=== PATIENT | male | born 1960 | race Caucasian/White ===

== ENCOUNTER 2018-11-06 01:27 | Inpatient (IN) | payer MEDICARE ==
[~2018-11-06] VITALS: Ht 182.9 cm; Wt 136.6 kg
[2018-11-06 03:08] LABS: BASOPHILS 0.2 % (0-2); EOSINOPHILS 0 % (0-7); HEMOGLOBIN 13.5 g/dL (13.5-17.5); IMMATURE GRANULOCYTES 0.4 % (0-5); LYMPHOCYTES 3.6 % (15-50); MCH 25.4 pg (26.0-34.0); MCHC 32.9 g/dL (31.0-37.0); MCV 77.2 fL (80.0-100.0); MONOCYTES 10.2 % (2-11); NEUTROPHILS 85.6 % (40-80); PLATELET COUNT 229 10x3/uL (130-400); RBC 5.31 10x6/uL (4.20-6.10); RDW 16.1 % (11.5-14.5); WBC 17.6 10x3/uL (4.8-10.8)
[2018-11-06 03:22] LABS: ALBUMIN 2.2 g/dL (3.4-5.0); ANION GAP 11.9 mmol/L (8-16); BILIRUBIN - TOTAL 1.15 mg/dL (0.2-1.3); CALCIUM 7.7 mg/dL (8.5-10.1); CARBON DIOXIDE 26.2 mmol/L (21.0-32.0); CREATININE - SERUM 1.4 mg/dL (0.6-1.3); POTASSIUM - SERUM 4.1 mmol/L (3.5-5.1); PROTEIN - SERUM 6.8 g/dL (6.4-8.2)
[2018-11-06 04:15] VITALS: BP 145/72
[2018-11-06 07:45] VITALS: BP 145/72; BMI 36.7
[2018-11-06 08:00] VITALS: BP 93/57
--- NOTE | 2018-11-06 08:30 | NUR ---
BP WAS LOW. PLACED IN [place]. WILL CONTINUE TO MONITOR.
[2018-11-06 12:30] VITALS: BP 106/109
[2018-11-06 16:00] VITALS: BP 130/60
--- NOTE | 2018-11-06 16:52 | MORECARE ---
CASE MANAGEMENT DISCHARGE SUMMARY PATIENT: KUSUM SHAY UNIT: [id number] ADM DATE: 11/06/18 AGE: 58 : 62 SEX: M ROOM/BED: D.2209 AUTHOR: BRIAN HOLLINGSWORTH PHYSICIAN: REFERRING PHYSICIAN: ALIA IZQUIERDO MD DATE OF SERVICE: 11/06/18 Discharge Plan Patient Name: KUSUM SHAY Facility: [facility]:[place] : 1960 Planned Disposition: Home Anticipated Discharge Date: Discharge Date: Expected LOS: Initial Reviewer: [id number] Initial Review Date: 11/06/2018 Generated: 11/06/18 5:52 pm Comments DCP- Discharge Planning Updated by [email or web address]: Roxanne Pineda on 11/06/18 3:[address] Patient Name: KUSUM SHAY Admission Status: ER Accout number: [id number] Admission Date: 11-06-2018 : 1960 Admission Diagnosis: Attending: ALIA IZQUIERDO Current LOS: 1 Anticipated DC Date: Planned Disposition: Home Primary Insurance: [facility] [employer] Discharge Planning Comments: CM met with patient to assess discharge planning needs. Patient stated that he lives independently at home and plans to return there at DC. He does not have a PCP and does not use any DME at home. He stated that he will call a friend to take him home and at this time he will not need Home health. His home is safe to return at DC. CM will continue to follow and assist with DC planning as needed Station Usher: Roxanne Pineda DCPIA - Discharge Planning Initial Assessment Updated by [id number]: Roxanne Pineda on 11/06/18 4:46 pm * Is the patient Alert and Oriented? Yes * How many steps to enter\exit or inside your home? * PCP NONE * Pharmacy [facility] * Preadmission Environment Home with Family * ADLs Independent * Equipment None * List name and contact numbers for known caregivers / representatives who currently or will assist patient after discharge: NONE * Verbal permission to speak to the caregivers and representatives has been obtained from the patient. N/A * Community resources currently utilized None * Additional services required to return to the preadmission environment? No * Can the patient safely return to the preadmission environment? Yes * Has this patient been hospitalized within the prior 30 days at any hospital? No Patient Name: KUSUM SHAY Page [id number] at 1652 All edits/amendments must be made on the electronic document DICTATION DATE: 11/06/181651 FEATHER MIXER: ROSELYN 11/06/181651 RPT#: [id number] DC DATE: STATUS: ADM IN [facility] [address] [place] [address] END OF REPORT
[2018-11-06 21:31] VITALS: BP 131/70
[2018-11-06 22:34] LABS: APPEARANCE CLEAR (CLEAR); BILIRUBIN NEGATIVE (NEGATIVE); COLOR YELLOW (YELLOW); GLUCOSE NEGATIVE (NEGATIVE); KETONE NEGATIVE (NEGATIVE); NITRITE NEGATIVE (NEGATIVE); PROTEIN TRACE mg/dL (NEGATIVE); UROBILINOGEN NORMAL (NORMAL)
[2018-11-07 06:16] VITALS: BP 130/79
[2018-11-07 06:47] LABS: BASOPHILS 0.3 % (0-2); EOSINOPHILS 0.1 % (0-7); HEMATOCRIT 38.2 % (42.0-54.0); HEMOGLOBIN 12.6 g/dL (13.5-17.5); IMMATURE GRANULOCYTES 0.6 % (0-5); LYMPHOCYTES 6.4 % (15-50); MCH 25.7 pg (26.0-34.0); MCV 77.8 fL (80.0-100.0); MEAN PLATELET VOLUME 11.1 fL (7.4-10.4); NEUTROPHILS 87.6 % (40-80); PLATELET COUNT 234 10x3/uL (130-400); RBC 4.91 10x6/uL (4.20-6.10); RDW 16.4 % (11.5-14.5); WBC 19.3 10x3/uL (4.8-10.8)
[2018-11-07 06:54] LABS: ALBUMIN 1.8 g/dL (3.4-5.0); ANION GAP 17.4 mmol/L (8-16); BILIRUBIN - TOTAL 1.95 mg/dL (0.2-1.3); CALCIUM 7.1 mg/dL (8.5-10.1); CARBON DIOXIDE 21.4 mmol/L (21.0-32.0); CREATININE - SERUM 1.4 mg/dL (0.6-1.3); POTASSIUM - SERUM 4.8 mmol/L (3.5-5.1); PROTEIN - SERUM 5.4 g/dL (6.4-8.2)
--- NOTE | 2018-11-07 08:28 | NUR ---
PT RESTING IN BED. SHORT TEMPERED. SCROTUM EDEMATOUS. REQUESTING TO SPEAK TO DOCTOR. SHEET ON ONLY. REFUSED TO PUT ON GOWN. NO S/S OF ACUTE DISTRESS. CL IN PLACE.
[2018-11-07 09:13] VITALS: BP 127/77
--- NOTE | 2018-11-07 11:42 | NUR ---
PT WANTING TO BE TRANSFERRED TO [facility]. PT DOES NOT FEEL HE IS GETTING "ADEQUATE CARE". SPOKE WITH CHARGE NURSE WHO SPOKE WITH KARINA WHO HAD ME CALL STONE RUBBER. SPOKE WITH STONE RUBBER ABOUT THE PT CONCERNS ABOUT SCROTUM BEING "WORSE" PER PT. NEW ODERS BEING PUT IN BY STONE RUBBER AND SHE WILL ROUND AND SEE PT SOON. CALLED DR WOLFE TO SEE IF HE WANTED TO ADD ANYTHING TO [facility] NEW ORDERS. LEFT VOICEMAIL.
--- NOTE | 2018-11-07 12:34 | NUR ---
CALLED DR WOLFE. SPOKE WITH HIM ABOUT WHAT THE SUPPORT REPRESENTATIVE HAD ORDERED AND TO CHECK AND SEE IF HE WANTED TO ADD ANYTHING. DR WOLFE WAS GOOD WITH THE SALVAGE ENGINEER ORDER AND THE CONSULT FOR SX.
[2018-11-07 15:16] VITALS: BP 154/74
--- NOTE | 2018-11-07 19:46 | NUR ---
LATE ENTRY 1400. TOLD TO PLACE PT IN ISOLATION PER RAILROAD CAR INSPECTOR. SPOKE WITH SUDEEP TEJEDA WHO STATED, PT NEEDS TO BE TRANS TO [facility]. F/C NEEDS PLACED ONCE IN UNIT. SUDEEP STEINER AND DR WOLFE CAME PRIOR TO TRANSPORT AND THEY WANTED TO KEEP PT ON FLOOR AND DO TRANSFER ONCE PT WAS OUT OF SX. FC TO BE PLACED IN SX PER DR. WOLFE. CONSENTS SIGNED WITH PT. BELONGINGS BAGGED AND SENT WITH SX WITH PT. NO S/S OF ACUTE DISTRESS. CL IN PLACE.
--- NOTE | 2018-11-07 20:24 | NUR ---
LATE ENTRY 1944 SENT WALLET, CELL PHONE, PRINCIPAL LIBRARIAN, AND GLASSES IN PERSONAL BELONGINGS BAG TO SX. SPOKE TO BARRIE. CALLED REPORT TO ALIREZA IN ICU. PT TRANS OFF UNIT BY OR STAFF. NO S/S OF ACUTE DISTRESS.
--- NOTE | 2018-11-07 22:27 | NUR ---
PATIENT PACKED WITH KERLIX SOAKED IN [place] SOLUTION.
[2018-11-07 23:05] VITALS: BP 100/66
[2018-11-08] VITALS (25 sets, daily range): BP systolic 86–125; BP diastolic 38–81; Ht 182.9 cm; Wt 136.6 kg
--- NOTE | 2018-11-08 00:21 | NUR ---
PT RECEIVED FROM RECOVERY ON ICU WITH 2 NURSES. PT PLACED ON MONITOR. DRESSING TO GROIN ASSESSED AND REINFORCED PER ORDERS TO REINFORCE ONLY. RIGHT SUBCLAVIAN NOTED WITH DRESSING C/D/I. LIRIANO WITH PINK URINE. ELECTRO OPTICS ENGINEER STARTED WITH PT INSTRUCTED ON USE AND TAUGHT PAIN MANAGEMENT. SHEET AND PAD CHANGED PT TOLERATED WELL. CALL LIGHT AND ELECTRO OPTICS ENGINEER IN REACH. WILL CONTINUE TO OBSERVE. RECEIVED ORDERS FROM DR GILES FOR CVP, BOLUS FLUIDS TO MAINTAIN URINE PRODUCTION AND CONSULT PULMONARY IN AM FOR CRITICAL CARE MANAGEMENT.
--- NOTE | 2018-11-08 02:15 | NUR ---
PT RESTING WITH EYES CLOSED AND CHEST RISING. PT ON ROOM AIR. SPO2 95% OR GREATER. WILL CONTINUE TO OBSERVE.
--- NOTE | 2018-11-08 03:20 | NUR ---
REASSESSMENT COMPLETED, SEE FLOW SHEET. CVP 10. DRESSING INTACT, NO NEED FOR REINFORCEMENT AT THIS TIME. WILL CONTINUE TO OBSERVE.
[2018-11-08 04:45] LABS: MCHC 32.4 g/dL (31.0-37.0); MCV 77.1 fL (80.0-100.0); MEAN PLATELET VOLUME 10.6 fL (7.4-10.4); PLATELET COUNT 241 10x3/uL (130-400); RDW 16.6 % (11.5-14.5); WBC 17.7 10x3/uL (4.8-10.8)
[2018-11-08 04:55] LABS: HEMATOCRIT 29.9 % (42.0-54.0); HEMOGLOBIN 9.7 g/dL (13.5-17.5); RBC 3.88 10x6/uL (4.20-6.10)
[2018-11-08 05:11] LABS: ALKALINE PHOSPHATASE 101 U/L (46-116); ALT (SGPT) 29 U/L (10-68); CALC OSMOLALITY 280 mosm/kg (275-300); CARBON DIOXIDE 23.2 mmol/L (21.0-32.0); CHLORIDE - SERUM 103 mmol/L (98-107); CREATININE - SERUM 1.6 mg/dL (0.6-1.3); GLUCOSE 124 mg/dL (74-106); PHOSPHOROUS 4.5 mg/dL (2.5-4.9); POTASSIUM - SERUM 4.7 mmol/L (3.5-5.1); PROTEIN - SERUM 4.9 g/dL (6.4-8.2); SODIUM 136 mmol/L (136-145); UREA NITROGEN 35 mg/dL (7-18); eGFR NON AFRICAN AMERICAN 48 mL/min (90-120)
[2018-11-08 05:14] LABS: LYMPHOCYTES 13 % (15-50); NEUTROPHILS 84 % (40-80); PLATELET ESTIMATE NORMAL
[2018-11-08 05:28] LABS: MAGNESIUM - SERUM 1.9 mg/dL (1.8-2.4)
[2018-11-08 05:29] LABS: ALBUMIN 1.2 g/dL (3.4-5.0); CALCIUM 6.5 mg/dL (8.5-10.1); TROPONIN-I < 0.017 ng/mL (0.000-0.060)
--- NOTE | 2018-11-08 05:35 | NUR ---
PT WATCHING TV. NO COMPLAINTS OF EXCESSIVE PAIN. USING THREAD LASTER WITHOUT REMINDING. WILL CONTINUE TO OBSERVE.
--- NOTE | 2018-11-08 07:19 | NUR ---
PULMONARY OFFICE CALLED TO INFORM OF CONSULT FOR CRITICAL MANAGEMENT. WILL CONTINUE. WILL CONTINUE TO OBSERVE.
--- NOTE | 2018-11-08 08:02 | OP ---
PATIENT NAME: KUSUM SHAY MEDICAL RECORD: [id number] :62 LOCATION:[facility] D.2309 ADMISSION DATE:11/06/18 SURGEON: AUGUSTUS WOLFE MD DATE OF OPERATION: 11/07/2018 CO-SURGEON: Augustus Thompson MD and Augustus Wolfe MD ANESTHESIA: General anesthesia by Lyle Tang CRNA. 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 PROCEDURE: By Dr. Wolfe was cystoscopy and insertion of Butler catheter. Procedure by Dr. Thompson was proctoscopy and insertion of central venous line in the right subclavian vein. Jointly done was excisional debridement of necrotic tissue, excision of the left hemiscrotum, and left orchiectomy. SPECIMENS: Necrotic skin in Camper's fascia, left hemiscrotum, left testicle and cord, and wound culture swabs. FINDINGS: Multiple abscess pockets in the Camper's fascia with necrotic fat and overlying skin. Thrombosed left spermatic cord veins, though the arterial supply was still present by the Doppler. Organized abscess formed in the lower pole of the left testicle. Main area of debridement is 320 x 130 mm in extension of the left peritoneum and includes the left hemiscrotum, which was excised, and the left inguinal region all the way lateral to the left thigh. BLOOD LOSS: Difficult to estimate. CLINICAL HISTORY: This is a 58-year-old man who has quite severe psoriasis. Otherwise, he never sees a doctor and his medical history is really unknown. He came to the Emergency Room after 3 or 4 days of severe scrotal and perineal pain. He also describes some dysuria. He had quite an elevated white count as he had a fever. Blood and urine cultures were obtained. He was started on Levaquin initially. Today, his white count was even higher and the nurses reported that the swelling in the scrotum and perineum had increased. As well, the erythema which was noted suprapubically yesterday had encroached on to the left thigh and left inguinal region. He was seen by general surgery and a CT scan was ordered. The CT scan showed gas in the left perineal region. There is also what looks like either cyst or abscess in the left testicle. He was brought to the operating room with a diagnosis of Bushra gangrene. He was informed that he will need debridement of all necrotic tissue and that this debridement may include the scrotum, the testicle, and the penis. Also, there is involvement of the rectum. We may have to create a diverting colostomy or ileostomy. He did consent to all necessary procedures and he was already on wide-spectrum antibiotics on the floor and we did not give him any further wide-spectrum antibiotics. Blood was cross matched. DESCRIPTION OF PROCEDURE: The patient was given induction of general anesthesia in supine position. He was then placed into dorsal lithotomy position using the Yellofin stirrups. He was then prepped and draped. On the floor, a Butler catheter could not be inserted due to the patient's severe tenderness and the scrotal edema effectively burying the penis. Once he was asleep, I was able to get the glans penis exposed. A flexible cystoscope was used. The urethra was OPERATIVE REPORT [id number] KUSUM SHAY completely normal. There were no signs of ischemia anywhere in the urethra. We went into the bladder, which was also normal with no bladder tumors being seen. A Sensor wire was then placed through the scope into the bladder. The cystoscope was then removed, leaving the Sensor wire in place. Over the Sensor wire, a 16-Maori sun'aq tip Butler catheter was placed into the bladder. The balloon was then inflated with 10 cc of sterile water and the wire was removed entirely. While I was doing this, Dr. Thompson placed a central venous line in the right subclavian vein. Once the cystoscopy was over Dr. Thompson then performed proctoscopy. He did not find any evidence of ischemia in the rectum. We then proceeded with excision. We first made an incision over the left perineum where the skin was most fluctuant and showed some crepitation. This immediately released a degree of pus. Culture swabs were obtained. We started to debride all the necrotic tissue. As we extended our way anteriorly, we encountered the left hemiscrotum. We opened the left hemiscrotum and pus came out of the hemiscrotum. Examining the testicle, the lower portion of the testicle was effectively an abscess. Looking at the cord on the left testicle, we noticed that there were thrombosed veins in the spermatic cord. A Doppler device was used and we did detect arterial flow in the left spermatic cord for the time being. We decided to remove the testicle as its future viability was in doubt. A large Arcelia clamp was placed across the cord and then the testicle was excised by cutting across the cord. A 2-0 Prolene suture was used for suture ligation of the cord. We then continued our dissection cranially. There was a lot of abdominal subcutaneous fat, which contained abscesses and necrosis. All of this was excised. The overlying skin did appear pink at this moment, but the underlying fat was actually necrotic. Therefore, it is only a question of time before the overlying skin would turn necrotic. We continued following the abscesses anteriorly and laterally until we were over the femoral vessels with gentle dissection. We did not go through the fascia chava. No injury to the femoral artery or other veins was present. We continued the dissection over the fascia chava until we got to viable tissue near the left greater trochanter of the hip. At this point, we had an extensive wound defect, which we measured to be 320 mm x 130 mm wide. The wound was irrigated out using peroxide. We then packed the wound with Kerlix, infiltrated with Dakin solution. Retention sutures of 2-0 nylon were used to bring some of the wound edges a bit towards each other and therefore keep the wound packing in place. He will be transferred to the intensive care unit. The plan is for a possible second look with possible repeat debridement in the near future, possibly even tomorrow. TRANSINT:[id number] Voice Confirmation ID: [id number] DOCUMENT ID: [id number] AUGUSTUS WOLFE MD at 0802 CC: [id number] DICTATION DATE: 11/07/182210 AIDS NURSE: 11/08/18 0242 ADM IN [facility] [address] [place] [address]
--- NOTE | 2018-11-08 09:00 | NUR ---
DR WOLFE IN TO SEE PATIENT
--- NOTE | 2018-11-08 12:00 | NUR ---
LUNCH TRAY PROVIDED TO PATIENT. SAYS NOT HUNGRY. REFUSES TRAY. FAMILY HAS EDGAR HIM POPCICLES
--- NOTE | 2018-11-08 14:45 | NUR ---
INCENTIVE SPIROMETRY GIVEN TO PATIENT. INSTRUCTED ON USE AND PURPOSE
--- NOTE | 2018-11-08 15:04 | NUR ---
ILEANA WITH DR IZQUIERDO OFFICE BY TO SEE PATIENT. NEW ORDERS RECEIVED
--- NOTE | 2018-11-08 19:20 | NUR ---
Received patient resting in bed with eyes open, assessment completed per flowsheet. Groin site dressing intact, drainage noted on dressing. All pulses palpable with cap refill < 3 sec, generalized edema noted all extremities. METROPOLITAN EDITOR in use for pain mgmt, denies further needs at this time. See flowsheet for details, all VSS and will continue to monitor.
--- NOTE | 2018-11-08 21:00 | NUR ---
Patient resting in bed with eyes closed, HS meds given without difficulty. BURR SANDER in use for pain mgmt, no further needs and will continue to monitor.
--- NOTE | 2018-11-08 23:10 | NUR ---
Reassessment completed per flowsheet, no changes from previous assessment. Groin dressing intact, drainage noted with dressing reinforced. All pulses palpable with cap refill < 3 sec, skin warm/dry with generalized edema noted. METHODS ENGINEER in use for pain mgmt, no further needs at this time. See flowsheet for details, all VSS and will continue to monitor.
[2018-11-09] VITALS (14 sets, daily range): BP systolic 117–130; BP diastolic 60–88
--- NOTE | 2018-11-09 01:00 | NUR ---
Patient sleeping in bed with eyes closed, denies pain or other needs at this time. Groin dressing intact, drainage noted. Denies pain or other needs and will continue to monitor.
--- NOTE | 2018-11-09 03:05 | NUR ---
Reassessment completed per flowsheet, no changes from previous assessment. Groin dressing intact, drainage noted on dressing and reinforced. All pulses palpable with cap refill < 3 sec, skin warm/dry. MARKETING PROFESSIONAL in use for pain mgmt, denies other needs at this time. See flowsheet for details, all VSS and will continue to monitor.
[2018-11-09 04:49] LABS: BASOPHILS 0.5 % (0-2); HEMATOCRIT 28.2 % (42.0-54.0); HEMOGLOBIN 9.2 g/dL (13.5-17.5); IMMATURE GRANULOCYTES 2.8 % (0-5); MCHC 32.6 g/dL (31.0-37.0); MCV 76.6 fL (80.0-100.0); MEAN PLATELET VOLUME 10.4 fL (7.4-10.4); MONOCYTES 7.4 % (2-11); NEUTROPHILS 79.3 % (40-80); RBC 3.68 10x6/uL (4.20-6.10); RDW 16.9 % (11.5-14.5); WBC 18.5 10x3/uL (4.8-10.8)
[2018-11-09 04:50] LABS: PLATELET COUNT 323 10x3/uL (130-400)
[2018-11-09 05:03] LABS: ALBUMIN 1.2 g/dL (3.4-5.0); ANION GAP 13.2 mmol/L (8-16); BILIRUBIN - TOTAL 0.85 mg/dL (0.2-1.3); POTASSIUM - SERUM 4.2 mmol/L (3.5-5.1); PROTEIN - SERUM 5.1 g/dL (6.4-8.2)
[2018-11-09 05:09] LABS: CREATININE - SERUM 1.1 mg/dL (0.6-1.3)
[2018-11-09 05:11] LABS: CALCIUM 6.6 mg/dL (8.5-10.1)
--- NOTE | 2018-11-09 13:37 | NUR ---
PRE-OP MEDICATIONS PROVIDED REQUESTED BY ARCHANA SY
--- NOTE | 2018-11-09 14:28 | NUR ---
DR GILES HAS BEEN AT BEDSIDE. EXPLAINED POTENTIALS OF SURGERY. ASKED IF THERE WERE ANY FAMILY HE SHOULD SPEAK TO AND PATIENT REQUESTED HE NOT SPEAK TO ANY OF HIS FAMILY MEMBERS. BROTHER NOW AT BEDSIDE SPEAKING WITH PATIENT. SURGERY TEAM ON UNIT.
--- NOTE | 2018-11-09 14:50 | NUR ---
DR IZQUIERDO BY TO SEE PATIENT
--- NOTE | 2018-11-09 14:58 | NUR ---
PT OFF UNIT TO Freddie
--- NOTE | 2018-11-09 20:00 | NUR ---
RECEIVED PATIENT FROM PACU, LETHARGIC BUT OPENS EYES TO VERBAL COMMAND. PATIENT IS DEMANDING SOMETHING TO EAT AND DRINK BUT WAS TOLD BY THE SALES ACCOUNT LEADER THAT HE JUST UNDERWENT A MAJOR SURGERY AND HE SHOULD WAIT A LITTLE WHILE. PATIENT AGREED. HE IS ALSO PULLING HIS O2 MASK OFF AND PULLING AT HIS CVL. RESTRAINTS WERE APPLIED IN PACU, NEW ORDER PLACED FOR HERE/ICU AND PATIENT RESTRAINED FOR HIS SAFETY. INITIAL SHIFT ASSESMENT COMPLETED, SEE FLOWSHEET. VSS. WILL MONITOR CLOSELY THROUGH OUT THE NIGHT.
--- NOTE | 2018-11-09 20:24 | NUR ---
1935 - 2 PT SOFT WRIST RESTRAINTS RELEASED. PT NOT ATTEMPTING TO PULL AT VITAL LINES, ETC. BILAT WRIST ASSESSED, NO TRAUMA OR MARKING NOTED.
--- NOTE | 2018-11-09 20:37 | OP ---
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 PROCEDURES: 1. Wide excisional debridement of necrotizing fasciitis/gas gangrene of the scrotum as well as the left anterior superior thigh, the left perineum, and a portion of the left groin and left lower quadrant. 2. Left orchiectomy. 3. Placement of right supraclavicular subclavian triple-lumen central venous line. 4. Rigid proctoscopy. SURGEON AND COSURGEON FOR THE CASE: The urologist is Dr. Wolfe. General surgeon is Dr. Augustus Giles. ANESTHESIA: General. COMPLICATIONS: None. BLOOD LOSS: Please see the anesthesia sheet. Please see the dimensions for the excisional debridement in Dr. Wolfe's note. We debrided back to viable bleeding tissue. All of the infected tissue that we could identify was excised. Dr. Wolfe performed the cystoscopy as well as placement of the Butler catheter. I performed a proctoscopy to ensure that the necrotizing fasciitis was not involving the miranda of the rectum or the anus and it appeared that indeed these structures were viable. Also, I placed a central venous line for central venous pressure monitoring as well as for numerous IV medications and total parenteral nutrition, which the patient will need. OPERATIVE COURSE: The patient was conveyed emergently to the operating room on 11/07/2018. This was after a CT scan had demonstrated gas in the subcutaneous tissues as well as in the scrotum and in the left perineum. The patient was also permitted for a colostomy. I felt that it might be necessary to perform a diverting colostomy or ileostomy in order to provide for a more hygienic environment should the debrided area involve the anus or perianal tissues. General anesthesia was induced by the anesthesia staff. The patient was placed in the lithotomy position while Dr. Wolfe was performing the cystoscopy. I sterilely prepped the right neck and right upper chest. I then percutaneously accessed the right subclavian vein utilizing a supraclavicular subclavian approach. A guidewire passed easily. A small skin vazquez was accomplished. A vessel dilator was used to dilate the subcutaneous tract. A 16-cm triple-lumen OPERATIVE REPORT [id number] KUSUM SHAY central venous catheter was inserted to the hub. It was sutured in place times 3. All lumens flushed easily and aspirated dark, nonpulsatile blood. A stat portable chest x-ray will be obtained postoperatively. After Dr. Wolfe performed cystoscopy and placement of Butler catheter with the patient still in the lithotomy position, I performed a rigid proctoscopy. I was able to advance the proctoscope all the way to the junction of the sigmoid colon and the rectum. I noted no injury to the colonic miranda and no injury to the anus. We then reprepped the perineum. Through the use of double curvilinear incisions, the skin and subcutaneous tissue was excised overlying the perineum. I then sequentially continued to excise skin and subcutaneous tissue posteriorly, medially, anteriorly, and laterally. We then began dissection in the left hemiscrotum. This was a cosurgeon case. Through the use of double curvilinear incisions overlying the base of the scrotum, we dissected down to the testicle. We dopplered the cord structures. Dr. Wolfe determined that the testicle needed to be removed. We clamped the cord structures and transected the testicle and took the cord structures distal to this and then oversewed the clamped portion with a suture ligature of large Prolene. Later in the operation, we dissected up along the cord structures and identified that we needed to take the cord structures up a bit higher. We clamped across the cord structures here and transected them distal to the clamp and then again suture ligated them with large Prolene. The dissection continued laterally almost to the anterior superior iliac spine and continued up into the left lower quadrant and continued down on to the anterior portion of the superior thigh and the dissection was done almost to the femoral vessels and then the dissection medially went to the median raphe of the scrotum, where the entire left hemiscrotum had been removed. The debridement was a piecemeal debridement. Cultures were obtained. We debrided back to viable tissue in all planes. The defect was quite large. The debrided tissues included cord structures, the left testicle, scrotal skin, perineal skin and subcutaneous tissue, thigh skin and subcutaneous tissue, small nervous structure, small vascular structure, the skin and subcutaneous tissue of the left lower quadrant. We then packed the wound with several Kerlixs that were tied together with knots that were soaked in quarter-strength Dakin's after a copious hydrogen peroxide lavage. We then kept the pack in place by loosely bringing some of the skin and subcutaneous tissue together with multiple #1 nylons over rubber bumpers and then a bulky dressing was applied. I went out and spoke to the patient's friend as he is not , he has no children, he does have some family members, and his friend stated that he will try to get hold of the family members and let them know about the grave situation. I am not certain whether he is going to be able to survive this septic insult. It is almost a surety that we will need to return to the operating room in a day or two for further debridement and possibly for fecal diversion. OPERATIVE REPORT [id number] KUSUM SHAY TRANSINT:[id number] Voice Confirmation ID: [id number] DOCUMENT ID: [id number] AUGUSTUS GILES MD at 2037 CC: ALIA IZQUIERDO, AUGUSTUS WOLFE MD, Tr [place] and [place]ANTAL [id number] DICTATION DATE: 11/07/182256 WATER CHASER: 11/08/18 0514 ADM IN [facility] [address] [place] [address]
--- NOTE | 2018-11-09 23:06 | NUR ---
NO ACUTE CHANGES NOTED. VSS. PATIENT APPEARS TO BE RESTING COMFORTABLY. WILL CTM.
[2018-11-10] VITALS (24 sets, daily range): BP systolic 113–154; BP diastolic 69–113
--- NOTE | 2018-11-10 01:06 | NUR ---
PATIENT RESTING, IN AND OUT OF SLEEP. BED AND LINENS SOAKED FROM OPEN WOUNDS LEAKING. DRESSING REINFORCED. COMPLETE BED BATH AND LINEN CHANGE DONE. PATIENT TOLERATED BUT WITH COMPLAINTS OF PAIN. VSS. WILL CTM.
[2018-11-10 05:02] LABS: MCH 25.1 pg (26.0-34.0); MCHC 32.1 g/dL (31.0-37.0); MEAN PLATELET VOLUME 10.3 fL (7.4-10.4); RBC 3.59 10x6/uL (4.20-6.10); WBC 18.6 10x3/uL (4.8-10.8)
[2018-11-10 05:04] LABS: PLATELET COUNT 419 10x3/uL (130-400)
[2018-11-10 05:12] LABS: LYMPHOCYTES 15 % (15-50); MONOCYTES 1 % (2-11); NEUTROPHILS 79 % (40-80)
[2018-11-10 05:13] LABS: PLATELET ESTIMATE NORMAL
[2018-11-10 05:21] LABS: ALBUMIN 1.1 g/dL (3.4-5.0); CARBON DIOXIDE 22.6 mmol/L (21.0-32.0); CREATININE - SERUM 1.2 mg/dL (0.6-1.3)
[2018-11-10 05:23] LABS: ANION GAP 12.5 mmol/L (8-16); CALCIUM 6.6 mg/dL (8.5-10.1); POTASSIUM - SERUM 5.1 mmol/L (3.5-5.1)
--- NOTE | 2018-11-10 08:13 | NUR ---
UP IN BED EATING BREAKFAST AT THIS TIME. NO ACUTE DISTRESS NOTED. PT ALERT AND ORIENTED. CALL LIGHT IN REACH. WILL CONTINUE PLAN OF CARE.
--- NOTE | 2018-11-10 10:13 | NUR ---
UP IN BED TALKING ON PHONE AT THIS TIME. NO ACUTE DISTRESS NOTED. WILL CONTINUE PLAN OF CARE.
--- NOTE | 2018-11-10 11:28 | NUR ---
PT ATTEMPT OF INCENTIVE SPOROMETER NOTED AT 1200.
--- NOTE | 2018-11-10 12:31 | NUR ---
UP IN BED EATING LUNCH AT THIS TIME. NO ACUTE DISTRESS NOTED. BED ALARM ON. CALL LIGHT IN REACH. WILL CONTINUE PLAN OF CARE.
--- NOTE | 2018-11-10 14:28 | NUR ---
UP IN BED RESTING AT THIS TIME, RESPIRATIONS STEADY AND UNLABORED. NO ACUTE DISTRESS NOTED. AWAKENS EASILY WHEN SPOKEN TO. CALL LIGHT IN REACH. WILL CONTINUE PLAN OF CARE.
--- NOTE | 2018-11-10 16:08 | NUR ---
THICK DARK FLUID NOTED OUT OF ILEOSTOMY, SMALL AMOUNT. ILEOSTOMY NOTED TO LEAK, CHANGED AT THIS TIME. DRESSINGS TO SITE WDL. NO ACUTE DISTRESS NOTED. WILL CONTINUE PLAN OF CARE.
--- NOTE | 2018-11-10 16:11 | NUR ---
PT REQUESTED TO NO LONGER BE A CONFIDENTIAL PATIENT. WILL NOTIFY ADMISSIONS.
--- NOTE | 2018-11-10 18:15 | NUR ---
INCISION SITE NOTED TO LEAK SEROSANG FLUID ONTO BED SATURATING BED. TOTAL LINEN CHANGE PROVIDED, LIRIANO CARE PROVIDED. DRESSING CHANGE APPLIED TO INCISION SITE, OLD DRESSINGS SATURATED. ALSO NEW ILEOSTOMY BAG PLACED TO SITE, OLD ILEOSTOMY NO LONGER ADHERED TO SKIN. WILL CONTINUE PLAN OF CARE.
--- NOTE | 2018-11-10 21:00 | NUR ---
VISITOR IN AT BS, UPDATE GIVEN AND QUESTIONS ANSWERED, PT DENIES NEEDS AT THIS TIME, BED IN LOW POSITION CALL LIGHT IN REACH.
--- NOTE | 2018-11-10 23:00 | NUR ---
REASSESSMENT COMPLETED, PT COMPLAINS OF "I AM WET", ILEOSTOMY NOTED TO BE LEAKING, COMPLETE BATH AND LINEN CHANGE PROVIDED, PT'S ILEOSTOMY BAG REMOVED AND SKIN CLEANED, NEW APPLIANCE APPLIED, MIDLINE ABD DRSG WITH SEROSANGUINOUS DRAINAGE, YOGI MIDLINE AND WELL APPROXIMATED, SITE CLEANED WITH BETADINE, COVERED, WITH BORDERED GAUZE, PT TOLERATED WELL, REPOSITIONED IN BED FOR COMFORT, VSS.
[2018-11-11] VITALS (24 sets, daily range): BP systolic 125–164; BP diastolic 68–98
--- NOTE | 2018-11-11 01:00 | NUR ---
PT RESTING IN BED, EYES CLOSED, RESP EVEN AND UNLABORED,VSS.
--- NOTE | 2018-11-11 03:00 | NUR ---
PT COMPLAINS OF "BEING ALL WET AGAIN" LEFT LATERAL DRSG SATURATED WITH SEROUS DRAINAGE, DRSG REMOVED, RETENTION SUTURES NOTED INTACT, SITE COVERED WITH 4 X4'S AND ABD PADS, COVERED WITH MEDIFOAM TAPE.
--- NOTE | 2018-11-11 05:45 | NUR ---
AM LAB DRAWN AND SENT TO LAB, VSS, NO VISITORS IN AT THIS TIME
[2018-11-11 06:27] LABS: BASOPHILS 0.7 % (0-2); EOSINOPHILS 3.1 % (0-7); HEMATOCRIT 29.4 % (42.0-54.0); HEMOGLOBIN 9.6 g/dL (13.5-17.5); IMMATURE GRANULOCYTES 8.3 % (0-5); LYMPHOCYTES 7.9 % (15-50); MCHC 32.7 g/dL (31.0-37.0); MCV 76.6 fL (80.0-100.0); MEAN PLATELET VOLUME 9.8 fL (7.4-10.4); MONOCYTES 6.5 % (2-11); NEUTROPHILS 73.5 % (40-80); PLATELET COUNT 468 10x3/uL (130-400); RBC 3.84 10x6/uL (4.20-6.10); RDW 17.2 % (11.5-14.5); WBC 15.3 10x3/uL (4.8-10.8)
[2018-11-11 06:52] LABS: ANION GAP 12.5 mmol/L (8-16); BILIRUBIN - TOTAL 0.69 mg/dL (0.2-1.3); CARBON DIOXIDE 22.2 mmol/L (21.0-32.0); CREATININE - SERUM 1.1 mg/dL (0.6-1.3); POTASSIUM - SERUM 4.7 mmol/L (3.5-5.1); PROTEIN - SERUM 5.1 g/dL (6.4-8.2)
[2018-11-11 06:55] LABS: CALCIUM 6.6 mg/dL (8.5-10.1)
--- NOTE | 2018-11-11 08:24 | NUR ---
LYING IN BED RESTING AT THIS TIME. NO ACUTE DISTRESS NOTED. RESPIRATIONS STEADY AND UNLABORED. PT AWAKENS WHEN SPOKEN TO. ABLE TO STATE NEEDS. CALL LIGHT IN REACH. WILL CONTINUE PLAN OF CARE.
--- NOTE | 2018-11-11 10:03 | NUR ---
NO ACUTE DISTRESS NOTED. NO CHANGE NEUROLOGICALLY. PT STILL OFF SEDATION AND NOT FOLLOWING COMMANDS. TURNED Q2H. WILL CONTINUE PLAN OF CARE.
--- NOTE | 2018-11-11 10:51 | NUR ---
PER DR IZQUIERDO, PT STATED HE HAS BEEN NAUSEAOUS. IF HE BEGINS TO EXPERIEINCE EMESIS THEN PLACE NGT TO LOW INT SUCTIONING TO DECOMPRESS STOMACH. WILL CONTINUE PLAN OF CARE.
--- NOTE | 2018-11-11 13:07 | NUR ---
SURGEON VENUE MANAGER PAGED AT THIS TIME. PT STAES HE STILL FEELS BAD AND HAS BEEN SPITTING UP "GASTRIC" SECRETIONS. NOTED SECRETIONS ARE SMALL AMOUNTS AND YELLOW. PT ALSO STATES HE STILL FEELS NAUSEATED AFTER RECIEVING PRN ZOFRAN. WAITING FOR CALLBACK FROM PHYSICIAN. WILL CONTINUE PLAN OF CARE.
--- NOTE | 2018-11-11 14:54 | NUR ---
PER DR TSANG, KEEP PT NPO AND NPO AFTER MIDNIGHT UNTIL SURGEON COMES TO SEE PT. STILL HAVE NOT RECIEVED CALLBACK FROM SURGEON AFTER MULTIPLE ATTEMPTS MADE. NO ACUTE DISTRESS NOTED. WILL CONTINUE PLAN OF CARE.
--- NOTE | 2018-11-11 14:56 | NUR ---
PT REQUESTS FOR SURGEON TO CALL PTS BROTHER AFTER SURGERY. WILL NOTIFY THIS TO PHYSICIAN WHEN HE ROUNDS ON PT WELL WILL NOTIFY NIGHT NURSE TO PASS ON. WILL CONTINUE PLAN OF CARE.
--- NOTE | 2018-11-11 15:24 | NUR ---
PER DR SHABANA SHEETS GIVE ZOFRAN 8MG IV NOW AND CAN START ZOFRAN DRIP IF NEEDED.
--- NOTE | 2018-11-11 15:48 | NUR ---
PT EXPERIENCED EMESIS AT THIS TIME, BILE COLORED. DR GILES PAGED AGAIN. STILL WAITING FOR A CALLBACK. STILL NO CALLBACK.
--- NOTE | 2018-11-11 16:27 | NUR ---
NGT PLACED AT THIS TIME PER SURGEONS ORDERS FOR DECOMPRESSION. 16F PLACED TO LT NARE, IMMEDICATELY FILLED AN ENTIRE SUCTION CANISTER OF 1200 ML. DARK GREEN/YELLOW SECRETIONS NOTED. NGT SET TO LOW INT SUCTIONING. NO ACUTE DISTRESS NOTED. WILL CONTINUE PLAN OF CARE.
--- NOTE | 2018-11-11 17:15 | NUR ---
TOTAL LINEN CHANGE PROVIDED AT THIS TIME WELL DRESSING CHANGE PROVIDED TO LT GROIN SITE. IODINE PLACED TO SITE, SOME REDNESS TO AREA WITH NO DRAINAGE. DRESSINGS PLACED 4X4, ABD PAD, AND MEDIPHORE TAPE. WILL NOTIFY DR GILES WHEN HE COMES TO SEE PT. WILL CONTINUE PLAN OF CARE.
--- NOTE | 2018-11-11 17:55 | NUR ---
DR GILES HAS SPOKEN WITH PT AND PTS FAMILY REGARDING MEDICAL OPTIONS. PT AND PTS FAMILY OPT TO TRANSFER TO A HIGHER LEVEL OF CARE TO A FACILITY WHICH HAS HYPERBARIC OXYGEN AND PLASTIC SURGERY. TRANSFER CENTER HAS BEEN CALLED. FACESHEET FAXED TO TRANSFER CENTER. WAITING FOR CALLBACK. NO ACUTE DISTRESS NOTED. WILL CONTINUE PLAN OF CARE.
--- NOTE | 2018-11-11 19:30 | NUR ---
SHIFT ASSESSMENT COMPLETE. PT IS A&O X4 WITH NO SIGNS OF ACUTE DISTRESS NOTED. HE DENIES ANY PAIN. PERRLA, 3 MM, BRISK REACTION TO LIGHT. NGT L NARE LIS, BROWN/YELLOW/GREEN BILE SEEN. THRUSH NOTED ON TONGUE. S1S2 AUDIBLE, EXP WHEEZES HEARD BILAT THROUGHOUT ALL LOBES. ABD IS LARGE AND FLAT, SOFT TO TOUCH. B/L LAP SITES, YOGI NOTED. MIDLINE ABD INCISION DRESSING CDI. RLQ ILEOSTOMY DRAINING DARK LIQUID STOOL. LIRIANO CATH INTACT DRAINING CONCENTRATED URINE. L LEG DRESSING CDI, NO DRAINAGE NOTED. RADIAL AND PEDAL PULSES PALP. R SUBCLAVIAN CVL INFUSING ZOFRAN GTT @ 1 MG/HR, NS @ 125 ML/HR, ABX, HYDROMORPHONE POLYMER SPECIALIST 0.2 MG WITH 10 MIN LOCKOUT. GENERALIZED SWELLING. STRONG HAND WEBSPHERE MESSAGE BROKER DEVELOPER AND FOOT PUMPS. DR. GILES AT BEDSIDE. NPO EXCEPT ICE CHIPS. ICE CHIPS BROUGHT TO BEDSIDE. CALL LIGHT IN REACH, BED IN LOWEST POSITION. WILL CONT WITH POC.
--- NOTE | 2018-11-11 19:42 | NUR ---
PER TRANSFER CENTER, PT HAS BEEN ACCEPTED TO [facility] TO DR AGUILERA. ICU BED PENDING BUT THEY WILL NOTIFY US WHEN A BED IS SELECTED.
--- NOTE | 2018-11-11 19:53 | NUR ---
PTS BROTHER/EMERGENCY CONTACT NOTIFIED THAT PT HAS BEEN ACCEPTED TO TRANSFER TO [facility].
--- NOTE | 2018-11-11 20:00 | NUR ---
SPOKE WITH [facility]. "TRANSFER BACK" PAPERWORK SIGNED AND FAXED BACK TO ANASTASIYA SNYDER RN.
--- NOTE | 2018-11-11 20:15 | NUR ---
CALLED HOUSE SUP FOR TETANUS SHOT. STATED SHE WOULD BRING IT TO UNIT.
--- NOTE | 2018-11-11 21:00 | NUR ---
ICE CHIPS BROUGHT TO BEDSIDE. FRIEND PRESENT. PT IS IN GOOD SPIRITS.
--- NOTE | 2018-11-11 22:00 | NUR ---
CALLED HOUSE [facility]P FOR TETANUS SHOT. SHE STATED TO FAX ORDER DOWN TO HER OFFICE AND THAT SHE WOULD BRING IT.
--- NOTE | 2018-11-11 23:10 | NUR ---
[facility] IN UNIT. STATED THAT SHE IS WORKING ON SOMETHING ELSE AT THIS TIME AND THAT SHE WOULD GET THE SHOT TO ME AT A DIFFERENT TIME.
[2018-11-12] VITALS (19 sets, daily range): BP systolic 104–155; BP diastolic 54–90
--- NOTE | 2018-11-12 01:00 | NUR ---
PT STATES THAT HE WANTS TO PULL OUT NGT, EDUCATED HIM ON THE BENEFITS OF KEEPING THE NGT DOWN. HE STATES THAT HE WOULD RATHER THROW UP THAN KEEP IT DOWN. REPOSITIONED FOR COMFORT. HE STATES THAT HE WILL LEAVE IT DOWN FOR NOW. WILL CONT TO REASSESS AND EDUCATE.
--- NOTE | 2018-11-12 03:00 | NUR ---
PT ABLE TO REPOSITION HIMSELF. HE IS RESTING PEACEFULLY AND DENIES ANY PAIN OR DISCOMFORT. NGT REMAINS IN PLACE AND HE STATES THAT HE UNDERSTANDS WHY HE NEEDS TO LEAVE IT IN. RLQ ILEOSTOMY DRAINING DARK LIQUID BROWN STOOL. ICE CHIPS AT BEDSIDE, THRUSH NOTED ON TONGUE. VSS. CALL LIGHT AND TARE MAN BUTTON WITHIN REACH. WILL CONT TO MONITOR CLOSELY.
--- NOTE | 2018-11-12 05:00 | NUR ---
COMPLETE LINEN CHANGE PROVIDED. REPOSITIONED FOR COMFORT. LIRIANO CARE PROVIDED. VSS. PT TOLERATED WELL. WILL CONT WITH POC.
[2018-11-12 05:20] LABS: HEMATOCRIT 24.1 % (42.0-54.0); HEMOGLOBIN 7.8 g/dL (13.5-17.5); MCHC 32.4 g/dL (31.0-37.0); MCV 77.2 fL (80.0-100.0); MEAN PLATELET VOLUME 9.8 fL (7.4-10.4); RBC 3.12 10x6/uL (4.20-6.10); RDW 17.4 % (11.5-14.5); WBC 17.1 10x3/uL (4.8-10.8)
[2018-11-12 05:22] LABS: PLATELET COUNT 663 10x3/uL (130-400)
--- NOTE | 2018-11-12 05:30 | NUR ---
PT REFUSES TO KEEP NGT IN. HE STATES THAT HE WILL PULL IT OUT HIMSELF. TO DECREASE R/F NASAL TRAUMA REMOVED NGT. EXPLAINED WHY HE NEEDED NGT. HE STATED, "I DO NOT GIVE A FK." WILL CONT WITH POC.
[2018-11-12 06:01] LABS: ALKALINE PHOSPHATASE 99 U/L (46-116); ALT (SGPT) 38 U/L (10-68); BILIRUBIN - TOTAL 0.53 mg/dL (0.2-1.3); CALC OSMOLALITY 282 mosm/kg (275-300); CARBON DIOXIDE 23.3 mmol/L (21.0-32.0); CHLORIDE - SERUM 111 mmol/L (98-107); GLUCOSE 81 mg/dL (74-106); POTASSIUM - SERUM 4.7 mmol/L (3.5-5.1); PROTEIN - SERUM 4.9 g/dL (6.4-8.2); SODIUM 141 mmol/L (136-145); UREA NITROGEN 21 mg/dL (7-18); eGFR NON AFRICAN AMERICAN 82 mL/min (90-120)
[2018-11-12 06:25] LABS: CALCIUM 6.8 mg/dL (8.5-10.1)
--- NOTE | 2018-11-12 07:20 | NUR ---
SHIFT REPORT RECEIVED. AA&OX4. DENIES PAIN AT THIS TIME. HAS DILAUDID HARP MAKER. ON ROOM AIR. LEFT SUBCLAVIAN CVL WITH NS AT 125, NS+ABX AT 10ML/HR. MIDLINE INCISION WITH DRESSING C/D/I. LAP INCISION SITES ON R&L QUADRANT. YOGI IN PLACE. NO SIGNS OF INFECTION NOTED AT THIS TIME. HAS DRESSING ON L SCROTUM/GROIN AREA. LIRIANO IN PLACE WITH CONCENTRATED YELLOW URINE NOTED. SCABS/SORES NOTED ALL OVER THE BODY. SHIFT ASSESMENT COMPLETED. SAFETY MEASURES IN PLACE. WILL CONTINUE TO MONITOR.
--- NOTE | 2018-11-12 07:50 | NUR ---
SPOKE WITH ALIREZA SHAY PT'S BROTHER. PASS CODE VERIFIED. HE WANTED TO KNOW IF PT HAD BEEN TRANSFERRE TO [facility]. INFORMED HIM THAT WE ARE STILL WAITING ON AN ICU BED.
[2018-11-12 08:15] LABS: EOSINOPHILS 4 % (0-7); LYMPHOCYTES 11 % (15-50); MONOCYTES 8 % (2-11); NEUTROPHILS 62 % (40-80); PLATELET ESTIMATE INCREASED
[2018-11-12 08:16] LABS: HYPOCHROMASIA OCC
--- NOTE | 2018-11-12 08:58 | NUR ---
NUTRITION F/U PT NPO WITH NO CURRENT NUTRITION SUPPORT. NOTE PT AWAITING TX TO [facility]. RD FOLLOWING
--- NOTE | 2018-11-12 09:28 | NUR ---
RESTING WITH EYES CLOSED. AROUSES TO VOICE. NO COMPLAINTS AT THIS TIME. UNABLE TO GIVE PO MEDS AT THIS TIME. NPO PER ORDER AND DOES NOT HAVE NG TUBE. WILL CONTINUE TO MONITOR.
--- NOTE | 2018-11-12 10:28 | NUR ---
DRESSING ON L-GROIN/SCROTAL AREA CHANGED. 4x4'S AND ABD PADS USED TO COVER INSICION. NO SIGNS OF INFECTION NOTED. BED LINENS SATURATED ON L-SIDE. COMPLETE LINEN CHANGE PROVIDED AT THIS TIME. PHONE CALLED PLACED TO ALIREZA SHAY PER PT REQUEST. HE WANTED TO ASK HIS BROTHER IF HE WAS BRINGING HIM A NEW CELL PHONE. NO OTHER NEEDS AT THIS TIME. WILL CONTINUE TO MONITOR.
[2018-11-12 10:58] LABS: PATH REVIEW PERIPHERAL SMEAR REVIEWED
--- NOTE | 2018-11-12 11:27 | NUR ---
NO ACUTE CHANGES FROM PREVIOUS ASSESSMENT. WAITING ON BED TO COME AVAILABLE AT [facility]. WILL CONTINUE TO MONITOR.
--- NOTE | 2018-11-12 13:00 | NUR ---
RESTING COMFORTABLY. ASKING FOR SPRITE. PT IS CURRENTLY NPO EXCEPT ICE CHIPS. EXPLAINED IT TO PT. HE STATES "I AM REALLY HUNGLY." NO FURTHER NEEDS.
[2018-11-12 13:15] LABS: % SATURATION 18 % (15-55); IRON 37 ug/dl (35-150); TOTAL IRON BIND CAPACITY 198 ug/dl (260-445); UNSAT IRON BIND CAPACITY 161 ug/dl (150-375)
--- NOTE | 2018-11-12 16:00 | NUR ---
RECEIVED CALL FROM TRANSFER CENTER. NO BED AVAILABLE IN [facility] AT THIS TIME.
--- NOTE | 2018-11-12 19:00 | NUR ---
SHIFT ASSESSMENT COMPLETE. PT IS A&OX4 WITH NO COMPLAINTS OF PAIN OR DISCOMFORT AT THIS TIME. HE HAS GLASSES ON AND HIS DENTURES ARE IN. RR EVEN AND UNLAORED, ROOM AIR. S1S2 AUDIBLE, NSR SHOWING ON MONITOR. EXP WHEEZES HEARD BILAT THROUGHOUT ALL LOBES. ABD ROUND, NONTENDER TO TOUCH. RLQ ILEOSTOMY INTACT, STOMA IS PINK. MIDLINE INCISION AND LAP SITES WITH YOGI NOTED. RT SUBCLAVIAN CVL INFUSING NS @ 125 ML/HR, ABX, ZOFRAN @ 1 MG/HR, AND DILAUDID CERTIFIED ACTIVITIES DIRECTOR @ 0.2 MG Q10 MIN WITH NO LOCKOUT. LEFT GROIN DRESSING CDI. LIRIANO CATH INTACT DRAINING CONCENTRATED URINE. RADIAL AND PEDAL PULSES PALP. VSS. CALL LIGHT IN REACH, BED IN LOWEST POSITION. WILL CONT WITH POC.
--- NOTE | 2018-11-12 21:00 | NUR ---
FAMILY AND FRIENDS AT BEDSIDE. VSS. PT DENIES ANY NEEDS. WILL CONT WITH POC.
--- NOTE | 2018-11-12 22:00 | NUR ---
COMPLETE BED BATH AND LINEN CHANGE PROVIDED. PT'S ILEOSTOMY WAFER LEAKED AND OOZED INTO PACKED WOUND. PAGING DR. GILES FOR FURTHER INSTRUCTION.
--- NOTE | 2018-11-12 22:15 | NUR ---
DR. DIAL ANSWERED PAGE. HE STATED TO REMOVE PACKING AND TO REPACK.
--- NOTE | 2018-11-12 23:00 | NUR ---
REPACKED WOUND, TISSUE LOOKS PINK. REDRESSED. PT TOLERATED WELL. ALL SUTURES INTACT. WILL CONT WITH POC.
[2018-11-13] VITALS (22 sets, daily range): BP systolic 113–162; BP diastolic 61–102
--- NOTE | 2018-11-13 01:25 | NUR ---
PT GIVEN COFFEE PER REQUEST. ALARMS ON AND C/L IN REACH.
--- NOTE | 2018-11-13 03:11 | NUR ---
REASSESSMENT PER FLOWSHEET, NO ACUTE CHANGES. PT AWAKENS TO NAME, DENIES NEEDS. USING OFFSET PROOF PRESS OPERATOR DILAUDID. VSS. C/L IN REACH.
--- NOTE | 2018-11-13 03:30 | NUR ---
PCXR DONE. GIVEN COFFEE PER REQUEST.
[2018-11-13 05:39] LABS: HEMATOCRIT 25.3 % (42.0-54.0); HEMOGLOBIN 8.1 g/dL (13.5-17.5); MCV 78.1 fL (80.0-100.0); MEAN PLATELET VOLUME 9.4 fL (7.4-10.4); PLATELET COUNT 662 10x3/uL (130-400); RBC 3.24 10x6/uL (4.20-6.10); RDW 17.2 % (11.5-14.5)
[2018-11-13 06:00] LABS: ALBUMIN 1.1 g/dL (3.4-5.0); ANION GAP 14.8 mmol/L (8-16); BILIRUBIN - TOTAL 0.61 mg/dL (0.2-1.3); CARBON DIOXIDE 21.8 mmol/L (21.0-32.0); CREATININE - SERUM 1.2 mg/dL (0.6-1.3); MAGNESIUM - SERUM 1.7 mg/dL (1.8-2.4); PHOSPHOROUS 4.1 mg/dL (2.5-4.9); POTASSIUM - SERUM 4.6 mmol/L (3.5-5.1); PROTEIN - SERUM 5.2 g/dL (6.4-8.2)
--- NOTE | 2018-11-13 06:00 | NUR ---
BATH/MICHAEL-CARE AND LINEN CHANGE DONE. DSG WITH SATURATED ABD PAD, CHANGED/REINFORCED. PT ASSISTED WITH TURNING.
[2018-11-13 06:08] LABS: LYMPHOCYTES 14 % (15-50); MONOCYTES 12 % (2-11); NEUTROPHILS 70 % (40-80); PLATELET ESTIMATE INCREASED
--- NOTE | 2018-11-13 07:30 | NUR ---
REPORT RECIEVED. ASSESSMENT COMPLETE PER FLWO SHEET. VSS. L GROIN DRSG CHANGE ADM COPIOUS AMOUNT OF SEROUS DRAINAGE NOTED. DENIES NEEDS WILL CONTINUE TO MONITOR
--- NOTE | 2018-11-13 09:11 | NUR ---
NUTRITION F/U DIET ADVANCED TO FULL LIQUID STARTING LUNCH TODAY. WILL PROVIDE DIET, MONITOR PT PROGRESS. RD FOLLOWING
[2018-11-13 09:18] LABS: FOLATE (FOLIC ACID) - SERUM 14.2 ng/mL (>3.0)
--- NOTE | 2018-11-13 09:30 | NUR ---
FAMILY AT BEDSIDE GIVEN UPDATE. ATE 100% BREAKFAST. DR DIAL AT BEDSIDE GIVEN UDPATE NO NEW ORDERS AT THIS TIME.
--- NOTE | 2018-11-13 11:20 | NUR ---
DR SANDRA AT BEDSIDE GIVEN UDPATE. ORDER TO TRANSFER TO FLOOR AT THIS TIME. TRANSFER CENTER CALLED GIVEN UPDATE.
--- NOTE | 2018-11-13 13:10 | NUR ---
ATE 100% LUNCH. COMPLETE BB LINEN CHANGE ADM. DENIES NEEDS WILL CONTINUE TO MONITOR
--- NOTE | 2018-11-13 18:56 | MORECARE ---
CASE MANAGEMENT DISCHARGE SUMMARY PATIENT: KUSUM SHAY UNIT: [id number] ADM DATE: 11/06/18 AGE: 58 : 62 SEX: M ROOM/BED: D.2309 AUTHOR: EDEL,DOC PHYSICIAN: REFERRING PHYSICIAN: ALIA IZQUIERDO MD DATE OF SERVICE: 11/13/18 Discharge Plan Patient Name: KUSUM SHAY Facility: [facility]:[place] : 1960 Planned Disposition: Home Anticipated Discharge Date: Discharge Date: Expected LOS: Initial Reviewer: [email or web address] Initial Review Date: 11/06/2018 Generated: 11/13/18 7:56 pm Comments DCP- Discharge Planning Updated by [id number]: Allison Kaur on 11/13/18 5:[address] CM was notified that patient has referral to transfer to [facility]. Nursing has spoke with transfer center and awaiting on bed availability. Nursing stated that transfer center has been notified that patient can go to a medical floor doesn't need to be a ICU transfer.CM will continue to follow and assist as needed with discharge planning / needs. DCP- Discharge Planning Updated by [id number]: Roxanne Pineda on 11/06/18 3:[address] Patient Name: KUSUM SHAY Admission Status: ER Accout number: [id number] Admission Date: 11-06-2018 : 1960 Admission Diagnosis: Attending: ALIA IZQUIERDO Current LOS: 1 Anticipated DC Date: Planned Disposition: Home Primary Insurance: [facility] MEDICARE SOLUTIONS Discharge Planning Comments: CM met with patient to assess discharge planning needs. Patient stated that he lives independently at home and plans to return there at [place]. He does not have a PCP and does not use any DME at home. He stated that he will call a friend to take him home and at this time he will not need Home health. His home is safe to return at [place]. CM will continue to follow and assist with DC planning as needed Hand Weaver: Roxanne Pineda DCPIA - Discharge Planning Initial Assessment Updated by [id number]: Roxanne Pineda on 11/06/18 4:46 pm * Is the patient Alert and Oriented? Yes * How many steps to enter\exit or inside your home? * PCP NONE * Pharmacy [facility] * Preadmission Environment Home with Family * ADLs Independent * Equipment None * List name and contact numbers for known caregivers / representatives who currently or will assist patient after discharge: NONE * Verbal permission to speak to the caregivers and representatives has been obtained from the patient. N/A * Community resources currently utilized None * Additional services required to return to the preadmission environment? No * Can the patient safely return to the preadmission environment? Yes * Has this patient been hospitalized within the prior 30 days at any hospital? No Last DP export: 11/06/18 3:52 pm Patient Name: KUSUM SHAY Page [id number] at 1856 All edits/amendments must be made on the electronic document DICTATION DATE: 11/13/181854 PHOTOGRAPHER SCIENTIFIC: ROSELYN 11/13/181854 RPT#: [id number] DC DATE: STATUS: ADM IN [facility] [address] [place] [address] END OF REPORT
--- NOTE | 2018-11-13 19:00 | NUR ---
RECEIVED PATIENT FROM DAY SHIFT RN. JAMES X 4. DENIES PAIN AT THIS TIME, PILE DRIVING SUPERINTENDENT PUM IN USE. INITIAL SHIFT ASSESSMENT COMPLETED, SEE FLOWSHEET. VSS. WILL MONITOR CLOSELY THROUGH OUT THE NIGHT.
--- NOTE | 2018-11-13 21:00 | NUR ---
PM MEDS GIVEN PER MD ORDERS, SEE MAR. NO ACUTE CHANGES NOTED. VSS. VISITORS AT BEDSIDE. PATIENT IN A PLEASANT MOOD. WILL CTM.
[2018-11-14] VITALS (7 sets, daily range): BP systolic 116–154; BP diastolic 69–89
--- NOTE | 2018-11-14 | NUR ---
NO ACUTE CHANGES NOTED. VSS. PATIENT SLEEPING. WILL CTM.
--- NOTE | 2018-11-14 03:00 | NUR ---
NO ACUTE CHANGES NOTED. VSS. PATIENT IN AND OUT OF SLEEP. IV ANTIBIOTICS HAVE BEEN GIVEN SCHEDULED, SEE MAR. REQUEST FOR ICE CREAM, GIVEN, TOLERATED WELL. WILL CTM.
[2018-11-14 04:45] LABS: BASOPHILS 0.6 % (0-2); EOSINOPHILS 4.2 % (0-7); HEMATOCRIT 24.6 % (42.0-54.0); HEMOGLOBIN 7.9 g/dL (13.5-17.5); IMMATURE GRANULOCYTES 10.5 % (0-5); LYMPHOCYTES 12.4 % (15-50); MCHC 32.1 g/dL (31.0-37.0); MCV 77.8 fL (80.0-100.0); MEAN PLATELET VOLUME 9.2 fL (7.4-10.4); NEUTROPHILS 63.3 % (40-80); PLATELET COUNT 756 10x3/uL (130-400); RBC 3.16 10x6/uL (4.20-6.10); RDW 17.4 % (11.5-14.5); WBC 14.6 10x3/uL (4.8-10.8)
[2018-11-14 05:14] LABS: ANION GAP 12.7 mmol/L (8-16); BILIRUBIN - TOTAL 0.61 mg/dL (0.2-1.3); CALCIUM 7.2 mg/dL (8.5-10.1); CREATININE - SERUM 1.4 mg/dL (0.6-1.3); POTASSIUM - SERUM 4.7 mmol/L (3.5-5.1); PROTEIN - SERUM 5.4 g/dL (6.4-8.2)
[2018-11-14 05:25] LABS: ALBUMIN 1.7 g/dL (3.4-5.0)
--- NOTE | 2018-11-14 07:00 | NUR ---
REPORT RECIEVED. ASSESSMENT COMPLETE PER FLOW SHEET. VSS. PT GIVEN COFFEE PER REQUEST. DENIES FURTHER NEEDS WILL CONTINEU TO MONITOR
--- NOTE | 2018-11-14 09:00 | NUR ---
NUTRITION F/U DIET ADVANCED TO REG. PT HAS ORDERS TO TX TO FLOOR. WILL CONTINUE TO PROVIDE DIET, HONOR FOOD PREFERENCES. RD FOLLOWING
--- NOTE | 2018-11-14 09:00 | NUR ---
ATE 100% BREAKFAST
--- NOTE | 2018-11-14 11:14 | NUR ---
DR SANDRA AT BEDSIDE GIVEN UPDATE NO NEW ORDERS WILL CONTINUE TO MONITOR
--- NOTE | 2018-11-14 15:42 | NUR ---
PT RECIEVED FROM ICU. REPORT TAKEN. PT A/O, NO COMPLAINTS AT THIS TIME. WOUND CARE REVIEWED BY ICU NURSE AT BEDSIDE. WILL CONTINUE TO MONITOR.
--- NOTE | 2018-11-14 19:22 | NUR ---
RECEIVED CALL FROM TRANSFER CENTER STATING THAT THERE IS STILL NO BED AVAILABLE AT [facility] FOR THIS PATIENT, THAT THEY (THE TRANSFER CENTER) WILL KEEP US UPDATED OR IF ANY NEW INFORMATION BECOMES AVAILABLE REGARDING TRANSFER ON THIS PATIENT.
--- NOTE | 2018-11-14 21:34 | NUR ---
RESTING IN BED RESP. LEIA AND UNLABORED CALL LIGHT IN REACH. NO S/S OF DISTRESS.
[2018-11-15 06:15] LABS: HEMATOCRIT 25.6 % (42.0-54.0); HEMOGLOBIN 8.2 g/dL (13.5-17.5); MEAN PLATELET VOLUME 9.2 fL (7.4-10.4); PLATELET COUNT 781 10x3/uL (130-400); RBC 3.28 10x6/uL (4.20-6.10); WBC 15.7 10x3/uL (4.8-10.8)
[2018-11-15 06:24] LABS: ALBUMIN 1.5 g/dL (3.4-5.0); BILIRUBIN - TOTAL 0.4 mg/dL (0.2-1.3); CALCIUM 7.3 mg/dL (8.5-10.1); CARBON DIOXIDE 25.7 mmol/L (21.0-32.0); CREATININE - SERUM 1.4 mg/dL (0.6-1.3); POTASSIUM - SERUM 4.7 mmol/L (3.5-5.1); PROTEIN - SERUM 5.5 g/dL (6.4-8.2)
[2018-11-15 07:34] VITALS: BP 136/72
[2018-11-15 07:57] LABS: EOSINOPHILS 4 % (0-7); HYPOCHROMASIA OCC; LYMPHOCYTES 12 % (15-50); MONOCYTES 17 % (2-11); NEUTROPHILS 62 % (40-80); PLATELET ESTIMATE INCREASED
--- NOTE | 2018-11-15 08:12 | NUR ---
PT RESTING IN BED. NO SIGNS OF DISTRESS. IV TO RIGHT SUBCLAVIAN PATENT NO REDNESS OR TENDERNESS. HAS DRESSING TO SCROTOM ALL THE AWAY AROUND. HAS LIRIANO NO KINKS PATENT. HAS ILLESTOMY TO RIGHT SIDE. DENIES ANY NEED AT THIS TIME. CALL LIGHT IN REACH. BED LOW POSITION. NO FAMILY AT BEDISDE AT THIS TIME.
--- NOTE | 2018-11-15 13:29 | MORECARE ---
CASE MANAGEMENT DISCHARGE SUMMARY PATIENT: KUSUM SHAY UNIT: [id number] ADM DATE: 11/06/18 AGE: 58 : 62 SEX: M ROOM/BED: D.2205 AUTHOR: EDELDOC PHYSICIAN: REFERRING PHYSICIAN: ALIA IZQUIERDO MD DATE OF SERVICE: 11/15/18 Discharge Plan Patient Name: KUSUM SHAY Facility: [facility]:[place] : 1960 Planned Disposition: Home Anticipated Discharge Date: Discharge Date: Expected LOS: Initial Reviewer: [email or web address] Initial Review Date: 11/06/2018 Generated: 11/15/18 2:28 pm Comments DCP- Discharge Planning Updated by [id number]: Roxanne Pineda on 11/15/18 12:[address] SPOKE WITH AGATHA AT THE TRANSFER CENTER AFTER MULTIPLE CONVERSATIONS WITH TRANSFER CENTER, DR DIAL, DR SANDRA AND PATIENT WE ARE STILL WAITING OF A BED AT [facility]. THEY ARE CONTINUING TO WORK ON GETTING A BED WITH PLASTICS. CM TO FOLLOW AND ASSIST WITH DC PLANNING DCP- Discharge Planning Updated by [id number]: Allison Kaur on 11/13/18 5:[address] CM was notified that patient has referral to transfer to [facility]. Nursing has spoke with transfer center and awaiting on bed availability. Nursing stated that transfer center has been notified that patient can go to a medical floor doesn't need to be a ICU transfer.CM will continue to follow and assist as needed with discharge planning / needs. DCP- Discharge Planning Updated by [id number]: Roxanne Pineda on 11/06/18 3:[address] Patient Name: KUSUM SHAY Admission Status: ER Accout number: [id number] Admission Date: 11-06-2018 : 1960 Admission Diagnosis: Attending: ALIA IZQUIERDO Current LOS: 1 Anticipated DC Date: Planned Disposition: Home Primary Insurance: [facility] MEDICARE SOLUTIONS Discharge Planning Comments: CM met with patient to assess discharge planning needs. Patient stated that he lives independently at home and [place]. He does not have a PCP and does not use any DME at home. He stated that he will call a friend to take him home and at this time he will not need Home health. [place]. CM will continue to follow and assist with DC planning as needed Food Safety Manager: Roxanne Pineda DCPIA - Discharge Planning Initial Assessment Updated by [id number]: Roxanne Pineda on 11/06/18 4:46 pm * Is the patient Alert and Oriented? Yes * How many steps to enter\exit or inside your home? * PCP NONE * Pharmacy [facility] * Preadmission Environment Home with Family * ADLs Independent * Equipment None * List name and contact numbers for known caregivers / representatives who currently or will assist patient after discharge: NONE * Verbal permission to speak to the caregivers and representatives has been obtained from the patient. N/A * Community resources currently utilized None * Additional services required to return to the preadmission environment? No * Can the patient safely return to the preadmission environment? Yes * Has this patient been hospitalized within the prior 30 days at any hospital? No Last DP export: 11/13/18 5:56 p Patient Name: KUSUM SHAY Page [phone] at 1329 All edits/amendments must be made on the electronic document DICTATION DATE: 11/15/18 1328 QUALITY ASSURANCE DIRECTOR: ROSELYN 11/15/18 1328 RPT#: [id number] DC DATE: STATUS: ADM IN [facility] [address] [place] [address] END OF REPORT
--- NOTE | 2018-11-15 15:09 | NUR ---
NEW ORDER RECEIVED FOR A ONE TIME DOSE OF VALIUM TO BE GIVEN TO PATIENT 45 MINUTES BEFORE DRESSING CHANGE. SPOKE WITH HEIKE ABOUT NEW ORDER ADELA
--- NOTE | 2018-11-15 16:45 | NUR ---
IN ROOM WITH DR. SANDRA TO ASSESS SURGICAL INCISION. INCISION FROM LEFT GROIN (HIP) TO PERINEAL AREA UNDER BUTTOCKS. SUTURES INTACT. REMOVED PACKING, CLEANSED WOUND AND REPACKED USING 4" KERLIX MOISTENED WITH NORMAL SALINE. 1 PIECE FOR FRONT HALF AND 1 FOR PERINIUM. PT TOLERATED WELL.
--- NOTE | 2018-11-15 18:53 | NUR ---
ALERT AND ORIENTED. RIGHT SUBCLAVIAN INFUSING. LIRIANO IN PLACE AND DRAINING. WOUND DRESSING DRY CLEAN AND INTACT. BED IN LOW POSITION AND CALL LIGHT IS IN REACH
[2018-11-15 20:00] VITALS: BP 128/58
[2018-11-16 00:01] VITALS: BP 98/55
[2018-11-16 04:00] VITALS: BP 109/66
[2018-11-16 06:30] LABS: ALBUMIN 1.4 g/dL (3.4-5.0); ANION GAP 13.3 mmol/L (8-16); BILIRUBIN - TOTAL 0.33 mg/dL (0.2-1.3); CALCIUM 7.3 mg/dL (8.5-10.1); CARBON DIOXIDE 26.3 mmol/L (21.0-32.0); CREATININE - SERUM 1.4 mg/dL (0.6-1.3); POTASSIUM - SERUM 4.6 mmol/L (3.5-5.1); PROTEIN - SERUM 5.4 g/dL (6.4-8.2)
[2018-11-16 06:42] LABS: EOSINOPHILS 2.8 % (0-7); HEMATOCRIT 26.2 % (42.0-54.0); HEMOGLOBIN 8.4 g/dL (13.5-17.5); IMMATURE GRANULOCYTES 7.2 % (0-5); LYMPHOCYTES 13.8 % (15-50); MCH 25.5 pg (26.0-34.0); MCHC 32.1 g/dL (31.0-37.0); MCV 79.4 fL (80.0-100.0); MEAN PLATELET VOLUME 9.2 fL (7.4-10.4); MONOCYTES 7.2 % (2-11); PLATELET COUNT 822 10x3/uL (130-400); RDW 18.5 % (11.5-14.5); WBC 15.7 10x3/uL (4.8-10.8)
--- NOTE | 2018-11-16 07:42 | NUR ---
PT LYING IN BED, EVEN RISE AND FALL OF CHEST NO SIGNS OF DISTRESS, ASSUME PT CARE. CL IN REACH
[2018-11-16 09:02] VITALS: BP 136/60
--- NOTE | 2018-11-16 09:25 | NUR ---
ANATOMIC PATHOLOGY ASSISTANT NOTE-RESTING QUIETLY WITH EYES CLOSED. RESP EVEN AND UNLABORED. REMAINS ON SIGN MAKER MACHINE AT BEDSIDE. LIRIANO NOTED WITH YELLOW URINE. CALL LIGHT IN REACH
[2018-11-16 13:45] VITALS: BP 144/62
[2018-11-16 16:45] VITALS: BP 122/69
[2018-11-16 19:47] VITALS: BP 128/69
[2018-11-17] VITALS: BP 109/60
[2018-11-17 01:05] LABS: BASOPHILS 0.6 % (0-2); EOSINOPHILS 2.6 % (0-7); HEMOGLOBIN 8.2 g/dL (13.5-17.5); IMMATURE GRANULOCYTES 5.4 % (0-5); LYMPHOCYTES 15.2 % (15-50); MCH 25.2 pg (26.0-34.0); MCHC 31.5 g/dL (31.0-37.0); MCV 79.8 fL (80.0-100.0); MEAN PLATELET VOLUME 9.2 fL (7.4-10.4); MONOCYTES 9.2 % (2-11); PLATELET COUNT 736 10x3/uL (130-400); RBC 3.26 10x6/uL (4.20-6.10); RDW 18.5 % (11.5-14.5); WBC 15.6 10x3/uL (4.8-10.8)
[2018-11-17 01:12] LABS: ANION GAP 10.9 mmol/L (8-16); CALCIUM 7.3 mg/dL (8.5-10.1); CARBON DIOXIDE 28.6 mmol/L (21.0-32.0); CREATININE - SERUM 1.2 mg/dL (0.6-1.3); POTASSIUM - SERUM 4.5 mmol/L (3.5-5.1); VANCOMYCIN - TROUGH 20.1 ug/mL (10.0-20.0)
[2018-11-17 04:00] VITALS: BP 109/61
--- NOTE | 2018-11-17 09:14 | NUR ---
PT ALERT X 4. BREATH SOUNDS CLEAR BILAT. ILEOSTOMY TO RLQ. CENTRAL LINE TO RIGHT SUBCLAVIAN, PATENT, DRESSING CLEAN DRY AND INTACT. MIDLINE INCISION TO ABDOMEN, YOGI, DRESSING CLEAN DRY AND INTACT. DRESSING TO INCISION ON LEFT LEG/GROIN AREA CLEAN DRY AND INTACT. PT REPORTING PAIN OF 6/10, REQUESTING MEDICATION CHANGE BACK TO MORPHINE. LIRIANO IN PLACE, URINE YELLOW AND CLEAR. BED LOW, CALL LIGHT IN REACH, NO OTHER NEEDS AT THIS TIME.
[2018-11-17 09:15] VITALS: BP 124/65
[2018-11-17 14:10] VITALS: BP 128/71
[2018-11-17 17:44] VITALS: BP 131/62
--- NOTE | 2018-11-17 18:38 | MORECARE ---
CASE MANAGEMENT DISCHARGE SUMMARY PATIENT: KUSUM SHAY UNIT: [id number] ADM DATE: 11/06/18 AGE: 58 : 62 SEX: M ROOM/BED: D.2205 AUTHOR: EDEL,DOC PHYSICIAN: REFERRING PHYSICIAN: ALIA IZQUIERDO MD DATE OF SERVICE: 11/17/18 Discharge Plan Patient Name: KUSUM SHAY Facility: [facility]:[place] : 1960 Planned Disposition: Home Anticipated Discharge Date: Discharge Date: Expected LOS: Initial Reviewer: [email or web address] Initial Review Date: 11/06/2018 Generated: 11/17/18 7:38 pm Comments DCP- Discharge Planning Updated by [email or web address]: Arcelia Keith on 11/17/18 5:[address] Patient has been accepted to [facility] the accepting Physician is Dr. Davide Cervantes. Arcelia Keith RN, [facility] DCP- Discharge Planning Updated by [email or web address]: Roxanne Pineda on 11/15/18 12:[address] SPOKE WITH AGATHA AT THE TRANSFER CENTER AFTER MULTIPLE CONVERSATIONS WITH TRANSFER CENTER, DR DIAL, DR SANDRA AND PATIENT WE ARE STILL WAITING OF A BED AT [facility]. THEY ARE CONTINUING TO WORK ON GETTING A BED WITH [employer]. CM TO FOLLOW AND ASSIST WITH DC PLANNING DCP- Discharge Planning Updated by [email or web address]: Allison Kaur on 11/13/18 5:[address] CM was notified that patient has referral to transfer to [facility]. Nursing has spoke with transfer center and awaiting on bed availability. Nursing stated that transfer center has been notified that patient can go to a medical floor doesn't need to be a ICU transfer.CM will continue to follow and assist as needed with discharge planning / needs. DCP- Discharge Planning Updated by [email or web address]: Roxanne Pineda on 11/06/18 3:[address] Patient Name: KUSUM SHAY Admission Status: ER Accout number: [id number] Admission Date: 11-06-2018 : 1960 Admission Diagnosis: Attending: ALIA IZQUIERDO Current LOS: 1 Anticipated DC Date: Planned Disposition: Home Primary Insurance: [facility] MEDICARE SOLUTIONS Discharge Planning Comments: CM met with patient to assess discharge planning needs. Patient stated that he lives independently at home and plans to return there at DC. He does not have a PCP and does not use any DME at home. He stated that he will call a friend to take him home and at this time he will not need Home health. His home is safe to return at DC. CM will continue to follow and assist with DC planning as needed Electrophonic Engineer: Roxanne Pineda DCPIA - Discharge Planning Initial Assessment Updated by [email or web address]: Roxanne Pineda on 11/06/18 4:46 pm * Is the patient Alert and Oriented? Yes * How many steps to enter\exit or inside your home? * PCP NONE * Pharmacy [facility] * Preadmission Environment Home with Family * ADLs Independent * Equipment None * List name and contact numbers for known caregivers / representatives who currently or will assist patient after discharge: NONE * Verbal permission to speak to the caregivers and representatives has been obtained from the patient. N/A * Community resources currently utilized None * Additional services required to return to the preadmission environment? No * Can the patient safely return to the preadmission environment? Yes * Has this patient been hospitalized within the prior 30 days at any hospital? No Last DP export: 11/15/18 12:28 p Patient Name: KUSUM SHAY Page [id number] at 1838 All edits/amendments must be made on the electronic document DICTATION DATE: 11/17/181837 SNACK STEWARD: ROSELYN 11/17/181837 RPT#: [id number] [place] DATE: STATUS: ADM IN [facility] [address] [place] [address] END OF REPORT
--- NOTE | 2018-11-17 18:38 | NUR ---
Patient has been accepted to [facility] the accepting Physician is Dr. Davide Cervantes. Arcelia Keith RN, CCM
--- NOTE | 2018-11-17 19:15 | NUR ---
RECEIVED CARE FROM DAY NURSE. LYING IN BED WATCHING TV. NO NEEDS VOICED AT THIS TIME. CALL LIGHT AT SIDE. IV INFUSING PER ORDER TO RIGHT TLSC. LIRIANO TO GRAVITY.
--- NOTE | 2018-11-17 20:01 | NUR ---
AMBULANCE HERE TO TRANSFER TO [facility].
[2018-11-18 20:06] LABS: AEROBE ID Final report (())
--- NOTE | 2018-11-19 12:07 | MORECARE ---
CASE MANAGEMENT DISCHARGE SUMMARY PATIENT: KUSUM SHAY UNIT: [id number] ADM DATE: 11/06/18 AGE: 58 : 62 SEX: M ROOM/BED: D.2205 AUTHOR: EDELDOC PHYSICIAN: REFERRING PHYSICIAN: ALIA IZQUIERDO MD DATE OF SERVICE: 11/19/18 Discharge Plan Patient Name: KUSUM SHAY Facility: [facility]:[place] : 1960 Planned Disposition: Home Anticipated Discharge Date: Discharge Date: 11/17/2018 Expected LOS: 0 Initial Reviewer: [email or web address] Initial Review Date: 11/06/2018 Generated: 11/19/18 1:07 pm Comments DCP- Discharge Planning Updated by [email or web address]: Arcelia Keith on 11/17/18 5:[address] Patient has been accepted to [facility] the accepting Physician is Dr. Davide Cervantes. Arcelia Keith RN, [facility] DCP- Discharge Planning Updated by [id number]: Roxanne Pineda on 11/15/18 12:[address] SPOKE WITH AGATHA AT THE TRANSFER CENTER AFTER MULTIPLE CONVERSATIONS WITH TRANSFER CENTER, DR DIAL, DR SANDRA AND PATIENT WE ARE STILL WAITING OF A BED AT [facility]. THEY ARE CONTINUING TO WORK ON GETTING A BED WITH [facility]. CM TO FOLLOW AND ASSIST WITH DC PLANNING DCP- Discharge Planning Updated by [email or web address]: Allison Kaur on 11/13/18 5:[address] CM was notified that patient has referral to transfer to [facility]. Nursing has spoke with transfer center and awaiting on bed availability. Nursing stated that transfer center has been notified that patient can go to a medical floor doesn't need to be a ICU transfer.CM will continue to follow and assist as needed with discharge planning / needs. DCP- Discharge Planning Updated by [email or web address]: Roxanne Pineda on 11/06/18 3:[address] Patient Name: KUSUM SHAY Admission Status: ER Accout number: [id number] Admission Date: 11-06-2018 : 1960 Admission Diagnosis: Attending: ALIA IZQUIERDO Current LOS: 1 Anticipated DC Date: Planned Disposition: Home Primary Insurance: [place] [employer]UTIONS Discharge Planning Comments: CM met with patient to assess discharge planning needs. Patient stated that he lives independently at home and plans to return there at DC. He does not have a PCP and does not use any DME at home. He stated that he will call a friend to take him home and at this time he will not need Home health. His home is safe to return at DC. CM will continue to follow and assist with DC planning as needed Gold Stamper: Roxanne Pineda DCPIA - Discharge Planning Initial Assessment Updated by [email or web address]: Roxanne Pineda on 11/06/18 4:46 pm * Is the patient Alert and Oriented? Yes * How many steps to enter\exit or inside your home? * PCP NONE * Pharmacy [facility] * Preadmission Environment Home with Family * ADLs Independent * Equipment None * List name and contact numbers for known caregivers / representatives who currently or will assist patient after discharge: NONE * Verbal permission to speak to the caregivers and representatives has been obtained from the patient. N/A * Community resources currently utilized None * Additional services required to return to the preadmission environment? No * Can the patient safely return to the preadmission environment? Yes * Has this patient been hospitalized within the prior 30 days at any hospital? No Last DP export: 11/17/18 5:38 p Patient Name: KUSUM SHAY Page 26826 at 1207 All edits/amendments must be made on the electronic document DICTATION DATE: 11/19/181206 CITY WEIGHMASTER: ROSELYN 11/19/18 1207 RPT#: [id number] DC DATE:11/17/18 STATUS: DIS IN [facility] [address] [place] [address] END OF REPORT
--- NOTE | 2018-11-20 14:50 | DS ---
PATIENT:KUSUM SHAY :[birth year] MEDICAL RECORD: [id number] DISCHARGE SUMMARY ADMISSION DATE: 11/06/18 DISCHARGE DATE: 11/17/18 PRINCIPAL DIAGNOSIS: Necrotizing gas-forming soft tissue infection. OTHER DIAGNOSIS: Include back surgeries times 2. PROCEDURE: 1. Excisional debridement of necrotizing soft tissue infection including left orchiectomy. Please see operative note. 2. Attempted laparoscopic ileostomy placement with conversion to open procedure. 3. Incidental appendectomy. 4. Redebridement of necrotizing soft tissue infection, please see operative note. HOSPITAL COURSE: This is a patient who admits to not going to the doctor very often. Initially, he was admitted and treated for acute bacterial prostatitis and associated bilateral epididymo-orchitis. I was asked to see him in consultation as the patient's symptoms worsened. The patient had a very swollen, red, indurated left lower quadrant/left groin, upper left thigh peritoneum as well as scrotum. His penis was retracted. He was very tender. I was unable to appreciate crepitus at that time due to the amount of induration and the fact the patient was very tender on examination. He underwent a prompt CT scan, which did reveal subcutaneous emphysema as well as emphysema in both hemiscrotal. The patient underwent the above initial operation, which was performed in conjunction with Dr. Silvestre. The patient was continued on IV antibiotics. Dr. Garcia provided us with the antibiotic choice. The patient underwent re-debridement. Initially, the patient did not want us to talk to his family. He did not even want them to be told whether he was living or dying. He did not want us to tell them anything about this operative procedure. [facility], which is Monday night, the family is at the bedside. The patient gave me his permission to discuss his condition with the family in his presence. I have discussed with them his present course as well as my plan for him. I felt that perhaps 48-72 hours ago, he might have benefited from hyperbaric oxygen therapy. At that time, he declined such therapy. Eventually, he is going to require some type of tissue transfer to the wound. Two vascular structures, which I believe are the left common femoral artery and left common femoral vein are just a few millimeters deep from the debrided area. There still is some coverage over these structures. Currently, the patient's wound is packed with quarter-strength Dakin's-soaked Kerlix. I spoke with Dr. Pedersen at [facility]. He was kind enough to accept the patient in transfer. Although he stated that the patient was not going to require hyperbaric oxygen therapy, he was willing to take the patient as the wound care needs and the need for a tissue transfer in the future exceed the capabilities of this facility. ADDENDUM: It should be noted that Mr. Shay states that his psoriasis is so bad that he will actually take a knife and scrape off the skin. He also DISCHARGE SUMMARY REPORT [id number] KUSUM SHAY soaks in a hot tub frequently. The psoriasis is quite impressive. I believe that the source of his gas-forming necrotizing soft tissue infection is bacteremia that occurred due to the psoriasis as a portal of entry for bacteria. TRANSINT:[id number] Voice Confirmation ID: [id number] DOCUMENT ID: [id number] AUGUSTUS GILES MD at 1450 CC: ALIA IZQUIERDO [id number] DICTATION DATE: 11/11/182010 BOX ICER: 11/12/18 0859 DIS IN 11/17/18 [facility] [address] [place] [id number]
--- NOTE | 2018-11-21 11:00 | OP ---
PATIENT NAME: KUSUM SHAY MEDICAL RECORD: [id number] :62 LOCATION:D.[id number] ADMISSION DATE:11/06/18 SURGEON: AUGUSTUS GILES MD DATE OF OPERATION: 11/09/2018 PREOPERATIVE DIAGNOSIS: Necrotizing fasciitis from a gas-forming organism. POSTOPERATIVE DIAGNOSES: 1. Necrotizing fasciitis from a gas-forming organism with some spread of the necrotizing soft tissue infection, mainly cephalad and laterally. 2. Some mucopurulent material within the abdomen, likely due to spread of the soft tissue infection up the left inguinal canal. 3. Adhesions in the pelvis to the ileum, which prevented me from performing the ileostomy laparoscopically. SURGEON: Augustus Giles MD STEM ROLLER OR CRUSHER OPERATOR: None. BLOOD LOSS: Please see anesthesia sheet. PROCEDURES: 1. Attempted laparoscopic ileostomy placement with conversion to an open procedure. 2. Incidental appendectomy. 3. Excisional debridement of a large open wound. The final debrided dimensions resulted in a wound that was at its greatest depth, 8.6 cm. The medial lateral dimension was 30.5 cm and the cephalad caudad dimension was 19.0 cm. The debrided tissues include skin, subcutaneous tissue, necrotic fascia as well as lymphatic tissue. The reason for the incidental appendectomy was to avoid diagnostic confusion in the future should the patient have a persistence or recurrence of abdominal pain. OPERATIVE COURSE: The patient was conveyed to the operating room electively on 11/09/2018. General anesthesia was induced by the anesthesia staff. The abdomen and genitals and left lower extremity were sterilely prepped and draped. Through a small skin vazquez in the left upper quadrant, a Veress needle was inserted. CO2 insufflation was begun. Once a sufficient pneumoperitoneum had been achieved, three 5-mm trocars were inserted, one was inserted in the left upper quadrant, one was inserted in the right upper quadrant, one was inserted at the umbilicus. During insertion of the Veress needle and all trocars, there appeared to have been no injury to the bowels, any intraperitoneal or retroperitoneal structures. Abdominal survey was undertaken. There was some turbid material within the abdomen. I began to run the small bowel with laparoscopic Babcocks. There was a point where I could no longer run the bowel and this was at the distal ileum, just at the site where I would elect to mature an ileostomy. I chose an ileostomy rather than a colostomy as I would normally bring a colostomy out on the left side and this would be too close to the patient's large open abdominal wound. I elected to perform an ileostomy instead. This was a double barrel ileostomy, which does not completely divert the fecal stream, but should be effective in preventing a significant feculent load of material being deposited OPERATIVE REPORT [id number] KUSUM SHAY in the patient's wound. It was necessary to divert the fecal stream as the caudad most portion of the wound is near the anus. In the future if there is contamination of the wound by feculent material, then, I could staple off the efferent limb. A paramedian incision was accomplished. Sharp dissection was carried down through skin and subcutaneous tissue. I incised the anterior fascia. This was a little off to the right of midline. The posterior fascia was incised. The peritoneal cavity was entered sharply. Retractors were placed. I began to run the small bowel. Again, turbid material was identified and this was not an exudative material on the bowel. It was a particulate material. I irrigated in the abdomen and aspirated until the peritoneal fluid was clear. There were some adhesions in the pelvis. I think these are likely adhesions due to prior case of diverticulitis. These adhesions were lysed. This allowed me to free up the distal ileum. A circular incision was accomplished in the right lower quadrant. Sharp dissection was carried down through skin and subcutaneous tissue to the anterior fascia. A cruciate incision was accomplished on the anterior fascia. I dissected down through the internal oblique and transversus abdominis muscles. The peritoneal cavity was entered sharply. Appendix was identified. The mesoappendix was taken down with the electrocautery. I stapled across the tip of the cecum with a ERA-75 stapler. I was able to grasp the distal ileum and brought it out through the skin incision. A window was created in the mesentery of the ileum and I placed a red rubber Frias catheter around the ileum. The midline fascia was approximated with a running looped #1 PDS from the cephalad and caudad directions. Interrupted 3-0 Vicryls were used for the subcutaneous tissue and I did elect to close the skin with metallic clips. I felt that I had done an adequate job of lavaging the abdomen and I noted no evidence of spread of the necrotizing soft tissue infection into the abdominal cavity. I then incised the ileum. I matured the stoma with interrupted 3-0 Vicryls from the full thickness ileum to the surrounding full thickness skin. I placed a silk suture tying both limbs of the red rubber Frias catheter together. A stomal appliance was then applied. Attention was then turned to debridement of the necrotizing soft tissue infection. The nylon sutures and rubber bumpers were removed. The packing was removed in its entirety. I noted some spread of the necrotizing soft tissue infection, mainly laterally and cephalad. Some debridement had to be carried out cephalad laterally as well as down on to the thigh. The tissue was sharply debrided back to bleeding viable tissue. The right scrotum appeared to be viable and actually looked better than it had at the primary operation. The penis was retracted, but appeared viable as well. The debrided tissues are listed above. The final dimensions of the debridement OPERATIVE REPORT [id number] KUSUM SHAY are listed above. I then packed the wound with quarter strength Dakin's soaked Kerlix, which were tied together. I then closed the skin as best I could over the packing in order to keep the packing in place with running #2 nylon sutures. A bulky dressing was then applied. The patient was then extubated and conveyed to the post-anesthesia care unit. I will plan for a return to the operating room during the next 24-72 hours. TRANSINT:[id number] Voice Confirmation ID: [id number] DOCUMENT ID: [id number] AUGUSTUS GILES MD at 1100 CC: [id number] DICTATION DATE: 11/11/181943 EARLY CHILDHOOD ASSOCIATE: 11/12/18 0206 DIS IN 11/17/18 [facility] [address] [place] [address]
== END 2018-11-17 20:07 | disposition short-term general hospital (02) | DRG 853 ==
LOC: D.ER 01:27 → D.ICU 03:48 → D.MS 03:48 → D.ICU 03:48 → D.MS 11-14 15:33
PROVIDERS: Family Medicine; Internal Medicine Nephrology; Internal Medicine Pulmonary Disease; Student in an Organized Health Care Education/Training Program; Surgery; Urology; ADMIT Family Medicine
PROC: 05H533Z Insertion of Infusion Device into Right Subclavian Vein, Percutaneous Approach (ICD-10-PCS; 2018-11-07)
PROC: 0DJD8ZZ Inspection of Lower Intestinal Tract, Via Natural or Artificial Opening Endoscopic (ICD-10-PCS; 2018-11-07)
PROC: 0TJB8ZZ Inspection of Bladder, Via Natural or Artificial Opening Endoscopic (ICD-10-PCS; 2018-11-07)
PROC: 0JBC0ZZ Excision of Pelvic Region Subcutaneous Tissue and Fascia, Open Approach (ICD-10-PCS; principal; 2018-11-07 19:14)
PROC: 0VT Male Reproductive System, Resection (ICD-10-PCS; 2018-11-07 19:14)
PROC: 0D1B0Z4 Bypass Ileum to Cutaneous, Open Approach (ICD-10-PCS; 2018-11-09)
PROC: 0DTJ0ZZ Resection of Appendix, Open Approach (ICD-10-PCS; 2018-11-09)
PROC: 0JBC0ZZ Excision of Pelvic Region Subcutaneous Tissue and Fascia, Open Approach (ICD-10-PCS; 2018-11-09 12:45)
DX: A41.9 Sepsis, unspecified organism (principal); M72.6 Necrotizing fasciitis; A48.0 Gas gangrene; N41.0 Acute prostatitis; N17.9 Acute kidney failure, unspecified; J98.11 Atelectasis; J90 Pleural effusion, not elsewhere classified; B96.89 Other specified bacterial agents as the cause of diseases classified elsewhere; E86.0 Dehydration; N28.9 Disorder of kidney and ureter, unspecified; L40.9 Psoriasis, unspecified; D50.9 Iron deficiency anemia, unspecified; F17.200 Nicotine dependence, unspecified, uncomplicated; D72.829 Elevated white blood cell count, unspecified; D47.3 Essential (hemorrhagic) thrombocythemia; E88.09 Other disorders of plasma-protein metabolism, not elsewhere classified; E83.42 Hypomagnesemia; N49.3 Fournier gangrene

== ENCOUNTER 2018-11-18 14:57 | Inpatient (IN) | payer MEDICARE ==
[~2018-11-18] VITALS: Ht 182.9 cm; Wt 126.1 kg
[2018-11-19] VITALS (7 sets, daily range): BP systolic 120–163; BP diastolic 58–79; Ht 182.9 cm; Wt 126.1 kg
[2018-11-19 10:42] LABS: HEMOGLOBIN 8.4 g/dL (13.5-17.5); IMMATURE GRANULOCYTES 3.1 % (0-5); LYMPHOCYTES 12.1 % (15-50); MCH 25.3 pg (26.0-34.0); MCHC 31.1 g/dL (31.0-37.0); MCV 81.3 fL (80.0-100.0); MEAN PLATELET VOLUME 9.2 fL (7.4-10.4); MONOCYTES 10.2 % (2-11); NEUTROPHILS 70.6 % (40-80); PLATELET COUNT 708 10x3/uL (130-400); RBC 3.32 10x6/uL (4.20-6.10); RDW 18.7 % (11.5-14.5); WBC 11.5 10x3/uL (4.8-10.8)
[2018-11-19 10:59] LABS: ALBUMIN 1.5 g/dL (3.4-5.0); ANION GAP 8.4 mmol/L (8-16); BILIRUBIN - TOTAL 0.3 mg/dL (0.2-1.3); CALCIUM 7.9 mg/dL (8.5-10.1); CARBON DIOXIDE 31.8 mmol/L (21.0-32.0); CREATININE - SERUM 1.3 mg/dL (0.6-1.3); POTASSIUM - SERUM 4.2 mmol/L (3.5-5.1)
--- NOTE | 2018-11-19 13:42 | MORECARE ---
CASE MANAGEMENT DISCHARGE SUMMARY PATIENT: KUSUM SHAY UNIT: [id number] ADM DATE: 11/18/18 AGE: 58 : 62 SEX: M ROOM/BED: D.2235 AUTHOR: BRIAN HOLLINGSWORTH PHYSICIAN: REFERRING PHYSICIAN: GLENN SANDRA MD DATE OF SERVICE: 11/19/18 Discharge Plan Patient Name: KUSUM SHAY Facility: [facility]:[place] : 1960 Planned Disposition: Home with Home Health Anticipated Discharge Date: Discharge Date: Expected LOS: Initial Reviewer: [email or web address] Initial Review Date: 11/19/2018 Generated: 11/19/18 2:42 pm Patient Name: KUSUM SHAY Page [id number] at 1342 All edits/amendments must be made on the electronic document DICTATION DATE: 11/19/18 1342 SUPERVISOR PROCESS TESTING: ROSELYN 11/19/18 1342 RPT#: [id number] DC DATE: STATUS: ADM IN [facility] [address] [place] [address] END OF REPORT
--- NOTE | 2018-11-19 13:50 | MORECARE ---
CASE MANAGEMENT DISCHARGE SUMMARY PATIENT: KUSUM SHAY UNIT: [id number] ADM DATE: 11/18/18 AGE: 58 : 62 SEX: M ROOM/BED: D.2235 AUTHOR: EDEL,DOC PHYSICIAN: REFERRING PHYSICIAN: GLENN SANDRA MD DATE OF SERVICE: 11/19/18 Discharge Plan Patient Name: KUSUM SHAY Facility: [facility]:[place] : 1960 Planned Disposition: Home with Home Health Anticipated Discharge Date: Discharge Date: Expected LOS: Initial Reviewer: [email or web address] Initial Review Date: 11/19/2018 Generated: 11/19/18 2:50 pm Comments DCP- Discharge Planning Updated by [email or web address]: Carlee Arias on 11/19/18 12:[address] Patient Name: KUSUM SHAY Admission Status: Elective Accout number: [id number] Admission Date: 11-18-2018 : 1960 Admission Diagnosis: Attending: GLENN SANDRA Current LOS: 1 Anticipated DC Date: Planned Disposition: Home with Home Health Primary Insurance: [facility] MEDICARE SOLUTIONS Discharge Planning Comments: CM met with patient to complete initial dc planning assessment. CM educated patient on the CM role and verbal consent given by patient to complete assessment. Patient lives alone. He is a transfer back from [facility]. I informed him that his doctor asked me to discuss discharge planning, including LTACH. He states he would like to return home on discharge from our facility. I informed him that he may need wound care and pain control [facility] He does not want me to refer him to LTACH until he speaks with Dr. Thompson. I will continue to follow and assist with discharge planning/needs. Pattern Maker Programer: Carlee Arias DCPIA - Discharge Planning Initial Assessment Updated by [email or web address]: Carlee Arias on 11/19/18 1:44 pm * Is the patient Alert and Oriented? Yes * Pharmacy [facility] * Preadmission Environment Acute Care Facility * Facility Name [facility] * ADLs Partial Dependent * Partial ADLs (Assistance needed) Ambulation Medication Management Toileting Transfers * Equipment None * Community resources currently utilized None * Additional services required to return to the preadmission environment? Yes * Can the patient safely return to the preadmission environment? No * Has this patient been hospitalized within the prior 30 days at any hospital? Yes Last DP export: 11/19/18 12:42 p Patient Name: KUSUM SHAY Page [id number] at 1350 All edits/amendments must be made on the electronic document DICTATION DATE: 11/19/18 1350 TRADE RECRUITER: ROSELYN 11/19/18 1350 RPT#: [id number] DC DATE: STATUS: ADM IN [facility] [address] [place] [address] END OF REPORT
[2018-11-20] VITALS: BP 143/68
[2018-11-20 05:19] VITALS: BP 142/79
[2018-11-20 06:21] LABS: BASOPHILS 2.1 % (0-2); EOSINOPHILS 1.8 % (0-7); HEMATOCRIT 26.1 % (42.0-54.0); HEMOGLOBIN 8.2 g/dL (13.5-17.5); IMMATURE GRANULOCYTES 1.4 % (0-5); MCH 25.4 pg (26.0-34.0); MCHC 31.4 g/dL (31.0-37.0); MCV 80.8 fL (80.0-100.0); MEAN PLATELET VOLUME 9.3 fL (7.4-10.4); MONOCYTES 8.2 % (2-11); NEUTROPHILS 72.5 % (40-80); PLATELET COUNT 706 10x3/uL (130-400); RBC 3.23 10x6/uL (4.20-6.10); RDW 18.7 % (11.5-14.5); WBC 12.2 10x3/uL (4.8-10.8)
[2018-11-20 06:40] LABS: ALBUMIN 1.5 g/dL (3.4-5.0); ANION GAP 10.4 mmol/L (8-16); BILIRUBIN - TOTAL 0.26 mg/dL (0.2-1.3); CALCIUM 7.7 mg/dL (8.5-10.1); CARBON DIOXIDE 29.8 mmol/L (21.0-32.0); CREATININE - SERUM 1.5 mg/dL (0.6-1.3); POTASSIUM - SERUM 4.2 mmol/L (3.5-5.1); PROTEIN - SERUM 6.1 g/dL (6.4-8.2)
[2018-11-20 08:27] VITALS: BP 141/75
[2018-11-20 12:04] VITALS: BP 155/64
--- NOTE | 2018-11-20 14:49 | MORECARE ---
CASE MANAGEMENT DISCHARGE SUMMARY PATIENT: KUSUM SHAY UNIT: [id number] ADM DATE: 11/18/18 AGE: 58 : 62 SEX: M ROOM/BED: D.2235 AUTHOR: EDELDOC PHYSICIAN: REFERRING PHYSICIAN: GLENN SANDRA MD DATE OF SERVICE: 11/20/18 Discharge Plan Patient Name: KUSUM SHAY Facility: [facility]:[place] : 1960 Planned Disposition: Home with Home Health Anticipated Discharge Date: Discharge Date: Expected LOS: Initial Reviewer: [email or web address] Initial Review Date: 11/19/2018 Generated: 11/20/18 3:49 pm Comments DCP- Discharge Planning Updated by [email or web address]: Carlee Arias on 11/20/18 1:[address] [facility] with Primary care states that the patient is now in agreement to LTACH referral. I called and left a message with Gertrude at [facility] in [place] and clinical faxed. CM will continue to follow and assist with discharge planning/needs. DCP- Discharge Planning Updated by [email or web address]: Carlee Arias on 11/19/18 12:[address] Patient Name: KUSUM SHAY Admission Status: Elective Accout number: [id number] Admission Date: 11-18-2018 : 1960 Admission Diagnosis: Attending: GLENN SANDRA Current LOS: 1 Anticipated DC Date: Planned Disposition: Home with Home Health Primary Insurance: [facility] MEDICARE SOLUTIONS Discharge Planning Comments: CM met with patient to complete initial dc planning assessment. CM educated patient on the CM role and verbal consent given by patient to complete assessment. Patient lives alone. He is a transfer back from [facility]. I informed him that his doctor asked me to discuss discharge planning, including LTACH. He states he would like to return home on discharge from our facility. I informed him that he may need wound care and pain [facility] He does not want me to refer him to LTACH until he speaks with Dr. Thompsno. I will continue to follow and assist with discharge planning/needs. Horse Farm Manager: Carlee Arias DCPIA - Discharge Planning Initial Assessment Updated by [email or web address]: Carlee Juana on 11/19/18 1:44 pm * Is the patient Alert and Oriented? Yes * Pharmacy [facility] * Preadmission Environment Acute Care Facility * Facility Name [facility] * ADLs Partial Dependent * Partial ADLs (Assistance needed) Ambulation Medication Management Toileting Transfers * Equipment None * Community resources currently utilized None * Additional services required to return to the preadmission environment? Yes * Can the patient safely return to the preadmission environment? No * Has this patient been hospitalized within the prior 30 days at any hospital? Yes External Providers External Provider: Juan Francisco [facility] Next Contact Date: Service Request Date: Service Type: Resolution: Reviewer: Comments: Last DP export: 11/19/18 12:50 p Patient Name: KUSUM SHAY Page 80259 at 1449 All edits/amendments must be made on the electronic document DICTATION DATE: 11/20/181448 RECORDINGS LIBRARIAN: ROSELYN 11/20/18 144 RPT#: [id number] DC DATE: STATUS: ADM IN [facility] [address] [place] [address] END OF REPORT
[2018-11-20 15:07] VITALS: BP 154/70
[2018-11-20 20:00] VITALS: BP 164/80
[2018-11-21 04:00] VITALS: BP 131/76
[2018-11-21 06:05] LABS: BASOPHILS 1.4 % (0-2); EOSINOPHILS 1.7 % (0-7); HEMOGLOBIN 8.8 g/dL (13.5-17.5); IMMATURE GRANULOCYTES 1.1 % (0-5); LYMPHOCYTES 16.5 % (15-50); MCH 25.3 pg (26.0-34.0); MCHC 31.4 g/dL (31.0-37.0); MCV 80.5 fL (80.0-100.0); MEAN PLATELET VOLUME 9.5 fL (7.4-10.4); MONOCYTES 8.3 % (2-11); PLATELET COUNT 628 10x3/uL (130-400); RBC 3.48 10x6/uL (4.20-6.10); RDW 18.6 % (11.5-14.5); WBC 10.9 10x3/uL (4.8-10.8)
[2018-11-21 06:24] LABS: ALBUMIN 1.5 g/dL (3.4-5.0); ANION GAP 12.6 mmol/L (8-16); BILIRUBIN - TOTAL 0.26 mg/dL (0.2-1.3); CALCIUM 7.9 mg/dL (8.5-10.1); CARBON DIOXIDE 27.6 mmol/L (21.0-32.0); CREATININE - SERUM 1.3 mg/dL (0.6-1.3); POTASSIUM - SERUM 4.2 mmol/L (3.5-5.1); PROTEIN - SERUM 6.1 g/dL (6.4-8.2)
[2018-11-21 08:00] VITALS: BP 150/94
[2018-11-21 12:00] VITALS: BP 152/76
[2018-11-21 17:44] VITALS: BP 150/94
[2018-11-21 17:53] VITALS: BP 139/79
[2018-11-21 20:00] VITALS: BP 136/80
[2018-11-22] VITALS: BP 130/80
[2018-11-22 04:00] VITALS: BP 138/78
[2018-11-22 06:50] LABS: BASOPHILS 2.4 % (0-2); EOSINOPHILS 1.7 % (0-7); HEMATOCRIT 27.1 % (42.0-54.0); HEMOGLOBIN 8.6 g/dL (13.5-17.5); IMMATURE GRANULOCYTES 0.7 % (0-5); LYMPHOCYTES 13.8 % (15-50); MCH 25.4 pg (26.0-34.0); MCHC 31.7 g/dL (31.0-37.0); MCV 80.2 fL (80.0-100.0); MEAN PLATELET VOLUME 9.4 fL (7.4-10.4); NEUTROPHILS 69.4 % (40-80); PLATELET COUNT 580 10x3/uL (130-400); RBC 3.38 10x6/uL (4.20-6.10); RDW 18.1 % (11.5-14.5); WBC 12.1 10x3/uL (4.8-10.8)
[2018-11-22 07:08] LABS: ALBUMIN 1.5 g/dL (3.4-5.0); ANION GAP 11.4 mmol/L (8-16); BILIRUBIN - TOTAL 0.26 mg/dL (0.2-1.3); CALCIUM 7.7 mg/dL (8.5-10.1); CARBON DIOXIDE 28.8 mmol/L (21.0-32.0); CREATININE - SERUM 1.2 mg/dL (0.6-1.3); POTASSIUM - SERUM 4.2 mmol/L (3.5-5.1); PROTEIN - SERUM 6.2 g/dL (6.4-8.2)
[2018-11-22 08:45] VITALS: BP 154/79
[2018-11-22 12:43] VITALS: BP 144/79
[2018-11-22 17:25] VITALS: BP 147/79
[2018-11-22 20:00] VITALS: BP 148/74
[2018-11-23] VITALS: BP 167/77
[2018-11-23 04:00] VITALS: BP 137/75
[2018-11-23 07:10] LABS: BASOPHILS 1.9 % (0-2); EOSINOPHILS 2.7 % (0-7); HEMATOCRIT 27.7 % (42.0-54.0); HEMOGLOBIN 8.6 g/dL (13.5-17.5); IMMATURE GRANULOCYTES 0.9 % (0-5); LYMPHOCYTES 15.3 % (15-50); MCH 25.2 pg (26.0-34.0); MCV 81.2 fL (80.0-100.0); MEAN PLATELET VOLUME 9.7 fL (7.4-10.4); NEUTROPHILS 67.2 % (40-80); PLATELET COUNT 560 10x3/uL (130-400); RBC 3.41 10x6/uL (4.20-6.10); RDW 18.2 % (11.5-14.5); WBC 10.4 10x3/uL (4.8-10.8)
[2018-11-23 07:30] LABS: ALBUMIN 1.6 g/dL (3.4-5.0); ANION GAP 12.1 mmol/L (8-16); BILIRUBIN - TOTAL 0.27 mg/dL (0.2-1.3); CALCIUM 7.7 mg/dL (8.5-10.1); CARBON DIOXIDE 27.6 mmol/L (21.0-32.0); CREATININE - SERUM 1.2 mg/dL (0.6-1.3); POTASSIUM - SERUM 4.7 mmol/L (3.5-5.1); PROTEIN - SERUM 5.8 g/dL (6.4-8.2)
[2018-11-23 08:49] VITALS: BP 156/79
--- NOTE | 2018-11-23 09:29 | MORECARE ---
CASE MANAGEMENT DISCHARGE SUMMARY PATIENT: KUSUM SHAY UNIT: [id number] ADM DATE: 11/18/18 AGE: 58 : 62 SEX: M ROOM/BED: D.2235 AUTHOR: BRIAN HOLLINGSWORTH PHYSICIAN: REFERRING PHYSICIAN: GLENN SANDRA MD DATE OF SERVICE: 11/23/18 Discharge Plan Patient Name: KUSUM SHAY Facility: [facility]:[place] : 1960 Planned Disposition: Home with Home Health Anticipated Discharge Date: Discharge Date: Expected LOS: Initial Reviewer: [email or web address] Initial Review Date: 11/19/2018 Generated: 11/23/18 10:28 am Comments DCP- Discharge Planning Updated by [email or web address]: Carlee Arias on 11/23/18 8:[address] Updated clinical sent to [facility] in [place]. Awaiting authorization from insurance for admission. CM will continue to follow and assist with discharge planning/needs. DCP- Discharge Planning Updated by [email or web address]: Carlee Arias on 11/20/18 1:[address] Joy Casanovay with Primary care states that the patient is now in agreement to LTACH referral. I called and left a message with Gertrude at [facility] in [place] and clinical faxed. CM will continue to follow and assist with discharge planning/needs. DCP- Discharge Planning Updated by [email or web address]: Carlee Arias on 11/19/18 12:[address] Patient Name: KUSUM SHAY Admission Status: Elective Accout number: [id number] Admission Date: 11-18-2018 : 1960 Admission Diagnosis: Attending: GLENN SANDRA Current LOS: 1 Anticipated DC Date: Planned Disposition: Home with Home Health Primary Insurance: [facility] MEDICARE SOLUTIONS Discharge Planning Comments: CM met with patient to complete initial dc planning assessment. CM educated patient on the CM role and verbal consent given by patient to complete assessment. Patient lives alone. He is a transfer back from [facility]. I informed him that his doctor asked me to discuss discharge planning, including LTACH. He states he would like to return home on discharge from our facility. I informed him that he may need wound care and pain control and that he could receive that at [facility]. He does not want me to refer him to [facility] until he speaks with Dr. Thompson. I will continue to follow and assist with discharge planning/needs. Education Program Specialist: Carlee Juana DCPIA - Discharge Planning Initial Assessment Updated by [email or web address]: Carlee Juana on 11/19/18 1:44 pm * Is the patient Alert and Oriented? Yes * Pharmacy [facility] * Preadmission Environment Acute Care Facility * Facility Name [facility] * ADLs Partial Dependent * Partial ADLs (Assistance needed) Ambulation Medication Management Toileting Transfers * Equipment None * Community resources currently utilized None * Additional services required to return to the preadmission environment? Yes * Can the patient safely return to the preadmission environment? No * Has this patient been hospitalized within the prior 30 days at any hospital? Yes Last DP export: 11/20/18 1:49 p Patient Name: KUSUM SHAY Page 38108 at 0929 All edits/amendments must be made on the electronic document DICTATION DATE: 11/23/18927 LEAK DETECTOR: ROSELYN 11/23/18927 RPT#: [id number] DC DATE: STATUS: ADM IN [facility] [address] [place] [address] END OF REPORT
--- NOTE | 2018-11-23 12:03 | MORECARE ---
CASE MANAGEMENT DISCHARGE SUMMARY PATIENT: KUSUM SHAY UNIT: [id number] ADM DATE: 11/18/18 AGE: 58 : 62 SEX: M ROOM/BED: D.2235 AUTHOR: EDEL,DOC PHYSICIAN: REFERRING PHYSICIAN: GLENN SANDRA MD DATE OF SERVICE: 11/23/18 Discharge Plan Patient Name: KUSUM SHAY Facility: [facility]:[place] : 1960 Planned Disposition: Home with Home Health Anticipated Discharge Date: Discharge Date: Expected LOS: Initial Reviewer: [email or web address] Initial Review Date: 11/19/2018 Generated: 11/23/18 1:03 pm Comments DCP- Discharge Planning Updated by [email or web address]: Carlee Arias on 11/23/18 11:[address] Met with patient and informed him that [facility] will not have a bed available until next week. I asked if he would like a referral to a skilled therapy. He states he plans on being home next week with home health. States he can walk around fine with a walker and does not need to be anywhere but home. States he will need home health daily to do his dressing change. He states that he does not have anyone that can do a daily dressing change. I informed him that typically home health will come 3 times a week and can instruct someone on dressing changes. He states he has no one that can do it and he cannot do it either. He refuses skilled therapy at this time. CM will continue to follow and assist with discharge planning/needs. DCP- Discharge Planning Updated by [email or web address]: Carlee Arias on 11/23/18 8:[address] Updated clinical sent to [facility] in [place]. Awaiting authorization from insurance for admission. CM will continue to follow and assist with discharge planning/needs. DCP- Discharge Planning Updated by [email or web address]: Carlee Arias on 11/20/18 1:[address] Joy Childress with Primary care states that the patient is now in agreement to LTACH referral. I called and left a message with Gertrude at [facility] in [place] and clinical faxed. CM will continue to follow and assist with discharge planning/needs. DCP- Discharge Planning Updated by [email or web address]: Carlee Arias on 11/19/18 12:[address] Patient Name: KUSUM SHAY Admission Status: Elective Accout number: [id number] Admission Date: 11-18-2018 : 1960 Admission Diagnosis: Attending: GLENN SANDRA Current LOS: 1 Anticipated DC Date: Planned Disposition: Home with Home Health Primary Insurance: [facility] MEDICARE SOLUTIONS Discharge Planning Comments: CM met with patient to complete initial dc planning assessment. CM educated patient on the CM role and verbal consent given by patient to complete assessment. Patient lives alone. He is a transfer back from [facility]. I informed him that his doctor asked me to discuss discharge planning, including LTACH. He states he would like to return home on discharge from our facility. I informed him that he may need wound care and pain control and that he [facility] receive that [facility]. He does not want me to refer him to [facility] until he speaks with Dr. Thompson. I will continue to follow and assist with discharge planning/needs. Wrapper Sorter: Carlee Juana DCPIA - Discharge Planning Initial Assessment Updated by [email or web address]: Carlee Arias on 11/19/18 1:44 pm * Is the patient Alert and Oriented? Yes * Pharmacy [facility] * Preadmission Environment Acute Care Facility * Facility Name [facility] * ADLs Partial Dependent * Partial ADLs (Assistance needed) Ambulation Medication Management Toileting Transfers * Equipment None * Community resources currently utilized None * Additional services required to return to the preadmission environment? Yes * Can the patient safely return to the preadmission environment? No * Has this patient been hospitalized within the prior 30 days at any hospital? Yes Last DP export: 11/23/18 8:28 a Patient Name: KUSUM SHAY Page [phone] at 1203 All edits/amendments must be made on the electronic document DICTATION DATE: 11/23/181201 TOE POUNDER: ROSELYN 11/23/181201 RPT#: [id number] DC DATE: STATUS: ADM IN [facility] [address] [place] [address] END OF REPORT
[2018-11-23 12:35] VITALS: BP 137/80
[2018-11-23] MEDS ORDERED: GABAPENTIN100 MG PO (13:58)
[2018-11-23] MEDS ORDERED: LIDODERM 5 %1 PATCH TRANSDERM (13:59)
[2018-11-23] MEDS ORDERED: ROBAXIN PO (13:59)
[2018-11-23] MEDS ORDERED: oxyCODONE IR PO (13:59)
--- NOTE | 2018-11-23 14:22 | MORECARE ---
CASE MANAGEMENT DISCHARGE SUMMARY PATIENT: KUSUM SHAY UNIT: [id number] ADM DATE: 11/18/18 AGE: 58 : 62 SEX: M ROOM/BED: D.2235 AUTHOR: EDEL,DOC PHYSICIAN: REFERRING PHYSICIAN: GLENN SANDRA MD DATE OF SERVICE: 11/23/18 Discharge Plan Patient Name: KUSUM SHAY Facility: [facility]:[place] : 1960 Planned Disposition: Home with Home Health Anticipated Discharge Date: Discharge Date: Expected LOS: Initial Reviewer: [email or web address] Initial Review Date: 11/19/2018 Generated: 11/23/18 3:22 pm Comments DCP- Discharge Planning Updated by [email or web address]: Carlee Arias on 11/23/18 11:[address] Met with patient and informed him that [facility] will not have a bed available until next week. I asked if he would like a referral to a skilled therapy. He states he plans on being home next week with home health. States he can walk around fine with a walker and does not need to be anywhere but home. States he will need home health daily to do his dressing change. He states that he does not have anyone that can do a daily dressing change. I informed him that typically home health will come 3 times a week and can instruct someone on dressing changes. He states he has no one that can do it and he cannot do it either. He refuses skilled therapy at this time. CM will continue to follow and assist with discharge planning/needs. DCP- Discharge Planning Updated by [email or web address]: Carlee Arias on 11/23/18 8:[address] Updated clinical sent to [facility] in [place]. Awaiting authorization from insurance for admission. CM will continue to follow and assist with discharge planning/needs. DCP- Discharge Planning Updated by [email or web address]: Carlee Arias on 11/20/18 1:[address] Joy Childress with Primary care states that the patient is now in agreement to LTACH referral. I called and left a message with Gertrude at [facility] in [place] and clinical faxed. CM will continue to follow and assist with discharge planning/needs. DCP- Discharge Planning Updated by [email or web address]: Carlee Juana on 11/19/18 12:[address] Patient Name: KUSUM SHAY Admission Status: Elective Accout number: [id number] Admission Date: 11-18-2018 : 1960 Admission Diagnosis: Attending: GLENN SANDRA Current LOS: 1 Anticipated DC Date: Planned Disposition: Home with Home Health Primary Insurance: [facility] MEDICARE SOLUTIONS Discharge Planning Comments: CM met with patient to complete initial dc planning assessment. CM educated patient on the CM role and verbal consent given by patient to complete assessment. Patient lives alone. He is a transfer back from [facility]. I informed him that his doctor asked me to discuss discharge planning, including LTACH. He states he would like to return home on discharge from our facility. I informed him that he may need wound care and pain control and that [facility]. He does not want me to [facility] until he speaks with Dr. Thompson. I will continue to follow and assist with discharge planning/needs. Tooling Supervisor: Carlee Arias DCPIA - Discharge Planning Initial Assessment Updated by [email or web address]: Carlee Hindssharon on 11/19/18 1:44 pm * Is the patient Alert and Oriented? Yes * Pharm[facility] * Preadmission Environment Acute Care Facility * Facility Name [facility] * ADLs Partial Dependent * Partial ADLs (Assistance needed) Ambulation Medication Management Toileting Transfers * Equipment None * Community resources currently utilized None * Additional services required to return to the preadmission environment? Yes * Can the patient safely return to the preadmission environment? No * Has this patient been hospitalized within the prior 30 days at any hospital? Yes External Providers External Provider: OTHER-OTHER Next Contact Date: Service Request Date: Service Type: Resolution: Reviewer: Comments: Last DP export: 11/23/18 11:03 a Patient Name: KUSUM SHAY Page 92169 at 1422 All edits/amendments must be made on the electronic document DICTATION DATE: 11/23/181421 ELECTRONIC CONTROLS REPAIRER SUPERVISOR: ROSELYN 11/23/181421 RPT#: [id number] DC DATE: STATUS: ADM IN [facility] [address] [place] [address] END OF REPORT
--- NOTE | 2018-11-23 14:39 | MORECARE ---
CASE MANAGEMENT DISCHARGE SUMMARY PATIENT: KUSUM SHAY UNIT: [id number] ADM DATE: 11/18/18 AGE: 58 : 62 SEX: M ROOM/BED: D.2235 AUTHOR: EDEL,DOC PHYSICIAN: REFERRING PHYSICIAN: GLENN SANDRA MD DATE OF SERVICE: 11/23/18 Discharge Plan Patient Name: KUSUM SHAY Facility: [facility]:[place] : 1960 Planned Disposition: Home with Home Health Anticipated Discharge Date: Discharge Date: Expected LOS: Initial Reviewer: [email or web address] Initial Review Date: 11/19/2018 Generated: 11/23/18 3:39 pm Comments DCP- Discharge Planning Updated by [email or web address]: Carlee Arias on 11/23/18 1:[address] Patient to discharge home on Monday. I called [facility] in [place] (they service [place]) at [phone] and spoke with Ondina, referral given. I faxed the clinical to [phone]. I also informed Karen with [facility] and informed patient does have a new ostomy and will need ostomy supplies and teaching. I called Gianna with wound care for ostomy teaching. CM will continue to follow and assist with discharge planning/needs. DCP- Discharge Planning Updated by [email or web address]: Carlee Arias on 11/23/18 11:[address] Met with patient and informed him that [facility] will not have a bed available until next week. I asked if he would like a referral to a skilled therapy. He states he plans on being home next week with home health. States he can walk around fine with a walker and does not need to be anywhere but home. States he will need home health daily to do his dressing change. He states that he does not have anyone that can do a daily dressing change. I informed him that typically home health will come 3 times a week and can instruct someone on dressing changes. He states he has no one that can do it and he cannot do it either. He refuses skilled therapy at this time. CM will continue to follow and assist with discharge planning/needs. DCP- Discharge Planning Updated by [email or web address]: Carlee Arias on 11/23/18 8:[address] Updated clinical sent to [facility] in [place]. Awaiting authorization from insurance for admission. CM will continue to follow and assist with discharge planning/needs. DCP- Discharge Planning Updated by [email or web address]: Carlee Juaan on 11/20/18 1:[address] Joy Childress with Primary care states that the patient is now in agreement to LTACH referral. I called and left a message with Gertrude at [facility] in [place] and clinical faxed. CM will continue to follow and assist with discharge planning/needs. DCP- Discharge Planning Updated by [email or web address]: Carlee Juana on 11/19/18 12:[address] Patient Name: KUSUM SHAY Admission Status: Elective Accout number: [id number] Admission Date: 11-18-2018 : 1960 Admission Diagnosis: Attending: GLENN SANDRA Current LOS: 1 Anticipated DC Date: Planned Disposition: Home with Home Health Primary Insurance: [facility] MEDICARE SOLUTIONS Discharge Planning Comments: CM met with patient to complete initial dc planning assessment. CM educated patient on the CM role and verbal consent given by patient to complete assessment. Patient lives alone. He is a transfer back from [facility]. I informed him that his doctor asked me to discuss discharge planning, including LTACH. He states he would like to return home on discharge from our facility. I informed him that he may need wound care and pain control and that [facility]. He does not want me to refer him to [facility] until he speaks with Dr. Thompson. I will continue to follow and assist with discharge planning/needs. Rental Car Porter: Carlee Arias DCPIA - Discharge Planning Initial Assessment Updated by [email or web address]: Carlee Arias on 11/19/18 1:44 pm * Is the patient Alert and Oriented? Yes * Pharmacy [place] * Preadmission Environment Acute Care Facility * Facility Name [facility] * ADLs Partial Dependent * Partial ADLs (Assistance needed) Ambulation Medication Management Toileting Transfers * Equipment None * Community resources currently utilized None * Additional services required to return to the preadmission environment? Yes * Can the patient safely return to the preadmission environment? No * Has this patient been hospitalized within the prior 30 days at any hospital? Yes Last DP export: 11/23/18 1:22 p Patient Name: KUSUM SHAY Page 92575 at 1439 All edits/amendments must be made on the electronic document DICTATION DATE: 11/23/181438 DIRECTOR PATIENT: ROSELYN 11/23/181438 RPT#: [id number] DC DATE: STATUS: ADM IN [facility] [address] [place] [address] END OF REPORT
--- NOTE | 2018-11-23 16:44 | MORECARE ---
CASE MANAGEMENT DISCHARGE SUMMARY PATIENT: KUSUM SHAY UNIT: [id number] ADM DATE: 11/18/18 AGE: 58 : 62 SEX: M ROOM/BED: D.2235 AUTHOR: EDEL,DOC PHYSICIAN: REFERRING PHYSICIAN: GLENN SANDRA MD DATE OF SERVICE: 11/23/18 Discharge Plan Patient Name: KUSUM SHAY Facility: [facility]:[place] : 1960 Planned Disposition: Home with Home Health Anticipated Discharge Date: Discharge Date: Expected LOS: Initial Reviewer: [email or web address] Initial Review Date: 11/19/2018 Generated: 11/23/18 5:43 pm Comments DCP- Discharge Planning Updated by [email or web address]: Christi Linton on 11/23/18 3:[address] Patient to discharge home on Monday. I called [facility] in [place] ([facility] [place]) at [phone] and spoke with Ondina, referral given. I faxed the clinical to [phone]. I also informed Frederic with [facility] and informed patient does have a new ostomy and will need ostomy supplies and teaching. I called Gianna with wound care for ostomy teaching. CM will continue to follow and assist with discharge planning/needs. Appended by Christi Linton on 11/23/2018 16:36 GAME PRESERVE MANAGER: CM SPOKE WITH FREDERIC AT [facility] AND THEY CANNOT ACCEPT THE PATIENT. CM WILL WORK ON FINDING ANOTHER AGENCY FOR THIS PATIENT. DCP- Discharge Planning Updated by [id number]: Carlee Arias on 11/23/18 11:[address] Met with patient and informed him that [facility] will not have a bed available until next week. I asked if he would like a referral to a skilled therapy. He states he plans on being home next week with home health. States he can walk around fine with a walker and does not need to be anywhere but home. States he will need home health daily to do his dressing change. He states that he does not have anyone that can do a daily dressing change. I informed him that typically home health will come 3 times a week and can instruct someone on dressing changes. He states he has no one that can do it and he cannot do it either. He refuses skilled therapy at this time. CM will continue to follow and assist with discharge planning/needs. DCP- Discharge Planning Updated by [email or web address]: Carlee Arias on 11/23/18 8:[address] Updated clinical sent to [facility] in [place]. Awaiting authorization from insurance for admission. CM will continue to follow and assist with discharge planning/needs. DCP- Discharge Planning Updated by [email or web address]: Carlee Arias on 11/20/18 1:[address] Joy Childress with Primary care states that the patient is now in agreement to LTACH referral. I called and left a message with Gertrude at [facility] in [place] and clinical faxed. CM will continue to follow and assist with discharge planning/needs. DCP- Discharge Planning Updated by [email or web address]: Carlee Arias on 11/19/18 12:[address] Patient Name: KUSUM SHAY Admission Status: Elective Accout number: [id number] Admission Date: 11-18-2018 : 1960 Admission Diagnosis: Attending: GLENN SANDRA Current LOS: 1 Anticipated DC Date: Planned Disposition: Home with Home Health Primary Insurance: [facility] MEDICARE SOLUTIONS Discharge Planning Comments: CM met with patient to complete initial dc planning assessment. CM educated patient on the CM role and verbal consent given by patient to complete assessment. Patient lives alone. He is a transfer back from [facility]. I informed him that his doctor asked me to discuss discharge planning, including LTACH. He states he would like to return home on discharge from our facility. I informed him that he may need wound care and pain control and that he [facility] receive that [facility]. He does not want me to refer him to LTACH until he speaks with Dr. Thompson. I will continue to follow and assist with discharge planning/needs. Slurry Tank Tender: Carlee Arias DCPIA - Discharge Planning Initial Assessment Updated by [email or web address]: Carlee Arias on 11/19/18 1:44 pm * Is the patient Alert and Oriented? Yes * Pharmacy [facility] * Preadmission Environment Acute Care Facility * Facility Name [facility] * ADLs Partial Dependent * Partial ADLs (Assistance needed) Ambulation Medication Management Toileting Transfers * Equipment None * Community resources currently utilized None * Additional services required to return to the preadmission environment? Yes * Can the patient safely return to the preadmission environment? No * Has this patient been hospitalized within the prior 30 days at any hospital? Yes Last DP export: 11/23/18 1:39 p Patient Name: KUSUM SHAY Page [id number] at 1644 All edits/amendments must be made on the electronic document DICTATION DATE: 11/23/181642 TECHNOLOGY AUDITOR: ROSELYN 11/23/181642 RPT#: [id number] DC DATE: STATUS: ADM IN [facility] [address] [place] [address] END OF REPORT
--- NOTE | 2018-11-23 17:09 | MORECARE ---
CASE MANAGEMENT DISCHARGE SUMMARY PATIENT: KUSUM SHAY UNIT: [id number] ADM DATE: 11/18/18 AGE: 58 : 62 SEX: M ROOM/BED: D.2235 AUTHOR: EDEL,DOC PHYSICIAN: REFERRING PHYSICIAN: GLENN SNADRA MD DATE OF SERVICE: 11/23/18 Discharge Plan Patient Name: KUSUM SHAY Facility: [facility]:[place] : 1960 Planned Disposition: Home with Home Health Anticipated Discharge Date: Discharge Date: Expected LOS: Initial Reviewer: [id number] Initial Review Date: 11/19/2018 Generated: 11/23/18 6:08 pm Comments DCP- Discharge Planning Updated by [email or web address]: Carlee Arias on 11/23/18 3:[address] I just received a call from Frederic with [facility] and she states that the [place] office will not be able to see this patient on Monday. I called Naren with [facility] and he states that they can start care on Monday morning. Clinical faxed to [phone]. DCP- Discharge Planning Updated by [email or web address]: Christi Linton on 11/23/18 3:[address] Patient to discharge home on Monday. I called [facility] in [place] (they service [place]) at [phone] and spoke with Ondina, referral given. I faxed the clinical to [phone]. I also informed Frederic with [facility] and informed patient does have a new ostomy and will need ostomy supplies and teaching. I called Gianna with wound care for ostomy teaching. CM will continue to follow and assist with discharge planning/needs. Appended by Christi Linton on 11/23/2018 16:36 MISCELLANEOUS MACHINE OPERATOR: CM SPOKE WITH FREDERIC AT [facility] AND THEY CANNOT ACCEPT THE PATIENT. CM WILL WORK ON FINDING ANOTHER AGENCY FOR THIS PATIENT. DCP- Discharge Planning Updated by [email or web address]: Carlee Arias on 11/23/18 11:[address] Met with patient and informed him that [facility] will not have a bed available until next week. I asked if he would like a referral to a skilled therapy. He states he plans on being home next week with home health. States he can walk around fine with a walker and does not need to be anywhere but home. States he will need home health daily to do his dressing change. He states that he does not have anyone that can do a daily dressing change. I informed him that typically home health will come 3 times a week and can instruct someone on dressing changes. He states he has no one that can do it and he cannot do it either. He refuses skilled therapy at this time. CM will continue to follow and assist with discharge planning/needs. DCP- Discharge Planning Updated by [email or web address]: Carlee Arias on 11/23/18 8:[address] Updated clinical sent to [facility] in [place]. Awaiting authorization from insurance for admission. CM will continue to follow and assist with discharge planning/needs. DCP- Discharge Planning Updated by [email or web address]: Carlee Arias on 11/20/18 1:[address] Joy Childress with Primary care states that the patient is now in agreement to LTACH referral. I called and left a message with Gertrude at [facility] in [place] and clinical faxed. CM will continue to follow and assist with discharge planning/needs. DCP- Discharge Planning Updated by [email or web address]: Carlee Arias on 11/19/18 12:[address] Patient Name: KUSUM SHAY Admission Status: Elective Accout number: [id number] Admission Date: 11-18-2018 : 1960 Admission Diagnosis: Attending: GLENN SANDRA Current LOS: 1 Anticipated DC Date: Planned Disposition: Home with Home Health Primary Insurance: [facility] MEDICARE SOLUTIONS Discharge Planning Comments: CM met with patient to complete initial dc planning assessment. CM educated patient on the CM role and verbal consent given by patient to complete assessment. Patient lives alone. He is a transfer back from [facility]. I informed him that his doctor asked me to discuss discharge planning, including LTACH. He states he would like to return home on discharge from our facility. I informed him that he may need wound care and pain control and that he could receive that at [facility]. He does not want me to refer him to [facility] until he speaks with Dr. Thompson. I will continue to follow and assist with discharge planning/needs. Museum Or Zoo Director: Carlee Orrell DCPIA - Discharge Planning Initial Assessment Updated by [email or web address]: Carlee Arias on 11/19/18 1:44 pm * Is the patient Alert and Oriented? Yes * Pharmacy [place] * Preadmission Environment Acute Care Facility * Facility Name [facility] * ADLs Partial Dependent * Partial ADLs (Assistance needed) Ambulation Medication Management Toileting Transfers * Equipment None * Community resources currently utilized None * Additional services required to return to the preadmission environment? Yes * Can the patient safely return to the preadmission environment? No * Has this patient been hospitalized within the prior 30 days at any hospital? Yes External Providers External Provider: [employer] Next Contact Date: Service Request Date: Service Type: Resolution: Reviewer: Comments: Last DP export: 11/23/18 3:43 p Patient Name: KUSUM SHAY Page [id number] at 1709 All edits/amendments must be made on the electronic document DICTATION DATE: 11/23/181707 TRUSS MAKER: ROSELYN 11/23/181707 RPT#: [id number] DC DATE: STATUS: ADM IN [facility] [address] [place] [address] END OF REPORT
[2018-11-23 20:00] VITALS: BP 135/83
[2018-11-23 20:35] LABS: HEMATOCRIT 28.4 % (42.0-54.0); HEMOGLOBIN 8.8 g/dL (13.5-17.5); MCH 25.3 pg (26.0-34.0); MCV 81.6 fL (80.0-100.0); MEAN PLATELET VOLUME 9.2 fL (7.4-10.4); PLATELET COUNT 504 10x3/uL (130-400); RBC 3.48 10x6/uL (4.20-6.10); WBC 9.7 10x3/uL (4.8-10.8)
[2018-11-23 20:53] LABS: ALBUMIN 1.7 g/dL (3.4-5.0); ANION GAP 13.8 mmol/L (8-16); BILIRUBIN - TOTAL 0.23 mg/dL (0.2-1.3); CALCIUM 7.6 mg/dL (8.5-10.1); CARBON DIOXIDE 26.7 mmol/L (21.0-32.0); CREATININE - SERUM 1.3 mg/dL (0.6-1.3); POTASSIUM - SERUM 4.5 mmol/L (3.5-5.1)
[2018-11-23 21:08] LABS: EOSINOPHILS 5 % (0-7); LYMPHOCYTES 23 % (15-50); MONOCYTES 5 % (2-11); NEUTROPHILS 67 % (40-80); PLATELET ESTIMATE INCREASED
[2018-11-24] VITALS: BP 170/81
[2018-11-24 04:00] VITALS: BP 129/72
[2018-11-24 07:31] LABS: BASOPHILS 2.4 % (0-2); HEMATOCRIT 28.3 % (42.0-54.0); HEMOGLOBIN 8.8 g/dL (13.5-17.5); IMMATURE GRANULOCYTES 0.8 % (0-5); LYMPHOCYTES 17.7 % (15-50); MCHC 31.1 g/dL (31.0-37.0); MCV 80.4 fL (80.0-100.0); MEAN PLATELET VOLUME 9.4 fL (7.4-10.4); MONOCYTES 13.2 % (2-11); NEUTROPHILS 61.9 % (40-80); PLATELET COUNT 533 10x3/uL (130-400); RBC 3.52 10x6/uL (4.20-6.10); RDW 17.9 % (11.5-14.5); WBC 8.9 10x3/uL (4.8-10.8)
[2018-11-24 07:57] LABS: ALBUMIN 1.7 g/dL (3.4-5.0); ANION GAP 12.6 mmol/L (8-16); BILIRUBIN - TOTAL 0.29 mg/dL (0.2-1.3); CARBON DIOXIDE 25.7 mmol/L (21.0-32.0); CREATININE - SERUM 1.3 mg/dL (0.6-1.3); POTASSIUM - SERUM 4.3 mmol/L (3.5-5.1); PROTEIN - SERUM 6.7 g/dL (6.4-8.2)
[2018-11-24 09:00] VITALS: BP 143/87
[2018-11-24 14:44] VITALS: BP 149/88
[2018-11-24 18:20] VITALS: BP 142/83
[2018-11-24 20:00] VITALS: BP 150/68
[2018-11-25] VITALS: BP 148/70
[2018-11-25 04:00] VITALS: BP 130/54
[2018-11-25 06:55] LABS: ALBUMIN 1.7 g/dL (3.4-5.0); ANION GAP 14.3 mmol/L (8-16); BILIRUBIN - TOTAL 0.3 mg/dL (0.2-1.3); CALCIUM 7.9 mg/dL (8.5-10.1); CARBON DIOXIDE 24.6 mmol/L (21.0-32.0); CREATININE - SERUM 1.3 mg/dL (0.6-1.3); POTASSIUM - SERUM 4.9 mmol/L (3.5-5.1); PROTEIN - SERUM 6.8 g/dL (6.4-8.2)
[2018-11-25 07:12] LABS: BASOPHILS 2.3 % (0-2); EOSINOPHILS 3.4 % (0-7); HEMATOCRIT 28.7 % (42.0-54.0); HEMOGLOBIN 8.9 g/dL (13.5-17.5); IMMATURE GRANULOCYTES 0.9 % (0-5); LYMPHOCYTES 19.7 % (15-50); MCH 25.1 pg (26.0-34.0); MCV 80.8 fL (80.0-100.0); MEAN PLATELET VOLUME 9.7 fL (7.4-10.4); MONOCYTES 12.2 % (2-11); NEUTROPHILS 61.5 % (40-80); PLATELET COUNT 525 10x3/uL (130-400); RBC 3.55 10x6/uL (4.20-6.10); RDW 17.6 % (11.5-14.5); WBC 9.2 10x3/uL (4.8-10.8)
[2018-11-25 09:41] VITALS: BP 147/84
[2018-11-25 14:08] VITALS: BP 134/75
[2018-11-25 18:25] VITALS: BP 137/76
[2018-11-25 20:00] VITALS: BP 146/76
[2018-11-26] VITALS: BP 140/70
[2018-11-26 04:00] VITALS: BP 127/78
[2018-11-26 07:37] LABS: ALBUMIN 1.9 g/dL (3.4-5.0); ANION GAP 15.6 mmol/L (8-16); BILIRUBIN - TOTAL 0.19 mg/dL (0.2-1.3); CALCIUM 8.1 mg/dL (8.5-10.1); CARBON DIOXIDE 25.9 mmol/L (21.0-32.0); CREATININE - SERUM 1.3 mg/dL (0.6-1.3); POTASSIUM - SERUM 4.5 mmol/L (3.5-5.1); PROTEIN - SERUM 6.9 g/dL (6.4-8.2)
[2018-11-26 07:51] LABS: BASOPHILS 3.3 % (0-2); HEMATOCRIT 29.8 % (42.0-54.0); HEMOGLOBIN 9.3 g/dL (13.5-17.5); IMMATURE GRANULOCYTES 0.7 % (0-5); MCH 25.2 pg (26.0-34.0); MCHC 31.2 g/dL (31.0-37.0); MCV 80.8 fL (80.0-100.0); MEAN PLATELET VOLUME 9.7 fL (7.4-10.4); MONOCYTES 13.2 % (2-11); NEUTROPHILS 54.8 % (40-80); PLATELET COUNT 534 10x3/uL (130-400); RBC 3.69 10x6/uL (4.20-6.10); RDW 17.5 % (11.5-14.5)
[2018-11-26 08:54] VITALS: BP 154/83
--- NOTE | 2018-11-26 09:29 | MORECARE ---
CASE MANAGEMENT DISCHARGE SUMMARY PATIENT: KUSUM SHAY UNIT: [id number] ADM DATE: 11/18/18 AGE: 58 : 62 SEX: M ROOM/BED: D.2235 AUTHOR: EDEL,DOC PHYSICIAN: REFERRING PHYSICIAN: GLENN SANDRA MD DATE OF SERVICE: 11/26/18 Discharge Plan Patient Name: KUSUM SHAY Facility: [facility]:[place] : 1960 Planned Disposition: Home with Home Health Anticipated Discharge Date: Discharge Date: Expected LOS: Initial Reviewer: [email or web address] Initial Review Date: 11/19/2018 Generated: 11/26/18 10:29 am Comments DCP- Discharge Planning Updated by [email or web address]: Carlee Juana on 11/26/18 8:[address] Patient states he is ready for discharge. States his family is on their way to pick him up. He continues to refuse LTACH or SNF.I asked him about an overhead trapeze for his hospital bed and a walker. He does not want to sign DME paper. He states "I'll get it myself". I informed him that I could order it from a medical equipment supply company and have it delivered to his home, he states "I can order it myself online." Declines other assistance. I called Audrey with [facility] and Audrey states they will start seeing him tomorrow. I informed the intelligence clerk to set up house calls to begin on Monday. Updated clinical sent to [facility] in . CM will continue to follow and assist as needed. DCP- Discharge Planning Updated by [email or web address]: Carlee Arias on 11/23/18 3:[address] I just received a call from Karen with [facility] and she states that the [place] office will not be able to see this patient on Monday. I called Naren with [facility] and he states that they can start care on Monday morning. Clinical faxed to [phone]. DCP- Discharge Planning Updated by [email or web address]: Christi Linton on 11/23/18 3:[address] Patient to discharge home on Monday. I called [facility] in [place] (they service [place]) at [phone] and spoke with Ondina, referral given. I faxed the clinical to [phone]. I also informed Karen with [facility] [place] and informed patient does have a new ostomy and will need ostomy supplies and teaching. I called Gianna with wound care for ostomy teaching. CM will continue to follow and assist with discharge planning/needs. Appended by Christi Linton on 11/23/2018 16:36 FUEL CELL REPAIRER: CM SPOKE WITH KAREN AT [facility] AND THEY CANNOT ACCEPT THE PATIENT. CM WILL WORK ON FINDING ANOTHER AGENCY FOR THIS PATIENT. DCP- Discharge Planning Updated by [id number]: Carlee Arias on 11/23/18 11:[address] Met with patient and informed him that [facility] will not have a bed available until next week. I asked if he would like a referral to a skilled therapy. He states he plans on being home next week with home health. States he can walk around fine with a walker and does not need to be anywhere but home. States he will need home health daily to do his dressing change. He states that he does not have anyone that can do a daily dressing change. I informed him that typically home health will come 3 times a week and can instruct someone on dressing changes. He states he has no one that can do it and he cannot do it either. He refuses skilled therapy at this time. CM will continue to follow and assist with discharge planning/needs. DCP- Discharge Planning Updated by [id number]: Carlee Arias on 11/23/18 8:[address] Updated clinical sent to [facility] in [place]. Awaiting authorization from insurance for admission. CM will continue to follow and assist with discharge planning/needs. DCP- Discharge Planning Updated by [email or web address]: Carlee Arias on 11/20/18 1:[address] Joy Childress with Primary care states that the patient is now in agreement to LTACH referral. I called and left a message with Gertrude at [facility] in [place] and clinical faxed. CM will continue to follow and assist with discharge planning/needs. DCP- Discharge Planning Updated by [email or web address]: Carlee Arias on 11/19/18 12:[address] Patient Name: KUSUM SHAY Admission Status: Elective Accout number: [id number] Admission Date: 11-18-2018 : 1960 Admission Diagnosis: Attending: GLENN SANDRA Current LOS: 1 Anticipated DC Date: Planned Disposition: Home with Home Health Primary Insurance: [facility] MEDICARE SOLUTIONS Discharge Planning Comments: CM met with patient to complete initial dc planning assessment. CM educated patient on the CM role and verbal consent given by patient to complete assessment. Patient lives alone. He is a transfer back from [facility]. I informed him that his doctor asked me to discuss discharge planning, including LTACH. He states he would like to return home on discharge from our facility. I informed him that he may need wound care and pain control and that he could receive that at [facility]. He does not want me to refer him to LTACH until he speaks with Dr. Thompson. I will continue to follow and assist with discharge planning/needs. Case Liner: Carlee Arias DCPIA - Discharge Planning Initial Assessment Updated by [email or web address]: Carlee Arias on 11/19/18 1:44 pm * Is the patient Alert and Oriented? Yes * Pharmacy [facility] * Preadmission Environment Acute Care Facility * Facility Name [facility] * ADLs Partial Dependent * Partial ADLs (Assistance needed) Ambulation Medication Management Toileting Transfers * Equipment None * Community resources currently utilized None * Additional services required to return to the preadmission environment? Yes * Can the patient safely return to the preadmission environment? No * Has this patient been hospitalized within the prior 30 days at any hospital? Yes Coverage Notice Reviewer: [id number] - Carlee Arias Notice Issued Date-Time: 11/26/2018 9:10 Notice Type: IM Discharge Notice Notice Delivered To: Patient Relationship to Patient: Self Energy Management Specialist Name: Delivery Method: HAND - Hand Delivered Alexandra Days: Prior Verbal Notification: Recipient Understood Notice: Yes Recipient Signature: Yes Med Rec Note Co-signed by Attending: Coverage Notice Comment: IMM explained, signed, given, copy placed in MR Last DP export: 11/23/18 4:09 p Patient Name: KUSUM SHAY Page [phone] at 0929 All edits/amendments must be made on the electronic document DICTATION DATE: 11/26/18927 CONSTRUCTION SUPERVISOR/CARPENTER: ROSELYN 11/26/18927 RPT#: [id number] DC DATE: STATUS: ADM IN [facility] [address] [place] [address] END OF REPORT
--- NOTE | 2018-11-26 12:21 | MORECARE ---
CASE MANAGEMENT DISCHARGE SUMMARY PATIENT: KUSUM SHAY UNIT: [id number] ADM DATE: 11/18/18 AGE: 58 : 62 SEX: M ROOM/BED: D.2235 AUTHOR: EDELDOC PHYSICIAN: REFERRING PHYSICIAN: GLENN SANDRA MD DATE OF SERVICE: 11/26/18 Discharge Plan Patient Name: KUSUM SHAY Facility: [facility]:[place] : 1960 Planned Disposition: Home with Home Health Anticipated Discharge Date: Discharge Date: Expected LOS: Initial Reviewer: [email or web address] Initial Review Date: 11/19/2018 Generated: 11/26/18 1:21 pm Comments DCP- Discharge Planning Updated by [email or web address]: Carlee Arias on 11/26/18 11:[address] Discharging today with [facility], his ride is in the room. [facility] to see tomorrow. House calls to see on Monday. He declines DME needs. States "I will get what I need myself." CM will continue to follow and assist with discharge planning/needs. DCP- Discharge Planning Updated by [id number]: Carlee Arias on 11/26/18 8:[address] Patient states he is ready for discharge. States his family is on their way to pick him up. He continues to refuse LTACH or SNF.I asked him about an overhead trapeze for his hospital bed and a walker. He does not want to sign DME paper. He states "I'll get it myself". I informed him that I could order it from a medical equipment supply [employer] and have it delivered to his home, he states "I can order it myself online." Declines other assistance. I called Audrey with [facility] and Audrey states they will start seeing him tomorrow. I informed the filing clerk to set up house calls to begin on Monday. Updated clinical sent to [facility] in . CM will continue to follow and assist as needed. DCP- Discharge Planning Updated by [email or web address]: Carlee Juana on 11/23/18 3:[address] I just received a call from Karen with [facility] and she states that the [place] office will not be able to see this patient on Monday. I called Naren with [facility] and he states that they can start care on Monday morning. Clinical faxed to [phone]. DCP- Discharge Planning Updated by [email or web address]: Christi Linton on 11/23/18 3:[address] Patient to discharge home on Monday. I called [facility] in [place] (they service [place]) at [phone] and spoke with Ondina, referral given. I faxed the clinical to [phone]. I also informed Karen with [facility] and informed patient does have a new ostomy and will need ostomy supplies and teaching. I called Gianna with wound care for ostomy teaching. CM will continue to follow and assist with discharge planning/needs. Appended by Christi Linton on 11/23/2018 16:36 PRODUCTION LEAD: CM SPOKE WITH KAREN AT [facility] AND THEY CANNOT ACCEPT THE PATIENT. CM WILL WORK ON FINDING ANOTHER AGENCY FOR THIS PATIENT. DCP- Discharge Planning Updated by [email or web address]: Carlee Arias on 11/23/18 11:[address] Met with patient and informed him that [facility] will not have a bed available until next week. I asked if he would like a referral to a skilled therapy. He states he plans on being home next week with home health. States he can walk around fine with a walker and does not need to be anywhere but home. States he will need home health daily to do his dressing change. He states that he does not have anyone that can do a daily dressing change. I informed him that typically home health will come 3 times a week and can instruct someone on dressing changes. He states he has no one that can do it and he cannot do it either. He refuses skilled therapy at this time. CM will continue to follow and assist with discharge planning/needs. DCP- Discharge Planning Updated by [id number]: Carlee Arias on 11/23/18 8:[address] Updated clinical sent to [facility] in [place]. Awaiting authorization from insurance for admission. CM will continue to follow and assist with discharge planning/needs. DCP- Discharge Planning Updated by [email or web address]: Carlee Arias on 11/20/18 1:[address] Joy Childress with Primary care states that the patient is now in agreement to LTACH referral. I called and left a message with Gertrude at [facility] in [place] and clinical faxed. CM will continue to follow and assist with discharge planning/needs. DCP- Discharge Planning Updated by [email or web address]: Carlee Arias on 11/19/18 12:[address] Patient Name: KUSUM SHAY Admission Status: Elective Accout number: [id number] Admission Date: 11-18-2018 : 1960 Admission Diagnosis: Attending: GLENN SANDRA Current LOS: 1 Anticipated DC Date: Planned Disposition: Home with Home Health Primary Insurance: [facility] MEDICARE SOLUTIONS Discharge Planning Comments: CM met with patient to complete initial dc planning assessment. CM educated patient on the CM role and verbal consent given by patient to complete assessment. Patient lives alone. He is a transfer back from [facility]. I informed him that his doctor asked me to discuss discharge planning, including LTACH. He states he would like to return home on discharge from our facility. I informed him that he may need wound care and pain control and that he could receive that at LTACH. He does not want me to refer him to LTACH until he speaks with Dr. Thompson. I will continue to follow and assist with discharge planning/needs. Thermal Surfacing Machine Operator: Carlee Arias DCPIA - Discharge Planning Initial Assessment Updated by [email or web address]: Carlee Arias on 11/19/18 1:44 pm * Is the patient Alert and Oriented? Yes * Pharmacy [facility] * Preadmission Environment Acute Care Facility * Facility Name [facility] * ADLs Partial Dependent * Partial ADLs (Assistance needed) Ambulation Medication Management Toileting Transfers * Equipment None * Community resources currently utilized None * Additional services required to return to the preadmission environment? Yes * Can the patient safely return to the preadmission environment? No * Has this patient been hospitalized within the prior 30 days at any hospital? Yes Coverage Notice Reviewer: [id number] - Carlee Arias Notice Issued Date-Time: 11/26/2018 9:10 Notice Type: IM Discharge Notice Notice Delivered To: Patient Relationship to Patient: Self Pearl Diver Name: Delivery Method: HAND - Hand Delivered Alexandra Days: Prior Verbal Notification: Recipient Understood Notice: Yes Recipient Signature: Yes Med Rec Note Co-signed by Attending: Coverage Notice Comment: IMM explained, signed, given, copy placed in MR Last DP export: 11/26/18 8:29 a Patient Name: KUSUM SHAY Page [id number] at 1221 All edits/amendments must be made on the electronic document DICTATION DATE: 11/26/181219 JAVA J2EE TECHNICAL LEAD: ROSELYN 11/26/180 RPT#: [id number] DC DATE: STATUS: ADM IN [facility] [address] [place] [address] END OF REPORT
[2018-11-26 12:47] VITALS: BP 155/89
== END 2018-11-26 13:41 | disposition home health service (06) | DRG 558 ==
LOC: D.MS 14:57
PROVIDERS: Family Medicine; ADMIT Internal Medicine Nephrology
DX: M72.6 Necrotizing fasciitis (principal); N17.9 Acute kidney failure, unspecified; N45.2 Orchitis; N45.3 Epididymo-orchitis; D64.9 Anemia, unspecified

== ENCOUNTER 2018-11-29 03:28 | Inpatient (IN) | payer MEDICARE ==
[~2018-11-29] VITALS: Ht 182.9 cm; Wt 124.7 kg
[2018-11-29] VITALS (9 sets, daily range): BP systolic 108–137; BP diastolic 56–84; Ht 182.9 cm; Wt 124.7 kg
[~2018-11-29 03:28] MED LIST: GABAPENTIN100 MG PO; LIDODERM 5 %1 PATCH TRANSDERM; ROBAXIN PO; oxyCODONE IR PO
[2018-11-29 04:05] LABS: BASOPHILS 1.4 % (0-2); EOSINOPHILS 3.6 % (0-7); HEMATOCRIT 31.6 % (42.0-54.0); HEMOGLOBIN 9.8 g/dL (13.5-17.5); IMMATURE GRANULOCYTES 1.1 % (0-5); LYMPHOCYTES 24.2 % (15-50); MCH 25.1 pg (26.0-34.0); MCV 80.8 fL (80.0-100.0); MEAN PLATELET VOLUME 9.3 fL (7.4-10.4); NEUTROPHILS 57.7 % (40-80); PLATELET COUNT 580 10x3/uL (130-400); RBC 3.91 10x6/uL (4.20-6.10); RDW 17.5 % (11.5-14.5); WBC 8.7 10x3/uL (4.8-10.8)
[2018-11-29 04:09] LABS: APTT 28.6 SECONDS (22.8-39.4); INR 1.09 (0.85-1.17); PROTIME 13.6 SECONDS (11.6-15.0)
[2018-11-29 04:15] LABS: ALBUMIN 2.2 g/dL (3.4-5.0); ALKALINE PHOSPHATASE 169 U/L (46-116); ALT (SGPT) 39 U/L (10-68); BILIRUBIN - TOTAL 0.21 mg/dL (0.2-1.3); CALC OSMOLALITY 282 mosm/kg (275-300); CALCIUM 8.2 mg/dL (8.5-10.1); CHLORIDE - SERUM 101 mmol/L (98-107); CREATININE - SERUM 1.5 mg/dL (0.6-1.3); GLUCOSE 124 mg/dL (74-106); POTASSIUM - SERUM 4.9 mmol/L (3.5-5.1); PROTEIN - SERUM 7.7 g/dL (6.4-8.2); SODIUM 138 mmol/L (136-145); UREA NITROGEN 29 mg/dL (7-18); eGFR NON AFRICAN AMERICAN 51 mL/min (90-120)
[2018-11-29 04:26] LABS: CKMB 0.4 U/L (0.0-3.6); CREATINE KINASE 19 UL (21-232); TROPONIN-I < 0.017 ng/mL (0.000-0.060)
--- NOTE | 2018-11-29 05:07 | NUR ---
PT GONE TO CT
--- NOTE | 2018-11-29 05:20 | NUR ---
PT REQUESTED PAIN MEDICATION AFTER RETURNING FROM CT. NOTIFIED DR. BENITEZ
--- NOTE | 2018-11-29 08:44 | NUR ---
Pt admitted to [facility] this morning from ER. On 11/09/18 pt had excisional debridement due to necrotizing fasciitis. The incision includes left hip, abdomen, perineum. Sutures were removed during pts last admission to hospital. The incision is open with red beefy granulating tissue. There is no odor. The current wound care treatment being used by home health is wet to dry dressings using kerlix and normal saline and it is working well as evidenced by the healthy granulating tissue. 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 Stoma is healthy. Pt has white shiny crusty patches from torso to feet. 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 Recommendations: -continue with wet to dry dressings at incision site -frequent personal care with bowel incontinent episodes (he has ileostomy that is functioning but also has incontinent bowel movements that require personal care) -moore care -lotion to plaques Wound care will continue monitoring.
--- NOTE | 2018-11-29 09:21 | NUR ---
PT ARRIVED FROM THE ER AT 0715, I SPENT 2 HOURS BATHING AND DOING WOUND CARE. PT IS ALERT AND ORIENTED, DENIES NEEDS OTHER THAN PAIN MEDICATION. WILL CALL DR SANDRA FOR ORDERS. CALL LIGHT IN REACH, WILL CONTINUE TO MONITOR AND FOLLOW PLAN OF CARE.
[2018-11-29 10:43] LABS: CKMB 0.5 U/L (0.0-3.6); CREATINE KINASE 22 UL (21-232)
[2018-11-29 10:44] LABS: TROPONIN-I < 0.017 ng/mL (0.000-0.060)
[2018-11-29 13:26] LABS: CKMB 0.5 U/L (0.0-3.6); CREATINE KINASE 19 UL (21-232)
[2018-11-29 13:27] LABS: TROPONIN-I < 0.017 ng/mL (0.000-0.060)
[2018-11-29 19:01] LABS: CREATINE KINASE 19 UL (21-232)
[2018-11-29 19:02] LABS: TROPONIN-I < 0.017 ng/mL (0.000-0.060)
[2018-11-29 19:23] LABS: CKMB 0.6 U/L (0.0-3.6)
--- NOTE | 2018-11-29 19:37 | NUR ---
RESUMING PATIENT CARE. PATIENT IS ALERT AND ORIENTED, RESTING COMFORTABLY IN BED. RESPIRATIONS ARE EVEN AND UNLABORED. NO S/S OF DISTRESS. NO C/O PAIN. PAIN MEDICATION GIVEN. CALL LIGHT WITHIN REACH. WILL CPOC.
[2018-11-30] VITALS: BP 124/68
[2018-11-30 04:00] VITALS: BP 124/65
[2018-11-30 07:32] LABS: ANION GAP 15.6 mmol/L (8-16); BILIRUBIN - TOTAL 0.22 mg/dL (0.2-1.3); CALCIUM 8.4 mg/dL (8.5-10.1); CARBON DIOXIDE 24.4 mmol/L (21.0-32.0); CREATININE - SERUM 1.2 mg/dL (0.6-1.3); PROTEIN - SERUM 7.1 g/dL (6.4-8.2)
[2018-11-30 07:39] LABS: EOSINOPHILS 3.9 % (0-7); HEMATOCRIT 30.9 % (42.0-54.0); HEMOGLOBIN 9.5 g/dL (13.5-17.5); IMMATURE GRANULOCYTES 1.3 % (0-5); MCH 24.9 pg (26.0-34.0); MCHC 30.7 g/dL (31.0-37.0); MCV 80.9 fL (80.0-100.0); MEAN PLATELET VOLUME 9.3 fL (7.4-10.4); MONOCYTES 12.3 % (2-11); NEUTROPHILS 64.5 % (40-80); PLATELET COUNT 562 10x3/uL (130-400); RBC 3.82 10x6/uL (4.20-6.10); RDW 17.5 % (11.5-14.5); WBC 10.8 10x3/uL (4.8-10.8)
--- NOTE | 2018-11-30 08:00 | NUR ---
RECIEVED BEDSIDE REPORT. AM ROUNDS COMPLETED. PT C/O OF A VERY SHARP PAIN ON HIS BACK AND SHOULDER AND THAT HE FINDS IT DIFFICULT TO BREATH. HOB ELEVATED, PLACE PT ON 2L O2. ADMINISTERED PRN DILUADID. PERFORMED EKG ON PT AND NOTIFIED PROVIDER. PT 79 SINUS ON TELE AT THIS TIME. ASSESED PT COLOSTOMY BAG. COLOSTOMY INTACT. CL IN REACH, BED IN LOW, SR UP X2.
[2018-11-30 08:27] VITALS: BP 118/72
--- NOTE | 2018-11-30 09:05 | NUR ---
REASSESED PT PAIN. PT STATES HE STILL FEEL A LITTE PAIN BUT ITS A LOT BETTER. HE ALSO STATES HE CAN BREATHE BETTER NOW. WILL CPOC.
[2018-11-30 11:50] VITALS: BP 121/69
--- NOTE | 2018-11-30 12:30 | NUR ---
FOUND PT COLOSTOMY BAG LEAKING ON THE SIDE. CHANGED COLOSTOMY BAG. PERFORMED COLOSTOMY CARE. PLACED IN A NEW COLOSTOMY BAG. ALSO PT GROIN DRESSING CHANGED. ASSESSED AND CLEANED THE GROIN AREA. PLACED 4X4 GAUZE, PLACED ABD PADS ON IT AND TAPED. IV DILUADID GIVEN PRIOR TO DRESSING CHANGE. WILL REASSESS PT. CL IN REACH, BED IN LOW, SR UP X2.
--- NOTE | 2018-11-30 14:28 | NUR ---
Rehab Note- Acute Inpatient Rehab prescreen order received. The patient has [facility] insurance and will require a PreAuth prior to an acute inpatient rehab stay. The patient is a new admit and undergoing an acute work up with pending consults. Also will need an OT Eval ordered for PreAuth process. Will continue to follow at this time. Thank you for this referral! Mar Bernal RN CLinical Liaison, [facility] Rehab
--- NOTE | 2018-11-30 15:02 | MORECARE ---
CASE MANAGEMENT DISCHARGE SUMMARY PATIENT: KUSUM SHAY UNIT: [id number] ADM DATE: 11/29/18 AGE: 58 : 62 SEX: M ROOM/BED: D.2132 AUTHOR: BRIAN HOLLINGSWORTH PHYSICIAN: REFERRING PHYSICIAN: GLENN SANDRA MD DATE OF SERVICE: 11/30/18 Discharge Plan Patient Name: KUSUM SHAY Facility: [facility]:[place] : 1960 Planned Disposition: Inpatient Rehab Anticipated Discharge Date: Discharge Date: Expected LOS: Initial Reviewer: [email or web address] Initial Review Date: 11/29/2018 Generated: 11/30/18 4:02 pm DCPIA - Discharge Planning Initial Assessment Updated by [email or web address]: Eddie Rainey on 11/30/18 3:01 pm * Is the patient Alert and Oriented? Yes * How many steps to enter\exit or inside your home? 6 W / RAIL * PCP DR. RODRIGUEZ (NOT YET SEEN) DR. IZQUIERDO SIGNING [facility] ORDERS UNTIL DR. RODRIGUEZ ADMITS NEW PATIENT * [facility] [place] * Preadmission Environment Home Alone * ADLs Independent * Equipment [facility] * Other Equipment NO MEDICAL EQUIPMENT PROVIDER PREFERENCE * List name and contact numbers for known caregivers / representatives who currently or will assist patient after discharge: NESHA KHALIL IN LAW, SUSANA CROWELL, * Verbal permission to speak to the caregivers and representatives has been obtained from the patient. N/A * Community resources currently utilized Home Health * Please name any agencies selected above. [facility], NURSING / WOUND CARE * Additional services required to return to the preadmission environment? Yes * Can the patient safely return to the preadmission environment? Yes * Has this patient been hospitalized within the prior 30 days at any hospital? Yes Patient Name: KUSUM SHAY Page [id number] at 1502 All edits/amendments must be made on the electronic document DICTATION DATE: 11/30/18 1502 TOOL CRIB ATTENDANT: ROSELYN 11/30/18 1502 RPT#: [id number] DC DATE: STATUS: ADM IN [facility] [address] [facility] [place] [address] END OF REPORT
--- NOTE | 2018-11-30 15:30 | MORECARE ---
CASE MANAGEMENT DISCHARGE SUMMARY PATIENT: KUSUM SHAY UNIT: [id number] ADM DATE: 11/29/18 AGE: 58 : 62 SEX: M ROOM/BED: D.2132 AUTHOR: BRIAN HOLLINGSWORTH PHYSICIAN: REFERRING PHYSICIAN: GLENN SANDRA MD DATE OF SERVICE: 11/30/18 Discharge Plan Patient Name: KUSUM SHAY Facility: [facility]:[place] : 1960 Planned Disposition: Inpatient Rehab Anticipated Discharge Date: Discharge Date: Expected LOS: Initial Reviewer: [email or web address] Initial Review Date: 11/29/2018 Generated: 11/30/18 4:30 pm DCPIA - Discharge Planning Initial Assessment Updated by [email or web address]: Eddie Rainey on 11/30/18 3:01 pm * Is the patient Alert and Oriented? Yes * How many steps to enter\exit or inside your home? 6 W / RAIL * PCP DR. RODRIGUEZ (NOT YET SEEN) DR. IZQUIERDO SIGNING [facility] ORDERS UNTIL DR. RODRIGUEZ ADMITS NEW PATIENT * Pharmacy [facility] [place] * Preadmission Environment Home Alone * ADLs Independent * Equipment [facility] Hospital Bed * Other Equipment NO MEDICAL EQUIPMENT PROVIDER PREFERENCE * List name and contact numbers for known caregivers / representatives who currently or will assist patient after discharge: NESHA KHALIL IN LAW, SUSANA CROWELL, * Verbal permission to speak to the caregivers and representatives has been obtained from the patient. N/A * Community resources currently utilized Home Health * Please name any agencies selected above. [facility], NURSING / WOUND CARE * Additional services required to return to the preadmission environment? Yes * Can the patient safely return to the preadmission environment? Yes * Has this patient been hospitalized within the prior 30 days at any hospital? Yes External Providers External Provider: Juan Francisco Stephens [place] Next Contact Date: 11/30/2018 Service Request Date: Service Type: Resolution: Reviewer: Comments: Last DP export: 11/30/18 2:02 pm Patient Name: KUSUM SHAY Page [phone] at 1530 All edits/amendments must be made on the electronic document DICTATION DATE: 11/30/18 153 ASSET RECOVERY SPECIALIST: ROSELYN 11/30/181529 RPT#: [id number] DC DATE: STATUS: ADM IN [facility] [address] [place] [address] END OF REPORT
--- NOTE | 2018-11-30 15:49 | MORECARE ---
CASE MANAGEMENT DISCHARGE SUMMARY PATIENT: KUSUM SHAY UNIT: [id number] ADM DATE: 11/29/18 AGE: 58 : 62 SEX: M ROOM/BED: D.2132 AUTHOR: EDEL,DOC PHYSICIAN: REFERRING PHYSICIAN: GLENN SANDRA MD DATE OF SERVICE: 11/30/18 Discharge Plan Patient Name: KUSUM SHAY Facility: [facility]:[place] : 1960 Planned Disposition: Inpatient Rehab Anticipated Discharge Date: Discharge Date: Expected LOS: Initial Reviewer: [email or web address] Initial Review Date: 11/29/2018 Generated: 11/30/18 4:49 pm Comments DCP- Discharge Planning Updated by [email or web address]: Eddie Rainey on 11/30/18 2:[address] Patient Name: KUSUM SHAY Admission Status: ER Accout number: [id number] Admission Date: 11-29-2018 : 1960 Admission Diagnosis:SHORTNESS OF BREATH Attending: GLENN SANDRA Current LOS: 1 Anticipated DC Date: Planned [facility] Primary Insurance: [facility] MEDICARE SOLUTIONS PLANNED EXTERNAL PROVIDER: BOBBY EDWARDS Discharge Planning Comments: CM RECEIVED CALL FROM KASHMIR OF [facility], , WHO INFORMED CM THAT [facility] AND WERE NOT DOING EVERY OTHER DAY DRESSING CHANGES WAS AGREED AT HOSPITAL DISCHARGE; [employer] IS NOT ABLE TO SEE PT FOR DAILY DRESSING CHANGES ANY LONGER AND COULD GO OUT EVERY OTHER DAY IF NEEDED. PT HAS NO TEACHABLE CAREGIVER IN THE HOME. CM RECEIVED ORDERS FOR INPATIENT REHAB PRESCREENING, MET WITH PT IN ROOM TO DISCUSS DISCHARGE PLANNING AND NEEDS. PT REPORTS LIVING AT HOME INDEPENDENTLY AND ALONE. PT HAS [facility] AND HOSPITAL BED WITH NO MEDICAL EQUIPMENT PROVIDER PREFERNCE. PT HAS [email or web address] FOR WOUND CARE AT HOME. CM DISCUSSED CALL FROM [email or web address] AND INABILITY TO DO DAILY DRESSING CHANGES AND THAT [facility]. CM DISCUSSED AVAILABILITY OF REHAB SERVICES AND MEDICAL EQUIPMENT. CM DISCUSSED AVAILABILITY OF LTACH. PT REPORTS INABILITY TO DO THE DRESSING CHANGES HIMSELF AT HOME AND IS CONCERNED ABOUT WOUND CARE AT THIS TIME. PT WOULD CONSIDER INPATIENT REHAB OR [facility] LONG COVERED BY INSURANCE. PT WOULD GO TO [facility] BUT WILL NOT CONSIDER GOING TO [place] FOR LTACH SERVICES. PT WILL NOT CONSIDER GOING TO A [facility] FACILITY AT ALL. CM PROVIDED HOSPITAL FINANCIAL SYSTEMS DIRECTOR AND CM CONTACT PHONE NUMBER. CM NOTIFIED SUDEEP MCGEE AND RECEIVED LTACH EVALUATION ORDER. CM SPOKE TO FERN OF INPATIENT REHAB AT [place], THEY WILL BE FOLLOWING AND WILL HAVE TO SUBMIT TO MANAGED MEDICARE FOR AUTHORIZATION WHEN ALL THERAPY EVALUATIONS ARE COMPLETED AND DOCUMENTED. CM CALLED [facility], , SPOKE TO VISHNU WHO INFORMED CM THAT PT HAD PREVIOUSLY BEEN REFERRED DURING PREVIOUS HOSPITAL STAY AND HAD BEEN APPROVED BY INSURANCE BUT CHOSE TO GO HOME WITH HOME HEALTH. CM PROVIDED REFERRAL INFORMATION AND NOTIFIED OF PT'S CHANGE OF MIND. CM FAXED REFERRAL TO [facility] AT [phone]. VISHNU INFORMED CM THAT THEY WILL NOT HAVE ANYTHING FROM INSURANCE PRIOR TO MONDAY AND ASKED CM TO FAX UPDATE ON MONDAY. CM WAITING INSURANCE AUTHORIZATION FOR CUSTODIAL ACUTE CARE SERVICES AT [facility]. CM TO FAX REFERRAL UPDATE TO [facility], ON 12-03-18. Patient Navigator: Eddie Rainey DCPIA - Discharge Planning Initial Assessment Updated by [email or web address]: Eddie Rainey on 11/30/18 3:01 pm * Is the patient Alert and Oriented? Yes * How many steps to enter\exit or inside your home? 6 W / RAIL * PCP DR. RODRIGUEZ (NOT YET SEEN) DR. IZQUIERDO SIGNING [facility] ORDERS UNTIL DR. RODRIGUEZ ADMITS NEW PATIENT * Pharmacy [facility] IN [place] * Preadmission Environment Home Alone * ADLs Independent * Equipment [facility] Hospital Bed * Other Equipment NO MEDICAL EQUIPMENT PROVIDER PREFERENCE * List name and contact numbers for known caregivers / representatives who currently or will assist patient after discharge: NESHA KHALIL IN LAW, SUSANA CROWELL, * Verbal permission to speak to the caregivers and representatives has been obtained from the patient. N/A * Community resources currently utilized Home Health * Please name any agencies selected above. [facility], NURSING / WOUND CARE * Additional services required to return to the preadmission environment? Yes * Can the patient safely return to the preadmission environment? Yes * Has this patient been hospitalized within the prior 30 days at any hospital? Yes Last DP export: 11/30/18 2:30 pm Patient Name: KUSUM SHAY Page [id number] at 1549 All edits/amendments must be made on the electronic document DICTATION DATE: 11/30/181548 SAFETY ATTENDANT: ROSELYN 11/30/181548 RPT#: [id number] DC DATE: STATUS: ADM IN [facility] [address] [place] [address] END OF REPORT
--- NOTE | 2018-11-30 17:40 | NUR ---
OT NOTE: PT COMPLETED BED MOB AND SITTING AT EOB WITH SBA. PT COMPLETED HYGIENE TASK WITH ANGELA Chau. THANK YOU, ULICES RUDD
[2018-11-30 17:54] VITALS: BP 120/68
[2018-11-30 20:00] VITALS: BP 124/80
--- NOTE | 2018-11-30 20:08 | NUR ---
RESUMING PATIENT CARE. PATIENT IS ALERT AND ORIENTED, RESTING COMFORTABLY IN BED. RESPIRATIONS ARE EVEN AND UNLABORED. NO S/S OF DISTRESS. NO C/O PAIN. CALL LIGHT WITHIN REACH. WILL CPOC.
[2018-12-01] VITALS (7 sets, daily range): BP systolic 126–147; BP diastolic 73–83
--- NOTE | 2018-12-01 01:01 | NUR ---
PATIENT IS RESTING COMFORTABLY IN BED. RESPIRATIONS ARE EVEN AND UNLABORED. NO S/S OF DISTRESS. NO C/O PAIN. CALL LIGHT WITHIN REACH. WILL CPOC.
--- NOTE | 2018-12-01 10:01 | NUR ---
PATIENT IS AWAKE AND ALERT. ASSISSTED HIM TO EMPTY HIS COLOSTOMY BAG. THERE IS A STRONG ODOR. PATIENT REPORTS THAT HIS DRESSING WAS CHANGED ON THE WOUND IN HIS GROIN YESTERDAY AROUND 1400. THE DRESSING IS NOT SATURATED AT THIS TIME.
--- NOTE | 2018-12-01 15:16 | NUR ---
I have reviewed this patient and I concur with the Shift Assessment completed by the Licensed Practical Nurse today this shift.
--- NOTE | 2018-12-01 16:19 | NUR ---
FULL DRESSING CHANGE COMPLETED. WOUND IS DEEP AND EXTENDS FROM THE FRONT OF HIS LEFT HIP, FOLLOWS THE CREASE OF HIS GROIN, AND HIS LEFT TESTICAL IS REMOVED. ALL THE WAY TO HIS RECTUM. REMOVED OLD DRESSING CLEANED WITH WOUND CLEANSER, AND REPACKED AND DRESSED ORDERED. PATIENT TOLERATED.
--- NOTE | 2018-12-01 20:00 | NUR ---
INITIAL ROUNDS AND ASSESSMENT COMPLETED. PT HAS BEEN AMBULATING IN THE HALLWAY. COLOSTOMY IN PLACE. LIRIANO PATENT TO DRAIN BAG WITH YELLOW URINE. SALINE MARIO TO LFA. SR PER TELEMETRY. PT HAS AN ANGRY AFFECT. UPSET OVER THE LENGTH OF TIME HE HAS BEEN IN THE HOSPITAL. PT ALSO UPSET ABOUT WANTING TO HAVE A SHOWER. EXPLAINED THAT UNTIL THERE IS NOT A WOUND ISSUE, IT WILL HAVE TO BE A SPONGE BATH. HE IS IN AGREEMENT AND IT WILL BE DONE THIS SHIFT.
--- NOTE | 2018-12-01 21:00 | NUR ---
PT WAS GIVEN A COMPLETE BED BATH PER FINANCIAL DIRECTOR. COLOSTOMY LEAKING. EMPTIED AND REMOVED OLD COLOSTOMY APPARATUS AND APPLIED NEW APPLIANCE. AFTER BATH AND CARE, PT IN BETTER SPIRITS.
[2018-12-02 03:53] VITALS: BP 124/80
[2018-12-02 06:05] LABS: BASOPHILS 1.3 % (0-2); HEMATOCRIT 32.3 % (42.0-54.0); IMMATURE GRANULOCYTES 3.2 % (0-5); LYMPHOCYTES 26.7 % (15-50); MCH 25.1 pg (26.0-34.0); MEAN PLATELET VOLUME 9.7 fL (7.4-10.4); MONOCYTES 10.8 % (2-11); PLATELET COUNT 569 10x3/uL (130-400); RBC 3.99 10x6/uL (4.20-6.10); RDW 17.5 % (11.5-14.5)
[2018-12-02 06:21] LABS: ANION GAP 10.6 mmol/L (8-16); CALCIUM 8.4 mg/dL (8.5-10.1); CARBON DIOXIDE 26.7 mmol/L (21.0-32.0); CREATININE - SERUM 1.2 mg/dL (0.6-1.3); POTASSIUM - SERUM 4.3 mmol/L (3.5-5.1)
[2018-12-02 09:41] VITALS: BP 114/80
[2018-12-02 11:45] VITALS: BP 117/73
--- NOTE | 2018-12-02 13:30 | NUR ---
ALERT AND ORIENTED X4. LT GROIN TO LT HIP DRESSING CHANGED ORDERED. WOUND BED RED. FREE FROM BLEEDING. LIRIANO DRAINING BY GRAVITY SECURED TO INNER RT THIGH DRAINING ON SIDE OF BED. SINUS RHYTHM ON TELEMETRY. ABDOMINAL INCISION HEALING. COLOSTOMY BAG EMPTIED 400mL FOUL ODOR REDDISH BROWN LIQUID STOOL. CONTINUE PAIN MANAGEMENT. CONTINUE PLAN OF CARE AND SAFETY PRECAUTIONS.
[2018-12-02 15:58] VITALS: BP 126/86
[2018-12-02 19:55] VITALS: BP 119/75
--- NOTE | 2018-12-02 20:04 | NUR ---
INITIAL ROUNDS AND ASSESSMENT COMPLETED. PT RESTING. NO DISTRESS. MONITOR AND CPOC.
--- NOTE | 2018-12-02 21:18 | NUR ---
BEDTIME MEDS GIVEN. REQUESTED PAIN PILL GIVEN FOR PAIN TO GROIN AND HEADACHE 05/11. PT IRRITABLE. CURRENTLY HAS VISITOR AT BEDSIDE.
[2018-12-02 23:50] VITALS: BP 145/82
[2018-12-03 03:45] VITALS: BP 146/85
[2018-12-03 05:53] LABS: BASOPHILS 1.3 % (0-2); HEMATOCRIT 31.5 % (42.0-54.0); HEMOGLOBIN 9.8 g/dL (13.5-17.5); IMMATURE GRANULOCYTES 5.2 % (0-5); LYMPHOCYTES 26.7 % (15-50); MCH 25.1 pg (26.0-34.0); MCHC 31.1 g/dL (31.0-37.0); MCV 80.8 fL (80.0-100.0); MEAN PLATELET VOLUME 9.4 fL (7.4-10.4); MONOCYTES 14.3 % (2-11); NEUTROPHILS 41.5 % (40-80); PLATELET COUNT 604 10x3/uL (130-400); RDW 17.6 % (11.5-14.5); WBC 9.5 10x3/uL (4.8-10.8)
[2018-12-03 06:29] LABS: ANION GAP 14.2 mmol/L (8-16); CALCIUM 8.4 mg/dL (8.5-10.1); CARBON DIOXIDE 27.2 mmol/L (21.0-32.0); CREATININE - SERUM 1.3 mg/dL (0.6-1.3); POTASSIUM - SERUM 4.4 mmol/L (3.5-5.1)
[2018-12-03 08:51] VITALS: BP 121/78
--- NOTE | 2018-12-03 10:46 | MORECARE ---
CASE MANAGEMENT DISCHARGE SUMMARY PATIENT: KUSUM SHAY UNIT: [id number] ADM DATE: 11/29/18 AGE: 58 : 62 SEX: M ROOM/BED: D.2132 AUTHOR: EDEL,DOC PHYSICIAN: REFERRING PHYSICIAN: GLENN SANDRA MD DATE OF SERVICE: 12/03/18 Discharge Plan Patient Name: KUSUM SHAY Facility: [facility]:[place] : 1960 Planned Disposition: Inpatient Rehab Anticipated Discharge Date: Discharge Date: Expected LOS: Initial Reviewer: [email or web address] Initial Review Date: 11/29/2018 Generated: 12/03/18 11:45 am Comments DCP- Discharge Planning Updated by [email or web address]: Eddie Rainey on 12/03/18 9:[address] Patient Name: KUSUM SHAY Encounter No: [id number] : 1960 Primary Insurance: [facility] MEDICARE SOLUTIONS Anticipated DC Date: Planned Disposition: [facility]IREMENT [facility]UTE [facility] Provider: BOBBY EDWARDS Discharge Planning Comments: CM RECEIVED CALL FROM [facility], , WHO ASKED FOR REFERRAL UPDATE TO BE FAXED. CM FAXED REFERRAL UPDATE TO [facility] AT [phone]. CM WAITING INSURANCE AUTHORIZATION FOR ECONOMIC HISTORIAN ACUTE CARE SERVICES AT [facility]. CM TO FAX REFERRAL UPDATE TO [facility], ON 12-03-18. Auctioneer Art: Eddie Rainey DCP- Discharge Planning Updated by [email or web address]: Eddie Rainey on 11/30/18 2:[address] Patient Name: KUSUM SHAY Admission Status: ER Accout number: [id number] Admission Date: 11-29-2018 : 1960 Admission Diagnosis:SHORTNESS OF BREATH Attending: GLENN SANDRA Current LOS: 1 Anticipated DC Date: Planned Disposition: [facility] Primary Insurance: [facility] MEDICARE SOLUTIONS PLANNED EXTERNAL PROVIDER: BOBBY EDWARDS Discharge Planning Comments: CM RECEIVED CALL FROM KASHMIR [employer] [facility], , WHO INFORMED CM THAT [facility] REFUSED TO SEE PT AND WERE NOT DOING EVERY OTHER DAY DRESSING CHANGES WAS AGREED AT HOSPITAL DISCHARGE; [facility] IS NOT ABLE TO SEE PT FOR DAILY DRESSING CHANGES ANY LONGER AND COULD GO OUT EVERY OTHER DAY IF NEEDED. PT HAS NO TEACHABLE CAREGIVER IN THE HOME. CM RECEIVED ORDERS FOR INPATIENT REHAB PRESCREENING, MET WITH PT IN ROOM TO DISCUSS DISCHARGE PLANNING AND NEEDS. PT REPORTS LIVING AT HOME INDEPENDENTLY AND ALONE. PT HAS CANE AND HOSPITAL BED WITH NO MEDICAL EQUIPMENT PROVIDER PREFERNCE. PT HAS [employer] FOR WOUND CARE AT HOME. CM DISCUSSED CALL FROM [facility] AND INABILITY TO DO DAILY DRESSING CHANGES AND [facility]. CM DISCUSSED AVAILABILITY OF REHAB SERVICES AND MEDICAL EQUIPMENT. CM DISCUSSED AVAILABILITY OF LTACH. PT REPORTS INABILITY TO DO THE DRESSING CHANGES HIMSELF AT HOME AND IS CONCERNED ABOUT WOUND CARE AT THIS TIME. PT WOULD CONSIDER INPATIENT REHAB OR RETIREMENT ACUTE CARE LONG COVERED BY INSURANCE. PT WOULD GO TO [facility] BUT WILL NOT CONSIDER GOING TO [place] FOR LTACH SERVICES. PT WILL NOT CONSIDER GOING TO A [facility] FACILITY AT ALL. CM PROVIDED HOSPITAL UNMANNED EQUIPMENT OPERATOR AND CM CONTACT PHONE NUMBER. CM NOTIFIED SUDEEP MCGEE AND RECEIVED LTACH EVALUATION ORDER. CM SPOKE TO FERN OF INPATIENT REHAB AT [place], THEY WILL BE FOLLOWING AND WILL HAVE TO SUBMIT TO MANAGED MEDICARE FOR AUTHORIZATION WHEN ALL THERAPY EVALUATIONS ARE COMPLETED AND DOCUMENTED. CM CALLED [facility], , SPOKE TO VISHNU WHO INFORMED CM THAT PT HAD PREVIOUSLY BEEN REFERRED DURING PREVIOUS HOSPITAL STAY AND HAD BEEN APPROVED BY INSURANCE BUT CHOSE TO GO HOME WITH HOME HEALTH. CM PROVIDED REFERRAL INFORMATION AND NOTIFIED OF PT'S CHANGE OF MIND. CM FAXED REFERRAL TO [facility] AT [phone]. VISHNU INFORMED CM THAT THEY WILL NOT HAVE ANYTHING FROM INSURANCE PRIOR TO MONDAY AND ASKED CM TO FAX UPDATE ON MONDAY. CM WAITING INSURANCE AUTHORIZATION FOR ECONOMIC HISTORIAN ACUTE CARE SERVICES AT [facility]. CM TO FAX REFERRAL UPDATE TO [facility], ON 12-03-18. Auctioneer Art: Eddie Rainey DCPIA - Discharge Planning Initial Assessment Updated by [email or web address]: Eddie Rainey on 11/30/18 3:01 pm * Is the patient Alert and Oriented? Yes * How many steps to enter\exit or inside your home? 6 W / RAIL * PCP DR. RODRIGUEZ (NOT YET SEEN) DR. IZQUIERDO SIGNING [facility] ORDERS UNTIL DR. RODRIGUEZ ADMITS NEW PATIENT * Pharmacy [facility] IN [place] * Preadmission Environment Home Alone * ADLs Independent * Equipment [facility] Hospital Bed * Other Equipment NO MEDICAL EQUIPMENT PROVIDER PREFERENCE * List name and contact numbers for known caregivers / representatives who currently or will assist patient after discharge: NESHA KHALIL IN LAW, SUSANA CROWELL, * Verbal permission to speak to the caregivers and representatives has been obtained from the patient. N/A * Community resources currently utilized Home Health * Please name any agencies selected above. [facility], NURSING / WOUND CARE * Additional services required to return to the preadmission environment? Yes * Can the patient safely return to the preadmission environment? Yes * Has this patient been hospitalized within the prior 30 days at any hospital? Yes Last DP export: 11/30/18 2:49 pm Patient Name: KUSUM SHAY Page [phone] at 1046 All edits/amendments must be made on the electronic document DICTATION DATE: 12/03/181044 NETBACKUP ENGINEER: ROSELYN 12/03/18 1045 RPT#: [id number] DC DATE: STATUS: ADM IN [facility] [address] [place] [address] END OF REPORT
--- NOTE | 2018-12-03 11:50 | NUR ---
Rehab Note- Pending possible LTAC placement at this time. WIll continue ot follow. Mar Bernal RN Clinical Liaison, [facility] Rehab
[2018-12-03 12:33] VITALS: BP 139/70
--- NOTE | 2018-12-03 14:11 | NUR ---
AGREE WITH COW TESTER ASSESSMENT
--- NOTE | 2018-12-03 15:14 | NUR ---
Nutrition follow-up:: Wt: 275# Diet: Low sodium PO intake 100% of most meals labs reviewed colostomy PO good at this time RDN following.
--- NOTE | 2018-12-03 15:19 | NUR ---
Rehab Note- LTAC not to take patient per CLOVIS, reviewed medical receord- the patient is noted to have ambulated 750' with physical therapy. The patient does not have the physical need for acute inpatient rehab for functional mobility at this time. Spoke with CLOVIS Cronin. Thank you for this referral! Mar Bernal RN CLinical Liaison, [facility] Rehab
--- NOTE | 2018-12-03 15:29 | MORECARE ---
CASE MANAGEMENT DISCHARGE SUMMARY PATIENT: KUSUM SHAY UNIT: [id number] ADM DATE: 11/29/18 AGE: 58 : 62 SEX: M ROOM/BED: D.2132 AUTHOR: DEEL,DOC PHYSICIAN: REFERRING PHYSICIAN: GLENN SANDRA MD DATE OF SERVICE: 12/03/18 Discharge Plan Patient Name: KUSUM SHAY Facility: [facility]:[place] : 1960 Planned Disposition: Inpatient Rehab Anticipated Discharge Date: Discharge Date: Expected LOS: Initial Reviewer: [id number] Initial Review Date: 11/29/2018 Generated: 12/03/18 4:29 pm Comments DCP- Discharge Planning Updated by [id number]: Eddie Rainey on 12/03/18 2:[address] Patient Name: KUSUM SHAY Encounter No: [id number] : 1960 Primary Insurance: [employer] Anticipated DC Date: Planned Disposition: [facility] F[facility] External Planned Provider: [facility], MEDICARE SKILLED BED DCP follow-up note: CM RECEIVED CALL FROM [facility] WHO ADVISED THEY WILL NOT ACCEPT PT. CM SPOKE TO FERN OF INPATIENT REHAB WHO INFORMED CM THAT PT IS TOO HIGH FUNCTIONING FOR INPATIENT REHAB. CM SPOKE TO PT IN ROOM, DISCUSSED DISCHARGE PLANNING AND OPTIONS. PT CANNOT DO WOUND CARE HIMSELF AND HAS NO TEACHABLE BULK SAUSAGE CASING TIER OFF AND HOME HEALTH WILL NOT DO DAILY WOUND CARE. PT WOULD LIKE TO EXPLORE [facility] FOR SKILLED CARE LONG IT IS COVERED BY HIS INSURANCE. CHOICE LISTING PROVIDED, PT SIGNED CHOICE FOR 1. [facility] 2. [place] 3. [facility] 4. [facility]. CM CALLED [facility], , SPOKE TO JACQUELINE WHO REPORTS THEY CAN CONTACT INSURANCE TO ENSURE SERVICES WOULD BE COVERED. CM FAXED REFERRAL TO [facility] AT [phone]. CM WAITING INSURANCE AUTHORIZATION FOR SKILLED SERVICES WELL ADMISSION DETERMINATION FROM [facility]. Eddie Rainey, CASE MANAGEMENT DCP- Discharge Planning Updated by [id number]: Eddie Rainey on 12/03/18 9:[address] Patient Name: KUSUM SHAY Encounter No: [id number] : 1960 Primary Insurance: [employer] Anticipated DC Date: Planned Disposition: [facility] Provider: BOBBY EDWARDS Discharge Planning Comments: CM RECEIVED CALL FROM VISHNU OF [facility], , WHO ASKED FOR REFERRAL UPDATE TO BE FAXED. CM FAXED REFERRAL UPDATE TO [facility] AT [phone]. CM WAITING INSURANCE AUTHORIZATION FOR SENIOR LIVING ACUTE CARE SERVICES AT [facility]. CM TO FAX REFERRAL UPDATE TO [facility], ON 12-03-18. Manager Distribution: Eddie Rainey DCP- Discharge Planning Updated by [id number]: Eddie Rainey on 11/30/18 2:[address] Patient Name: KUSUM SHAY Admission Status: ER Accout number: [id number] Admission Date: 11-29-2018 : 1960 Admission Diagnosis:SHORTNESS OF BREATH Attending: GLENN SANDRA Current LOS: 1 Anticipated DC Date: Planned Disposition: [facility] Primary Insurance: [employer] PLANNED EXTERNAL PROVIDER: BOBBY EDWARDS Discharge Planning Comments: CM RECEIVED CALL FROM KASHMIR OF [employer], , WHO INFORMED CM THAT [facility] REFUSED TO SEE PT AND WERE NOT DOING EVERY OTHER DAY DRESSING CHANGES WAS AGREED AT HOSPITAL DISCHARGE; [employer] IS NOT ABLE TO SEE PT FOR DAILY DRESSING CHANGES ANY LONGER AND COULD GO OUT EVERY OTHER DAY IF NEEDED. PT HAS NO TEACHABLE CAREGIVER IN THE HOME. CM RECEIVED ORDERS FOR INPATIENT REHAB PRESCREENING, MET WITH PT IN ROOM TO DISCUSS DISCHARGE PLANNING AND NEEDS. PT REPORTS LIVING AT HOME INDEPENDENTLY AND ALONE. PT HAS CANE AND HOSPITAL BED WITH NO MEDICAL EQUIPMENT PROVIDER PREFERNCE. PT HAS [employer] FOR WOUND CARE AT HOME. CM DISCUSSED CALL FROM [employer] AND INABILITY TO DO DAILY DRESSING CHANGES AND [facility]. CM DISCUSSED AVAILABILITY OF REHAB SERVICES AND MEDICAL EQUIPMENT. CM DISCUSSED AVAILABILITY OF LTACH. PT REPORTS INABILITY TO DO THE DRESSING CHANGES HIMSELF AT HOME AND IS CONCERNED ABOUT WOUND CARE AT THIS TIME. PT WOULD CONSIDER INPATIENT REHAB OR SENIOR LIVING ACUTE CARE LONG COVERED BY INSURANCE. PT WOULD GO TO [facility] BUT WILL NOT CONSIDER GOING TO [place] FOR LTACH SERVICES. PT WILL NOT CONSIDER GOING TO A [facility] FACILITY AT ALL. CM PROVIDED HOSPITAL TRANSIT SPECIALIST AND CM CONTACT PHONE NUMBER. CM NOTIFIED SUDEEP MCGEE AND RECEIVED LTACH EVALUATION ORDER. CM SPOKE TO FERN OF INPATIENT REHAB AT [place], THEY WILL BE FOLLOWING AND WILL HAVE TO SUBMIT TO MANAGED MEDICARE FOR AUTHORIZATION WHEN ALL THERAPY EVALUATIONS ARE COMPLETED AND DOCUMENTED. CM CALLED [facility], , SPOKE TO VISHNU WHO INFORMED CM THAT PT HAD PREVIOUSLY BEEN REFERRED DURING PREVIOUS HOSPITAL STAY AND HAD BEEN APPROVED BY INSURANCE BUT CHOSE TO GO HOME WITH HOME HEALTH. CM PROVIDED REFERRAL INFORMATION AND NOTIFIED OF PT'S CHANGE OF MIND. CM FAXED REFERRAL TO [facility] AT [phone]. VISHNU INFORMED CM THAT THEY WILL NOT HAVE ANYTHING FROM INSURANCE PRIOR TO MONDAY AND ASKED CM TO FAX UPDATE ON MONDAY. CM WAITING INSURANCE AUTHORIZATION FOR COMMERCIAL ACCOUNT OFFICER ACUTE CARE SERVICES AT [facility]. CM TO FAX REFERRAL UPDATE TO [facility], ON 12-03-18. Manager Distribution: Eddie Rainey DCPIA - Discharge Planning Initial Assessment Updated by [id number]: Eddie Rainey on 11/30/18 3:01 pm * Is the patient Alert and Oriented? Yes * How many steps to enter\exit or inside your home? 6 W / RAIL * PCP DR. RODRIGUEZ (NOT YET SEEN) DR. IZQUIERDO SIGNING [facility] ORDERS UNTIL DR. RODRIGUEZ ADMITS NEW PATIENT * Pharmacy [facility] IN [place] * Preadmission Environment Home Alone * ADLs Independent * Equipment Cane Hospital Bed * Other Equipment NO MEDICAL EQUIPMENT PROVIDER PREFERENCE * List name and contact numbers for known caregivers / representatives who currently or will assist patient after discharge: NESHA KHALIL IN LAW, SUSANA CROWELL, * Verbal permission to speak to the caregivers and representatives has been obtained from the patient. N/A * Community resources currently utilized Home Health * Please name any agencies selected above. [facility], NURSING / WOUND CARE * Additional services required to return to the preadmission environment? Yes * Can the patient safely return to the preadmission environment? Yes * Has this patient been hospitalized within the prior 30 days at any hospital? Yes Coverage Notice Reviewer: [id number] - Eddie Estradawell Notice Issued Date-Time: 12/03/2018 14:55 Notice Type: Patient Choice Letter Notice Delivered To: Patient Relationship to Patient: Processor Helper Name: Delivery Method: HAND - Hand Delivered Alexandra Days: Prior Verbal Notification: Recipient Understood Notice: Yes Recipient Signature: Yes Med Rec Note Co-signed by Attending: Coverage Notice Comment: 1. ZEKE 2. JERO WILLS 3. LY 4. MYRON HAYWARD Last DP export: 12/03/18 9:45 am Patient Name: KUSUM SHAY Page [id number] at 1529 All edits/amendments must be made on the electronic document DICTATION DATE: 12/03/188 SUPPORT SERVICES SPECIALIST: ROSELYN 12/03/181527 RPT#: [id number] DC DATE: STATUS: ADM IN [facility] [address] [place] [address] END OF REPORT
--- NOTE | 2018-12-03 15:37 | MORECARE ---
CASE MANAGEMENT DISCHARGE SUMMARY PATIENT: KUSUM SHAY UNIT: [id number] ADM DATE: 11/29/18 AGE: 58 : 62 SEX: M ROOM/BED: D.2132 AUTHOR: EDEL,DOC PHYSICIAN: REFERRING PHYSICIAN: GLENN SANDRA MD DATE OF SERVICE: 12/03/18 Discharge Plan Patient Name: KUSUM SHAY Facility: [facility]:[place] : 1960 Planned Disposition: Jail Facility Anticipated Discharge Date: 12/04/18 Discharge Date: Expected LOS: 5 Initial Reviewer: [id number] Initial Review Date: 11/29/2018 Generated: 12/03/18 4:37 pm Comments DCP- Discharge Planning Updated by [email or web address]: Eddie Rainey on 12/03/18 2:[address] Patient Name: KUSUM SHAY Encounter No: [id number] : 1960 Primary Insurance: [facility] [employer] SOLUTIONS Anticipated DC Date: Planned Disposition: CUSTODIAL FACILITY External Planned Provider: [facility], MEDICARE SKILLED BED DCP follow-up note: CM RECEIVED CALL FROM [facility] WHO ADVISED THEY WILL NOT ACCEPT PT. CM SPOKE TO FERN OF INPATIENT REHAB WHO INFORMED CM THAT PT IS TOO HIGH FUNCTIONING FOR INPATIENT REHAB. CM SPOKE TO PT IN ROOM, DISCUSSED DISCHARGE PLANNING AND OPTIONS. PT CANNOT DO WOUND CARE HIMSELF AND HAS NO TEACHABLE NANNY CAREGIVER AND HOME HEALTH WILL NOT DO DAILY WOUND CARE. PT WOULD LIKE TO EXPLORE CUSTODIAL FOR SKILLED CARE LONG IT IS COVERED BY HIS INSURANCE. CHOICE LISTING PROVIDED, PT SIGNED CHOICE FOR 1. [facility] 2. [place] 3. [facility] 4. [facility]. CM CALLED [facility], , SPOKE TO JACQUELINE WHO REPORTS THEY CAN CONTACT INSURANCE TO ENSURE SERVICES WOULD BE COVERED. CM FAXED REFERRAL TO [facility] AT [phone]. CM WAITING INSURANCE AUTHORIZATION FOR SKILLED SERVICES WELL ADMISSION DETERMINATION FROM [facility]. Eddie Rainey, CASE MANAGEMENT DCP- Discharge Planning Updated by [id number]: Eddie Rainey on 12/03/18 9:[address] Patient Name: KUSUM SHAY Encounter No: [id number] : 1960 Primary Insurance: [facility] [employer] SOLUTIONS Anticipated DC Date: Planned [facility] Provider: BOBBY EDWARDS Discharge Planning Comments: CM RECEIVED CALL FROM VISHNU OF [facility], , WHO ASKED FOR REFERRAL UPDATE TO BE FAXED. CM FAXED REFERRAL UPDATE TO [facility] AT [phone]. CM WAITING INSURANCE AUTHORIZATION FOR [facility] ACUTE CARE SERVICES AT [facility]. CM TO FAX REFERRAL UPDATE TO [facility], ON 12-03-18. Life Insurance Specialist: Eddie Rainey DCP- Discharge Planning Updated by [id number]: Eddie Rainey on 11/30/18 2:[address] Patient Name: KUSUM SHAY Admission Status: ER Accout number: [id number] Admission Date: 11-29-2018 : 1960 Admission Diagnosis:SHORTNESS OF BREATH Attending: GLENN SANDRA Current LOS: 1 Anticipated DC Date: Planned Disposition: [facility]IAL [facility] Primary Insurance: [facility] [employer] SOLUTIONS PLANNED EXTERNAL PROVIDER: BOBBY EDWARDS Discharge Planning Comments: CM RECEIVED CALL FROM KASHMIR OF [employer], , WHO INFORMED CM THAT [facility] REF[facility] AND WERE NOT DOING EVERY OTHER DAY DRESSING CHANGES WAS AGREED AT HOSPITAL DISCHARGE; [facility] IS NOT ABLE TO SEE PT FOR DAILY DRESSING CHANGES ANY LONGER AND COULD GO OUT EVERY OTHER DAY IF NEEDED. PT HAS NO TEACHABLE CAREGIVER IN THE HOME. CM RECEIVED ORDERS FOR INPATIENT REHAB PRESCREENING, MET WITH PT IN ROOM TO DISCUSS DISCHARGE PLANNING AND NEEDS. PT REPORTS LIVING AT HOME INDEPENDENTLY AND ALONE. PT HAS CANE AND HOSPITAL BED WITH NO MEDICAL EQUIPMENT PROVIDER PREFERNCE. PT HAS [facility] FOR WOUND CARE AT HOME. CM DISCUSSED CALL FROM [facility] AND INABILITY TO DO DAILY DRESSING CHANGES AND THAT [facility] REFUSED TO ACCEPT PT. CM DISCUSSED AVAILABILITY OF REHAB SERVICES AND MEDICAL EQUIPMENT. CM DISCUSSED AVAILABILITY OF LTACH. PT REPORTS INABILITY TO DO THE DRESSING CHANGES HIMSELF AT HOME AND IS CONCERNED ABOUT WOUND CARE AT THIS TIME. PT WOULD CONSIDER INPATIENT REHAB OR [facility] LONG COVERED BY INSURANCE. PT WOULD GO TO [facility] BUT WILL NOT CONSIDER GOING TO [place] FOR LTACH SERVICES. PT WILL NOT CONSIDER GOING TO A CUSTODIAL FACILITY AT ALL. CM PROVIDED HOSPITAL CARDIOLOGY RN AND CM CONTACT PHONE NUMBER. CM NOTIFIED SUDEEP MCGEE AND RECEIVED LTACH EVALUATION ORDER. CM SPOKE TO FERN OF INPATIENT REHAB AT [place], THEY WILL BE FOLLOWING AND WILL HAVE TO SUBMIT TO MANAGED MEDICARE FOR AUTHORIZATION WHEN ALL THERAPY EVALUATIONS ARE COMPLETED AND DOCUMENTED. CM CALLED [facility], , SPOKE TO VISHNU WHO INFORMED CM THAT PT HAD PREVIOUSLY BEEN REFERRED DURING PREVIOUS HOSPITAL STAY AND HAD BEEN APPROVED BY INSURANCE BUT CHOSE TO GO HOME WITH HOME HEALTH. CM PROVIDED REFERRAL INFORMATION AND NOTIFIED OF PT'S CHANGE OF MIND. CM FAXED REFERRAL TO [facility] AT [phone]. VISHNU INFORMED CM THAT THEY WILL NOT HAVE ANYTHING FROM INSURANCE PRIOR TO MONDAY AND ASKED CM TO FAX UPDATE ON MONDAY. CM WAITING INSURANCE AUTHORIZATION FOR [facility] ACUTE CARE SERVICES AT [facility]. CM TO FAX REFERRAL UPDATE TO [facility], ON 12-03-18. Life Insurance Specialist: Eddie Rainey DCPIA - Discharge Planning Initial Assessment Updated by [id number]: Eddie Rainey on 11/30/18 3:01 pm * Is the patient Alert and Oriented? Yes * How many steps to enter\exit or inside your home? 6 W / RAIL * PCP DR. RODRIGUEZ (NOT YET SEEN) DR. IZQUIERDO SIGNING [facility] ORDERS UNTIL DR. RODRIGUEZ ADMITS NEW PATIENT * Pharmacy [facility] IN [place] * Preadmission Environment Home Alone * ADLs Independent * Equipment Cane Hospital Bed * Other Equipment NO MEDICAL EQUIPMENT PROVIDER PREFERENCE * List name and contact numbers for known caregivers / representatives who currently or will assist patient after discharge: NESHA KHALIL IN LAW, SUSANA CROWELL, * Verbal permission to speak to the caregivers and representatives has been obtained from the patient. N/A * Community resources currently utilized Home Health * Please name any agencies selected above. [facility], NURSING / WOUND CARE * Additional services required to return to the preadmission environment? Yes * Can the patient safely return to the preadmission environment? Yes * Has this patient been hospitalized within the prior 30 days at any hospital? Yes Coverage Notice Reviewer: [id number] Chandrika Rainey Notice Issued Date-Time: 12/03/2018 14:55 Notice Type: Patient Choice Letter Notice Delivered To: Patient Relationship to Patient: Whizzer Operator Name: Delivery Method: HAND - Hand Delivered Alexandra Days: Prior Verbal Notification: Recipient Understood Notice: Yes Recipient Signature: Yes Med Rec Note Co-signed by Attending: Coverage Notice Comment: 1. ZEKE 2. JERO WILLS 3. LY [facility]. [facility] Last DP export: 12/03/18 2:29 pm Patient Name: KUSUM SHAY Page [id number] at 1537 All edits/amendments must be made on the electronic document DICTATION DATE: 12/03/18 1536 BANQUET SUPERVISOR: ROSELYN 12/03/18 1536 RPT#: [id number] DC DATE: STATUS: ADM IN [facility] [address] [place] [address] END OF REPORT
[2018-12-03 17:33] VITALS: BP 127/86
--- NOTE | 2018-12-03 19:31 | NUR ---
INTRODUCED SELF TO PATIENT, PATIENT HAD SISTER AND FRIEND AT BEDSIDE. PATIENT RESP EVEN AND UNLABORED. / PAIN, PATIENT STATED HE DIDN'T WANT ANYTHING FOR PAIN RIGHT NOW. NO FURTHER NEEDS AT THIS TIME.
[2018-12-03 20:00] VITALS: BP 123/65
[2018-12-04] VITALS: BP 126/72
[2018-12-04 04:00] VITALS: BP 131/82
--- NOTE | 2018-12-04 05:35 | NUR ---
RESIDENT UP AND WALKING AROUND UNIT, WENT TO GET COFFEE.
[2018-12-04 05:46] LABS: ANION GAP 12.4 mmol/L (8-16); CALCIUM 8.4 mg/dL (8.5-10.1); CARBON DIOXIDE 28.1 mmol/L (21.0-32.0); CREATININE - SERUM 1.4 mg/dL (0.6-1.3); POTASSIUM - SERUM 4.5 mmol/L (3.5-5.1)
[2018-12-04 06:11] LABS: HEMATOCRIT 32.7 % (42.0-54.0); HEMOGLOBIN 10.1 g/dL (13.5-17.5); MCH 24.9 pg (26.0-34.0); MCHC 30.9 g/dL (31.0-37.0); MCV 80.7 fL (80.0-100.0); MEAN PLATELET VOLUME 9.3 fL (7.4-10.4); PLATELET COUNT 622 10x3/uL (130-400); RBC 4.05 10x6/uL (4.20-6.10); RDW 17.5 % (11.5-14.5); WBC 11.8 10x3/uL (4.8-10.8)
[2018-12-04 07:49] LABS: ANISOCYTOSIS OCC; EOSINOPHILS 10 % (0-7); LYMPHOCYTES 21 % (15-50); MONOCYTES 10 % (2-11); NEUTROPHILS 56 % (40-80); PLATELET ESTIMATE INCREASED
--- NOTE | 2018-12-04 08:35 | NUR ---
PT ALERT X 4. BREATH SOUNDS CLEAR BILAT. COLOSTOMY TO RIGHT LOWER QUADRANT. IV TO LEFT AC, SALINE LOCKED. TELEMETRY IN PLACE. DRESSING TO LEFT GROIN AROUND TO HIP, CLEAN DRY AND INTACT. PT REPORTING PAIN OF 8/10, NOT WANTING MEDICATION YET. BREAKFAST IN ROOM. BED LOW, CALL LIGHT IN REACH. NO OTHER NEEDS AT THIS TIME.
--- NOTE | 2018-12-04 12:33 | NUR ---
CONSULT CALLED TO DR. WOLFE. HE ORDERED A SCROTAL US.
--- NOTE | 2018-12-04 13:28 | MORECARE ---
CASE MANAGEMENT DISCHARGE SUMMARY PATIENT: KUSUM HSAY UNIT: [id number] ADM DATE: 11/29/18 AGE: 58 : 62 SEX: M ROOM/BED: D.2132 AUTHOR: EDEL,DOC PHYSICIAN: REFERRING PHYSICIAN: GLENN SANDRA MD DATE OF SERVICE: 12/04/18 Discharge Plan Patient Name: KUSUM SHAY Facility: [facility]:[place] : 1960 Planned Disposition: Care Home Facility Anticipated Discharge Date: 12/04/18 Discharge Date: Expected LOS: 5 Initial Reviewer: [id number] Initial Review Date: 11/29/2018 Generated: 12/04/18 2:28 pm Comments DCP- Discharge Planning Updated by [id number]: Eddie Rainey on 12/04/18 12:[address] Patient Name: KUSUM SHAY Encounter No: [id number] : 1960 Primary Insurance: [facility] MEDICARE SOLUTIONS Anticipated DC Date: 12-04-2018 Planned Disposition: Care Home Facility External Planned Provider: [facility], MEDICARE SKILLED BED DCP follow-up note: CM FAXED REFERRAL [place] TO [facility] AT [phone]. CM WAITING INSURANCE AUTHORIZATION FOR SKILLED SERVICES WELL ADMISSION DETERMINATION FROM [facility]. EVELIO Hackett DCP- Discharge Planning Updated by [id number]: Eddie Rainey on 12/03/18 2:[address] Patient Name: KUSUM SHAY Encounter No: [id number] : 1960 Primary Insurance: [facility] [employer] SOLUTIONS Anticipated DC Date: Planned Disposition: CARE HOME FACILITY External Planned Provider: [facility], MEDICARE SKILLED BED DCP follow-up note: CM RECEIVED CALL FROM [facility] WHO ADVISED THEY WILL NOT ACCEPT PT. CM SPOKE TO FERN OF INPATIENT REHAB WHO INFORMED CM THAT PT IS TOO HIGH FUNCTIONING FOR INPATIENT REHAB. CM SPOKE TO PT IN ROOM, DISCUSSED DISCHARGE PLANNING AND OPTIONS. PT CANNOT DO WOUND CARE HIMSELF AND HAS NO TEACHABLE SAMPLE MOUNTER AND HOME HEALTH WILL NOT DO DAILY WOUND CARE. PT WOULD LIKE TO EXPLORE CARE HOME FOR SKILLED CARE LONG IT IS COVERED BY HIS INSURANCE. CHOICE LISTING PROVIDED, PT SIGNED CHOICE FOR 1. [facility] 2. [place] 3. [place] [facility]. [facility]. CM CALLED [facility], , SPOKE TO JACQUELINE WHO REPORTS THEY CAN CONTACT INSURANCE TO ENSURE SERVICES WOULD BE COVERED. CM FAXED REFERRAL TO [facility] AT [phone]. CM WAITING INSURANCE AUTHORIZATION FOR SKILLED SERVICES WELL ADMISSION DETERMINATION FROM [facility]. Eddie Rainey, CASE MANAGEMENT DCP- Discharge Planning Updated by [id number]: Eddie Rainey on 12/03/18 9:[address] Patient Name: KUSUM SHAY Encounter No: [id number] : 1960 Primary Insurance: [facility] MED[employer] SOLUTIONS Anticipated DC Date: Planned Disposition: [facility] ACUTE [facility] Provider: BOBBY EDWARDS Discharge Planning Comments: CM RECEIVED CALL FROM [facility], , WHO ASKED FOR REFERRAL UPDATE TO BE FAXED. CM FAXED REFERRAL UPDATE TO [facility] AT [phone]. CM WAITING INSURANCE AUTHORIZATION FOR INTERMEDIATE ACUTE CARE SERVICES AT [facility]. CM TO FAX REFERRAL UPDATE TO [facility], ON 12-03-18. Worm Sorter: Eddie Rainey DCP- Discharge Planning Updated by [email or web address]: Eddie Rainey on 11/30/18 2:[address] Patient Name: KUSUM SHAY Admission Status: ER Accout number: [id number] Admission Date: 11-29-2018 : 1960 Admission Diagnosis:SHORTNESS OF BREATH Attending: GLENN SANDRA Current LOS: 1 Anticipated DC Date: Planned Disposition: [facility] Primary Insurance: [facility] [employer] SOLUTIONS PLANNED EXTERNAL PROVIDER: BOBBY EDWARDS Discharge Planning Comments: CM RECEIVED CALL FROM KASHMIR [facility], , WHO INFORMED CM THAT [facility] REFUSED TO SEE PT AND WERE NOT DOING EVERY OTHER DAY DRESSING CHANGES WAS AGREED AT HOSPITAL DISCHARGE; [employer] IS NOT ABLE TO SEE PT FOR DAILY DRESSING CHANGES ANY LONGER AND COULD GO OUT EVERY OTHER DAY IF NEEDED. PT HAS NO TEACHABLE CAREGIVER IN THE HOME. CM RECEIVED ORDERS FOR INPATIENT REHAB PRESCREENING, MET WITH PT IN ROOM TO DISCUSS DISCHARGE PLANNING AND NEEDS. PT REPORTS LIVING AT HOME INDEPENDENTLY AND ALONE. PT HAS CANE AND HOSPITAL BED WITH NO MEDICAL EQUIPMENT PROVIDER PREFERNCE. PT HAS [facility] FOR WOUND CARE AT HOME. CM DISCUSSED CALL FROM [facility] AND INABILITY TO DO DAILY DRESSING CHANGES AND THAT [facility] REFUSED TO ACCEPT PT. CM DISCUSSED AVAILABILITY OF REHAB SERVICES AND MEDICAL EQUIPMENT. CM DISCUSSED AVAILABILITY OF LTACH. PT REPORTS INABILITY TO DO THE DRESSING CHANGES HIMSELF AT HOME AND IS CONCERNED ABOUT WOUND CARE AT THIS TIME. PT WOULD CONSIDER INPATIENT REHAB OR BLOW MACHINE TENDER [facility] ACUTE CARE LONG COVERED BY INSURANCE. PT WOULD GO TO [facility] BUT WILL NOT CONSIDER GOING TO [place] FOR LTACH SERVICES. PT WILL NOT CONSIDER GOING TO A CARE HOME FACILITY AT ALL. CM PROVIDED HOSPITAL PROJECT SCHEDULER AND CM CONTACT PHONE NUMBER. CM NOTIFIED SUDEEP MCGEE AND RECEIVED LTACH EVALUATION ORDER. CM SPOKE TO FERN OF INPATIENT REHAB AT [place], THEY WILL BE FOLLOWING AND WILL HAVE TO SUBMIT TO MANAGED MEDICARE FOR AUTHORIZATION WHEN ALL THERAPY EVALUATIONS ARE COMPLETED AND DOCUMENTED. CM CALLED [facility], , SPOKE TO VISHNU WHO INFORMED CM THAT PT HAD PREVIOUSLY BEEN REFERRED DURING PREVIOUS HOSPITAL STAY AND HAD BEEN APPROVED BY INSURANCE BUT CHOSE TO GO HOME WITH HOME HEALTH. CM PROVIDED REFERRAL INFORMATION AND NOTIFIED OF PT'S CHANGE OF MIND. CM FAXED REFERRAL TO [facility] AT [phone]. VISHNU INFORMED CM THAT THEY WILL NOT HAVE ANYTHING FROM INSURANCE PRIOR TO MONDAY AND ASKED CM TO FAX UPDATE ON MONDAY. CM WAITING INSURANCE AUTHORIZATION FOR BLOW MACHINE TENDER STARCH SPRAYING ACUTE CARE SERVICES AT [facility]. CM TO FAX REFERRAL UPDATE TO [facility], ON 12-03-18. Worm Sorter: Eddie Rainey DCPIA - Discharge Planning Initial Assessment Updated by [id number]: Eddie Rainey on 11/30/18 3:01 pm * Is the patient Alert and Oriented? Yes * How many steps to enter\exit or inside your home? 6 W / RAIL * PCP DR. RODRIGUEZ (NOT YET SEEN) DR. IZQUIERDO SIGNING [facility] ORDERS UNTIL DR. RODRIGUEZ ADMITS NEW PATIENT * Pharmacy [facility] [place] * Preadmission Environment Home Alone * ADLs Independent * Equipment Cane Hospital Bed * Other Equipment NO MEDICAL EQUIPMENT PROVIDER PREFERENCE * List name and contact numbers for known caregivers / representatives who currently or will assist patient after discharge: NESHA KHALIL IN LAW, SUSANA CROWELL, * Verbal permission to speak to the caregivers and representatives has been obtained from the patient. N/A * Community resources currently utilized Home Health * Please name any agencies selected above. [facility], NURSING / WOUND CARE * Additional services required to return to the preadmission environment? Yes * Can the patient safely return to the preadmission environment? Yes * Has this patient been hospitalized within the prior 30 days at any hospital? Yes External Providers External Provider: [facility] Next Contact Date: 12/04/2018 Service Request Date: Service Type: Resolution: Reviewer: Comments: Coverage Notice Reviewer: [id number] - Eddie Rainey Notice Issued Date-Time: 12/03/2018 14:55 Notice Type: Patient Choice Letter Notice Delivered To: Patient Relationship to Patient: Lead Medical Technologist Name: Delivery Method: HAND - Hand Delivered Alexandra Days: Prior Verbal Notification: Recipient Understood Notice: Yes Recipient Signature: Yes Med Rec Note Co-signed by Attending: Coverage Notice Comment: 1. [facility]KE 2. JERO WILLS 3. LY 4. [facility] Last DP export: 12/03/18 2:37 pm Patient Name: KUSUM SHAY Page [phone] at 1328 All edits/amendments must be made on the electronic document DICTATION DATE: 12/04/18 1328 CHARGING BOARD OPERATOR: ROSELYN 12/04/18 1328 RPT#: [id number] DC DATE: STATUS: ADM IN [facility] [address] [place] [address] END OF REPORT
--- NOTE | 2018-12-04 14:37 | NUR ---
OT NOTE: MET WITH CM REGARDING DC PLANS. PT REPORTING INCREASED PAIN TODAY. REMAINS ABLE TO PERFORM BED MOB WITH VERY MINIMAL ASSIST, HOWEVER, REPORTS PAIN IN R TESTICLE 9/10. ROMARIO MARTINS, OTR/L
--- NOTE | 2018-12-04 16:36 | MORECARE ---
CASE MANAGEMENT DISCHARGE SUMMARY PATIENT: KUSUM SHAY UNIT: [id number] ADM DATE: 11/29/18 AGE: 58 : 62 SEX: M ROOM/BED: D.2132 AUTHOR: EDEL,DOC PHYSICIAN: REFERRING PHYSICIAN: GLENN SANDRA MD DATE OF SERVICE: 12/04/18 Discharge Plan Patient Name: KUSUM SHAY Facility: [facility]:[place] : 1960 Planned Disposition: Mcfp Facility Anticipated Discharge Date: 12/04/18 Discharge Date: Expected LOS: 5 Initial Reviewer: [id number] Initial Review Date: 11/29/2018 Generated: 12/04/18 5:35 pm Comments DCP- Discharge Planning Updated by [id number]: Vadim Pulliam on 12/04/18 3:[address] Patient Name: KUSUM SHAY Encounter No: [id number] : 1960 Primary Insurance: [facility] MEDICARE SOLUTIONS Anticipated DC Date: Planned Disposition: CUSTODIAL FACILITY External Planned Provider: [facility], MEDICARE SKILLED BED DCP follow-up note: CM RECEIVED CALL FROM VISHNU [facility] WHO ADVISED THEY WILL NOT ACCEPT PT. CM SPOKE TO FERN OF INPATIENT REHAB WHO INFORMED CM THAT PT IS TOO HIGH FUNCTIONING FOR INPATIENT REHAB. CM SPOKE TO PT IN ROOM, DISCUSSED DISCHARGE PLANNING AND OPTIONS. PT CANNOT DO WOUND CARE HIMSELF AND HAS NO TEACHABLE BEEF BREAKER AND HOME HEALTH WILL NOT DO DAILY WOUND CARE. PT WOULD LIKE TO EXPLORE CUSTODIAL FOR SKILLED CARE LONG IT IS COVERED BY HIS INSURANCE. CHOICE LISTING PROVIDED, PT SIGNED CHOICE FOR 1. [place] 2. [place] 3. [facility] 4. [facility]. CM CALLED [facility], , SPOKE TO JACQUELINE WHO REPORTS THEY CAN CONTACT INSURANCE TO ENSURE SERVICES WOULD BE COVERED. CM FAXED REFERRAL TO [facility] AT [phone]. CM WAITING INSURANCE AUTHORIZATION FOR SKILLED SERVICES WELL ADMISSION DETERMINATION FROM [facility]. Vadim Pulliam, CASE MANAGEMENT Appended by Vadim Pulliam on 12/04/2018 16:27 DEPENDENCY PROGRAM DIRECTOR: CM RECEIVED CALL FROM PONCHO OF [facility], THEY WILL NOT ACCEPT, RECOMMENDED HOME WITH HOME HEALTH. CM PLEADED PT'S CASE HE HAS NO ONE AT HOME TO ASSIST, CANNOT DO THE WOUND CARE HIMSELF AND HOME HEALTH WILL NOT COME OUT DAILY. ZEKE'S ANSWER CONTINUES TO BE NO. CM CALLED AND SPOKE TO CLARE AT [facility] AND CLARE REPORTED THAT PT WILL HAVE A COPAY AND THAT PT WILL NOT KNOW UNTIL AFTER THE GROUP HOME STAY OF EXACTLY HOW MUCH HE OWES. PT HAS ALREADY INFORMED CM THAT HE WILL NOT CONSIDER GOING SOMEWHERE WITH COPAY. CM CALLED [facility], , SPOKE TO EUGENIA WHO WILL CHECK WITH ADMISSIONS STAFF AND INSURANCE COMPANY TO SEE IF THEY COULD ADMIT FOR WOUND CARE ONLY. CM FAXED FACE SHEET TO ASHANTI AT [phone], CM WAITING DETERMINATION ON [facility]MISSION AND [facility] VADIM PULLIAM CASE MANAGEMENT DCP- Discharge Planning Updated by [id number]: Vadim Pulliam on 12/04/18 12:[address] Patient Name: KUSUM SHAY Encounter No: [id number] : 1960 Primary Insurance: [facility] MEDICARE SOLUTIONS Anticipated DC Date: 12-04-2018 Planned Disposition: Mcfp Facility External Planned Provider: [facility], MEDICARE SKILLED BED DCP follow-up note: CM FAXED REFERRAL UDPATE TO [facility] AT [phone]. CM WAITING INSURANCE AUTHORIZATION FOR SKILLED SERVICES WELL [facility] EVELIO Hackett DCP- Discharge Planning Updated by [id number]: Vadim Pulliam on 12/03/18 9:[address] Patient Name: KUSUM SHAY Encounter No: [id number] : 1960 Primary Insurance: [facility] MEDICARE SOLUTIONS Anticipated DC Date: Planned Disposition[facility] Provider: BOBBY EDWARDS Discharge Planning Comments: CM RECEIVED CALL FROM VISHNU OF [facility], , WHO ASKED FOR REFERRAL UPDATE TO BE FAXED. CM FAXED REFERRAL UPDATE TO LARA GONSALEZ AT [phone]. CM WAITING INSURANCE AUTHORIZATION FOR [facility] ACUTE CARE SERVICES AT [facility]. CM TO FAX REFERRAL UPDATE TO [facility], ON 12-03-18. Clinical Research Assistant: Vadim Pulliam DCP- Discharge Planning Updated by [id number]: Vadim Pulliam on 11/30/18 2:[address] Patient Name: KUSUM SHAY Admission Status: ER Accout number: [id number] Admission Date: 11-29-2018 : 1960 Admission Diagnosis:SHORTNESS OF BREATH Attending: GLENN SANDRA Current LOS: 1 Anticipated DC Date: Planned Disposition: [facility] Primary Insurance: [facility] MEDICARE SOLUTIONS PLANNED EXTERNAL PROVIDER: LARA GONSALEZ [place] Discharge Planning Comments: CM RECEIVED CALL FROM KASHMIR OF [facility], , WHO INFORMED CM THAT [facility] REFUSED TO SEE PT AND WERE NOT DOING EVERY OTHER DAY DRESSING CHANGES WAS AGREED AT HOSPITAL DISCHARGE; [employer] IS NOT ABLE TO SEE PT FOR DAILY DRESSING CHANGES ANY LONGER AND COULD GO OUT EVERY OTHER DAY IF NEEDED. PT HAS NO TEACHABLE CAREGIVER IN THE HOME. CM RECEIVED ORDERS FOR INPATIENT REHAB PRESCREENING, MET WITH PT IN ROOM TO DISCUSS DISCHARGE PLANNING AND NEEDS. PT REPORTS LIVING AT HOME INDEPENDENTLY AND ALONE. PT HAS CANE AND HOSPITAL BED WITH NO MEDICAL EQUIPMENT PROVIDER PREFERNCE. PT HAS [facility] FOR WOUND CARE AT HOME. CM DISCUSSED CALL FROM [employer] [facility] AND INABILITY TO DO DAILY DRESSING CHANGES AND THAT [facility] REFUSED TO ACCEPT PT. CM DISCUSSED AVAILABILITY OF REHAB SERVICES AND MEDICAL EQUIPMENT. CM DISCUSSED AVAILABILITY OF LTACH. PT REPORTS INABILITY TO DO THE DRESSING CHANGES HIMSELF AT HOME AND IS CONCERNED ABOUT WOUND CARE AT THIS TIME. PT WOULD CONSIDER INPATIENT REHAB OR [facility] ACUTE CARE LONG COVERED BY INSURANCE. PT WOULD GO TO [facility] BUT WILL NOT CONSIDER GOING TO [place] FOR LTACH SERVICES. PT WILL NOT CONSIDER GOING TO A CUSTODIAL FACILITY AT ALL. CM PROVIDED HOSPITAL DECK MATE AND CM CONTACT PHONE NUMBER. CM NOTIFIED SUDEEP MCGEE AND RECEIVED LTACH EVALUATION ORDER. CM SPOKE TO FERN OF INPATIENT REH[facility] AT [place], THEY WILL BE FOLLOWING AND WILL HAVE TO SUBMIT TO MANAGED MEDICARE FOR AUTHORIZATION WHEN ALL THERAPY EVALUATIONS ARE COMPLETED AND DOCUMENTED. CM CALLED [facility], , SPOKE TO VISHNU WHO INFORMED CM THAT PT HAD PREVIOUSLY BEEN REFERRED DURING PREVIOUS HOSPITAL STAY AND HAD BEEN APPROVED BY INSURANCE BUT CHOSE TO GO HOME WITH HOME HEALTH. CM PROVIDED REFERRAL INFORMATION AND NOTIFIED OF PT'S CHANGE OF MIND. CM FAXED REFERRAL TO LARA GONSALEZ AT [phone]. VISHNU INFORMED CM THAT THEY WILL NOT HAVE ANYTHING FROM INSURANCE PRIOR TO MONDAY AND ASKED CM TO FAX UPDATE ON MONDAY. CM WAITING INSURANCE AUTHORIZATION FOR [facility] AT [facility]. CM TO FAX REFERRAL UPDATE TO [facility], ON 12-03-18. Clinical Research Assistant: Vadim Pulliam DCPIA - Discharge Planning Initial Assessment Updated by [id number]: Vadim Pulliam on 11/30/18 3:01 pm * Is the patient Alert and Oriented? Yes * How many steps to enter\exit or inside your home? 6 W / RAIL * PCP DR. RODRIGUEZ (NOT YET SEEN) DR. IZQUIERDO SIGNING [facility] ORDERS UNTIL DR. RODRIGUEZ ADMITS NEW PATIENT * Pharmacy [facility] [place] * Preadmission Environment Home Alone * ADLs Independent * Equipment Cane Hospital Bed * Other Equipment NO MEDICAL EQUIPMENT PROVIDER PREFERENCE * List name and contact numbers for known caregivers / representatives who currently or will assist patient after discharge: NESHA KHALIL IN LAW, SUSANA CROWELL, * Verbal permission to speak to the caregivers and representatives has been obtained from the patient. N/A * Community resources currently utilized Home Health * Please name any agencies selected above. [facility], NURSING / WOUND CARE * Additional services required to return to the preadmission environment? Yes * Can the patient safely return to the preadmission environment? Yes * Has this patient been hospitalized within the prior 30 days at any hospital? Yes External Providers [facility] Next Contact Date: 12/04/2018 Service Request Date: Service Type: Resolution: Reviewer: Comments: Coverage Notice Reviewer: [id number] - Vadim Pulliam Notice Issued Date-Time: 12/03/2018 14:55 Notice Type: Patient Choice Letter Notice Delivered To: Patient Relationship to Patient: One Piece Expansion Maker Hand Name: Delivery Method: HAND - Hand Delivered Alexandra Days: Prior Verbal Notification: Recipient Understood Notice: Yes Recipient Signature: Yes Med Rec Note Co-signed by Attending: Coverage Notice Comment: 1. ZEKE 2. JERO WILLS 3. LY 4. CANABIMAEL SANTAMARIAS Last DP export: 12/04/18 12:28 pm Patient Name: KUSUM SHAY Page [id number] at 1636 All edits/amendments must be made on the electronic document DICTATION DATE: 12/04/18 163 EMPLOYMENT ADJUDICATOR: ROSELYN 12/04/18 163 RPT#: [id number] DC DATE: STATUS: ADM IN [facility] [address] [place] [address] END OF REPORT
[2018-12-04 18:48] VITALS: BP 119/73
[2018-12-04 20:00] VITALS: BP 112/65
--- NOTE | 2018-12-04 20:20 | NUR ---
INITIAL ASSESSMENT COMPLETE - PT A/O X4, UP WALKING AROUND NURSES STATION W/O ISSUES. LIRIANO DRAINING CLEAR YELLOW URINE. L AC PIV SL, PATENT, C/D/I. VSS ON ROOM AIR, SHOWING SR VIA CARDIAC MONITORING. L ABD DRESSING C/D/I. STATES PAIN 9/10, ADMINISTERED PRESCRIBED ANALGESIC PER MD ORDER. NO OTHER NEEDS AT THIS TIME. CL IN REACH, SR UP X2, BED IN LOWEST POSITION.
--- NOTE | 2018-12-05 03:32 | NUR ---
RESUMING PT CARE - RESTING IN BED WITH EYES CLOSED. RR EVEN AND UL, NO S/S OF DISTRESS. CL IN REACH, NO NEEDS NOTED AT THIS TIME. WCTM AND FOLLOW POC.
[2018-12-05 04:00] VITALS: BP 105/76
[2018-12-05 06:45] LABS: BASOPHILS 1.5 % (0-2); EOSINOPHILS 9.8 % (0-7); HEMATOCRIT 33.1 % (42.0-54.0); HEMOGLOBIN 10.3 g/dL (13.5-17.5); IMMATURE GRANULOCYTES 3.8 % (0-5); MCH 25.4 pg (26.0-34.0); MCHC 31.1 g/dL (31.0-37.0); MCV 81.7 fL (80.0-100.0); MEAN PLATELET VOLUME 9.2 fL (7.4-10.4); MONOCYTES 11.6 % (2-11); NEUTROPHILS 44.3 % (40-80); PLATELET COUNT 583 10x3/uL (130-400); RBC 4.05 10x6/uL (4.20-6.10); RDW 17.5 % (11.5-14.5); WBC 10.4 10x3/uL (4.8-10.8)
[2018-12-05 07:09] LABS: ANION GAP 13.1 mmol/L (8-16); CALCIUM 8.4 mg/dL (8.5-10.1); CARBON DIOXIDE 28.5 mmol/L (21.0-32.0); CREATININE - SERUM 1.3 mg/dL (0.6-1.3); POTASSIUM - SERUM 4.6 mmol/L (3.5-5.1)
--- NOTE | 2018-12-05 07:30 | NUR ---
A/A/OX4. DENIES ANY NEEDS AT PRESENT TIME. DRESSING TO LOWER ABD AND PERINEAL AREA C/D/I. LIRIANO PATENT AND DRAINING LIGHT REJI COLORED URINE. NO REQUESTS VOICED. ASSESSMENT COMPLETED. BED IN LOW POSITION AND LOCKED WITH SIDERAILS UP X 2 AND CALL LIGHT IN REACH. WILL CONTINUE POC.
--- NOTE | 2018-12-05 08:15 | MORECARE ---
CASE MANAGEMENT DISCHARGE SUMMARY PATIENT: KUSUM SHAY UNIT: [id number] ADM DATE: 11/29/18 AGE: 58 : 62 SEX: M ROOM/BED: D.2132 AUTHOR: EDEL,DOC PHYSICIAN: REFERRING PHYSICIAN: GLENN SANDRA MD DATE OF SERVICE: 12/05/18 Discharge Plan Patient Name: KUSUM SHAY Facility: [facility]:[place] : 1960 Planned Disposition: Halfway Facility Anticipated Discharge Date: 12/04/18 Discharge Date: Expected LOS: 5 Initial Reviewer: [id number] Initial Review Date: 11/29/2018 Generated: 12/05/18 9:15 am Comments DCP- Discharge Planning Updated by [id number]: Vadim Pulliam on 12/04/18 3:[address] Patient Name: KUSUM SHAY Encounter No: [id number] : 1960 Primary Insurance: [facility] MEDICARE SOLUTIONS Anticipated DC Date: Planned Disposition: DETENTION FACILITY External Planned Provider: [facility], MEDICARE SKILLED BED DCP follow-up note: CM RECEIVED CALL FROM VISHNU [facility] WHO ADVISED THEY WILL NOT ACCEPT PT. CM SPOKE TO FERN OF INPATIENT REHAB WHO INFORMED CM THAT PT IS TOO HIGH FUNCTIONING FOR INPATIENT REHAB. CM SPOKE TO PT IN ROOM, DISCUSSED DISCHARGE PLANNING AND OPTIONS. PT CANNOT DO WOUND CARE HIMSELF AND HAS NO TEACHABLE PHARMACEUTICAL OFFICER AND HOME HEALTH WILL NOT DO DAILY WOUND CARE. PT WOULD LIKE TO EXPLORE DETENTION FOR SKILLED CARE LONG IT IS COVERED BY HIS INSURANCE. CHOICE LISTING PROVIDED, PT SIGNED CHOICE FOR 1. [place] 2. [facility]. [facility]. CM CALLED [facility], , SPOKE TO JACQUELINE WHO REPORTS THEY CAN CONTACT INSURANCE TO ENSURE SERVICES WOULD BE COVERED. CM FAXED REFERRAL TO [facility] AT [phone]. CM WAITING INSURANCE AUTHORIZATION FOR SKILLED SERVICES WELL ADMISSION DETERMINATION FROM [facility]. Vadim Pulliam, CASE MANAGEMENT Appended by Vadim Pulliam on 12/04/2018 16:27 BEEF RIBBER: CM RECEIVED CALL FROM PONCHO OF [facility], THEY WILL NOT ACCEPT, RECOMMENDED HOME WITH HOME HEALTH. CM PLEADED PT'S CASE HE HAS NO ONE AT HOME TO ASSIST, CANNOT DO THE WOUND CARE HIMSELF AND HOME HEALTH WILL NOT COME OUT DAILY. ZEKE'S ANSWER CONTINUES TO BE NO. CM CALLED AND SPOKE TO CL[facility] AND CLARE REPORTED THAT PT WILL HAVE A COPAY AND THAT PT WILL NOT KNOW UNTIL AFTER THE HALFWAY STAY OF EXACTLY HOW MUCH HE OWES. PT HAS ALREADY INFORMED CM THAT HE WILL NOT CONSIDER GOING SOMEWHERE WITH COPAY. CM CALLED [facility], , SPOKE TO EUGENIA WHO WILL CHECK WITH ADMISSIONS STAFF AND INSURANCE COMPANY TO SEE IF THEY COULD ADMIT FOR WOUND CARE ONLY. CM FAXED FACE SHEET TO ASHANTI AT [phone], CM WAITING DETERMIN[facility] ON [facility] VADIM PULLIAM CASE MANAGEMENT DCP- Discharge Planning Updated by [id number]: Vadim Pulliam on 12/04/18 12:[address] Patient Name: KUSUM SHAY Encounter No: [id number] : 1960 Primary Insurance: [facility] MEDICARE SOLUTIONS Anticipated DC Date: 12-04-2018 Planned Disposition: Halfway Facility External Planned Provider: [facility], MEDICARE SKILLED BED DCP follow-up note: CM FAXED REFERRAL UDPATE TO [facility] AT [phone]. CM WAITING INSURANCE AUTHORIZATION FOR SKILLED SERVICES WELL [facility] EVELIO Hackett DCP- Discharge Planning Updated by [id number]: Vadim Pulliam on 12/03/18 9:[address] Patient Name: KUSUM SHAY Encounter No: [id number] : 1960 Primary Insurance: [facility] MEDICARE SOLUTIONS Anticipated DC Date: Planned Disposition: ASSISTED ACUTE CARE HOSPITAL Provider: BOBBY EDWARDS Discharge Planning Comments: CM RECEIVED CALL FROM VISHNU OF [facility], , WHO ASKED FOR REFERRAL UPDATE TO BE FAXED. CM FAXED REFERRAL UPDATE TO LARA GONSALEZ AT [phone]. CM WAITING INSURANCE AUTHORIZATION FOR [facility]DER ACUTE CARE SERVICES AT [facility]. CM TO FAX REFERRAL UPDATE TO [facility], ON 12-03-18. Wildlife Biology Internship: Vadim Pulliam DCP- Discharge Planning Updated by [id number]: Vadim Pulliam on 11/30/18 2:[address] Patient Name: KUSUM SHAY Admission Status: ER Accout number: [id number] Admission Date: 11-29-2018 : 1960 Admission Diagnosis:SHORTNESS OF BREATH Attending: GLENN SANDRA Current LOS: 1 Anticipated DC Date: Planned Disposition: [facility] Primary Insurance: [facility] MEDICARE SOLUTIONS PLANNED EXTERNAL PROVIDER: LARA GONSALEZ [place] Discharge Planning Comments: CM RECEIVED CALL FROM KASHMIR OF [employer], , WHO INFORMED CM THAT [facility] REFUSED TO SEE PT AND WERE NOT DOING EVERY OTHER DAY DRESSING CHANGES WAS AGREED AT HOSPITAL DISCHARGE; [employer] IS NOT ABLE TO SEE PT FOR DAILY DRESSING CHANGES ANY LONGER AND COULD GO OUT EVERY OTHER DAY IF NEEDED. PT HAS NO TEACHABLE CAREGIVER IN THE HOME. CM RECEIVED ORDERS FOR INPATIENT REHAB PRESCREENING, MET WITH PT IN ROOM TO DISCUSS DISCHARGE PLANNING AND NEEDS. PT REPORTS LIVING AT HOME INDEPENDENTLY AND ALONE. PT HAS CANE AND HOSPITAL BED WITH NO MEDICAL EQUIPMENT PROVIDER PREFERNCE. PT HAS [employer] FOR WOUND CARE AT HOME. CM DISCUSSED CALL FROM [facility] AND INABILITY TO DO DAILY DRESSING CHANGES AND THAT [facility] REFUSED TO ACCEPT PT. CM DISCUSSED AVAILABILITY OF REHAB SERVICES AND MEDICAL EQUIPMENT. CM DISCUSSED AVAILABILITY OF LTACH. PT REPORTS INABILITY TO DO THE DRESSING CHANGES HIMSELF AT HOME AND IS CONCERNED ABOUT WOUND CARE AT THIS TIME. PT WOULD CONSIDER INPATIENT REHAB OR [facility] BUILDER ACUTE CARE LONG COVERED BY INSURANCE. PT WOULD GO TO [facility] BUT WILL NOT CONSIDER GOING TO [place] FOR LTACH SERVICES. PT WILL NOT CONSIDER GOING TO A DETENTION FACILITY AT ALL. CM PROVIDED HOSPITAL PATTERN KEEPER AND CM CONTACT PHONE NUMBER. CM NOTIFIED SUDEEP MCGEE AND RECEIVED LTACH EVALUATION ORDER. CM SPOKE TO FERN OF INPATIENT REHAB AT [place], THEY WILL BE FOLLOWING AND WILL HAVE TO SUBMIT TO MANAGED MEDICARE FOR AUTHORIZATION WHEN ALL THERAPY EVALUATIONS ARE COMPLETED AND DOCUMENTED. CM CALLED [facility], , SPOKE TO VISHNU WHO INFORMED CM THAT PT HAD PREVIOUSLY BEEN REFERRED DURING PREVIOUS HOSPITAL STAY AND HAD BEEN APPROVED BY INSURANCE BUT CHOSE TO GO HOME WITH HOME HEALTH. CM PROVIDED REFERRAL INFORMATION AND NOTIFIED OF PT'S CHANGE OF MIND. CM FAXED REFERRAL TO LARA GONSALEZ AT [phone]. VISHNU INFORMED CM THAT THEY WILL NOT HAVE ANYTHING FROM INSURANCE PRIOR TO MONDAY AND ASKED CM TO FAX UPDATE ON MONDAY. CM WAITING INSURANCE AUTHORIZATION FOR ASSISTED ACUTE CARE SERVICES AT [facility]. CM TO FAX REFERRAL UPDATE TO [facility], [place] 12-03-18. Wildlife Biology Internship: Vadim Pulliam DCPIA - Discharge Planning Initial Assessment Updated by [id number]: Vadim Pulliam on 11/30/18 3:01 pm * Is the patient Alert and Oriented? Yes * How many steps to enter\exit or inside your home? 6 W / RAIL * PCP DR. RODRIGUEZ (NOT YET SEEN) DR. IZQUIERDO SIGNING [facility] ORDERS UNTIL DR. RODRIGUEZ ADMITS NEW PATIENT * Pharmacy [facility] [place] * Preadmission Environment Home Alone * ADLs Independent * Equipment Cane Hospital Bed * Other Equipment NO MEDICAL EQUIPMENT PROVIDER PREFERENCE * List name and contact numbers for known caregivers / representatives who currently or will assist patient after discharge: NESHA KHALIL IN LAW, SUSANA CROWELL, * Verbal permission to speak to the caregivers and representatives has been obtained from the patient. N/A * Community resources currently utilized Home Health * Please name any agencies selected above. [facility], NURSING / WOUND CARE * Additional services required to return to the preadmission environment? Yes * Can the patient safely return to the preadmission environment? Yes * Has this patient been hospitalized within the prior 30 days at any hospital? Yes Coverage Notice Reviewer: [id number] - Vadim Pulliam Notice Issued Date-Time: 12/03/2018 14:55 Notice Type: Patient Choice Letter Notice Delivered To: Patient Relationship to Patient: Residential Sales Manager Name: Delivery Method: HAND - Hand Delivered Alexandra Days: Prior Verbal Notification: Recipient Understood Notice: Yes Recipient Signature: Yes Med Rec Note Co-signed by Attending: Coverage Notice Comment: 1. ZEKE 2. JERO WILLS 3. LY 4. MYRON Corona DP export: 12/04/18 3:35 pm Patient Name: KUSUM SHAY Page [id number] at 0815 All edits/amendments must be made on the electronic document DICTATION DATE: 12/05/18814 VP ANCILLARY: ROSELYN 12/05/18814 RPT#: [id number] DC DATE: STATUS: ADM IN [facility] [address] [place] [address] END OF REPORT
[2018-12-05 09:34] VITALS: BP 123/49
--- NOTE | 2018-12-05 10:10 | MORECARE ---
CASE MANAGEMENT DISCHARGE SUMMARY PATIENT: KUSUM SHAY UNIT: [id number] ADM DATE: 11/29/18 AGE: 58 : 62 SEX: M ROOM/BED: D.2132 AUTHOR: EDEL,DOC PHYSICIAN: REFERRING PHYSICIAN: GLENN SANDRA MD DATE OF SERVICE: 12/05/18 Discharge Plan Patient Name: KUSUM SHAY Facility: [facility]:[place] : 1960 Planned Disposition: Residential Facility Anticipated Discharge Date: 12/04/18 Discharge Date: Expected LOS: 5 Initial Reviewer: [id number] Initial Review Date: 11/29/2018 Generated: 12/05/18 11:09 am Comments DCP- Discharge Planning Updated by [id number]: Vadim Pulliam on 12/04/18 3:[address] Patient Name: KUSUM SHAY Encounter No: [id number] : 1960 Primary Insurance: [facility] MED[facility] SOLUTIONS Anticipated DC Date: Planned Disposition: [facility] FACILITY External [facility] SKILLED BED DCP follow-up note: CM RECEIVED CALL FROM VISHNU [facility] WHO ADVISED THEY WILL NOT ACCEPT PT. CM SPOKE TO FERN OF INPATIENT REHAB WHO INFORMED CM THAT PT IS TOO HIGH FUNCTIONING FOR INPATIENT REHAB. CM SPOKE TO PT IN ROOM, DISCUSSED DISCHARGE PLANNING AND OPTIONS. PT CANNOT DO WOUND CARE HIMSELF AND HAS NO TEACHABLE PROCESS SAFETY ENGINEER AND HOME HEALTH WILL NOT DO DAILY WOUND CARE. PT WOULD LIKE TO EXPLORE [facility] FOR SKILLED CARE LONG IT IS COVERED BY HIS INSURANCE. CHOICE LISTING PROVIDED, PT SIGNED CHOICE FOR 1. [place] 2. [facility]. [facility]. [facility]. CM CALLED [facility], , SPOKE TO JACQUELINE WHO REPORTS THEY CAN CONTACT INSURANCE TO ENSURE SERVICES WOULD BE COVERED. CM FAXED REFERRAL TO [facility] AT [phone]. CM WAITING INSURANCE AUTHORIZATION FOR SKILLED SERVICES WELL [facility]. Vadim Pulliam, CASE MANAGEMENT Appended by Vadim Pulliam on 12/04/2018 16:27 RADIOCOMMUNICATIONS TECHNICIAN: CM RECEIVED CALL FROM PONCHO OF [facility], THEY WILL NOT ACCEPT, RECOMMENDED HOME WITH HOME HEALTH. CM PLEADED PT'S CASE HE HAS NO ONE AT HOME TO ASSIST, CANNOT DO THE WOUND CARE HIMSELF AND HOME HEALTH WILL NOT COME OUT DAILY. ZEKE'S ANSWER CONTINUES TO BE NO. CM CALLED AND SPOKE TO CLARE AT [facility] AND CLARE REPORTED THAT PT WILL HAVE A COPAY AND THAT PT WILL NOT KNOW UNTIL AFTER THE PENITENTIARY STAY OF EXACTLY HOW MUCH HE OWES. PT HAS ALREADY INFORMED CM THAT HE WILL NOT CONSIDER GOING SOMEWHERE WITH COPAY. CM CALLED [facility], , SPOKE TO EUGENIA WHO WILL CHECK WITH ADMISSIONS STAFF AND INSURANCE COMPANY TO SEE IF THEY COULD ADMIT FOR WOUND CARE ONLY. CM FAXED FACE SHEET TO [facility] AT [phone], CM WAITING DETERMINATION ON [facility] AND [facility] VADIM PULLIAM CASE MANAGEMENT DCP- Discharge Planning Updated by [id number]: Vadim Pulliam on 12/04/18 12:[address] Patient Name: KUSUM SHAY Encounter No: [id number] : 1960 Primary Insurance: [facility] MEDICARE SOLUTIONS Anticipated DC Date: 12-04-2018 Planned Disposition: Residential Facility External Planned Provider: [facility], MEDICARE SKILLED BED DCP follow-up note: CM FAXED REFERRAL UDPATE TO [facility] AT [phone]. CM WAITING INSURANCE AUTHORIZATION FOR SKILLED SERVICES WELL [facility]MISSION [facility] EVELIO Hackett DCP- Discharge Planning Updated by [id number]: Vadim Pulliam on 12/03/18 9:[address] Patient Name: KUSUM SHAY Encounter No: [id number] : 1960 Primary Insurance: [facility] MEDICARE SOLUTIONS Anticipated DC Date: Planned Disposition: GROUP HOME [facility]ITAL Provider: BOBBY EDWARDS Discharge Planning Comments: CM RECEIVED CALL FROM VISHNU OF [facility], , WHO ASKED FOR REFERRAL UPDATE TO BE FAXED. CM FAXED REFERRAL UPDATE TO LARA GONSALEZ AT [phone]. CM WAITING INSURANCE AUTHORIZATION FOR COAL SCREENER ACUTE CARE SERVICES AT [facility]. CM TO FAX REFERRAL UPDATE TO [facility], ON 12-03-18. Shingler: Vadim Pulliam DCP- Discharge Planning Updated by [id number]: Vadim Pulliam on 11/30/18 2:[address] Patient Name: KUSUM SHAY Admission Status: ER Accout number: [id number] Admission Date: 11-29-2018 : 1960 Admission Diagnosis:SHORTNESS OF BREATH Attending: GLENN SANDRA Current LOS: 1 Anticipated DC Date: Planned Disposition: [facility]AL SCREENER ACUTE [facility] Primary Insurance: [facility] MEDICARE SOLUTIONS PLANNED EXTERNAL PROVIDER: LARA GONSALEZ [place] Discharge Planning Comments: CM RECEIVED CALL FROM KASHMIR OF [facility], , WHO INFORMED CM THAT [facility] REFUSED TO SEE PT AND WERE NOT DOING EVERY OTHER DAY DRESSING CHANGES WAS AGREED AT HOSPITAL DISCHARGE; [facility] IS NOT ABLE TO SEE PT FOR DAILY DRESSING CHANGES ANY LONGER AND COULD GO OUT EVERY OTHER DAY IF NEEDED. PT HAS NO TEACHABLE CAREGIVER IN THE HOME. CM RECEIVED ORDERS FOR INPATIENT REHAB PRESCREENING, MET WITH PT IN ROOM TO DISCUSS DISCHARGE PLANNING AND NEEDS. PT REPORTS LIVING AT HOME INDEPENDENTLY AND ALONE. PT HAS CANE AND HOSPITAL BED WITH NO MEDICAL EQUIPMENT PROVIDER PREFERNCE. PT HAS [facility] FOR WOUND CARE AT HOME. CM DISCUSSED CALL FROM [facility] AND INABILITY TO DO DAILY DRESSING CHANGES AND THAT [facility] REFUSED TO ACCEPT PT. CM DISCUSSED AVAILABILITY OF REHAB SERVICES AND MEDICAL EQUIPMENT. CM DISCUSSED AVAILABILITY OF LTACH. PT REPORTS INABILITY TO DO THE DRESSING CHANGES HIMSELF AT HOME AND IS CONCERNED ABOUT WOUND CARE AT THIS TIME. PT WOULD CONSIDER INPATIENT REHAB OR GROUP HOME ACUTE CARE LONG COVERED BY INSURANCE. PT WOULD GO TO [facility] BUT WILL NOT CONSIDER GOING TO [place] FOR LTACH SERVICES. PT WILL NOT CONSIDER GOING TO A [facility] FACILITY AT ALL. CM PROVIDED HOSPITAL EXAMINER RATING CLERK AND CM CONTACT PHONE NUMBER. CM NOTIFIED SUDEEP MCGEE AND RECEIVED LTACH EVALUATION ORDER. CM SPOKE TO FERN OF INPATIENT REHAB AT [place], THEY WILL BE FOLLOWING AND WILL HAVE TO SUBMIT TO MANAGED MEDICARE FOR AUTHORIZATION WHEN ALL THERAPY EVALUATIONS ARE COMPLETED AND DOCUMENTED. CM CALLED [facility], , SPOKE TO VISHNU WHO INFORMED CM THAT PT HAD PREVIOUSLY BEEN REFERRED DURING PREVIOUS HOSPITAL STAY AND HAD BEEN APPROVED BY INSURANCE BUT CHOSE TO GO HOME WITH HOME HEALTH. CM PROVIDED REFERRAL INFORMATION AND NOTIFIED OF PT'S CHANGE OF MIND. CM FAXED REFERRAL TO LARA GONSALEZ AT [phone]. VISHNU INFORMED CM THAT THEY WILL NOT HAVE ANYTHING FROM INSURANCE PRIOR TO MONDAY AND ASKED CM TO FAX UPDATE ON MONDAY. CM WAITING INSURANCE AUTHORIZATION FOR GROUP HOME ACUTE CARE SERVICES AT [facility]. CM TO FAX REFERRAL UPDATE TO [facility], ON 12-03-18. Shingler: Vadim Pulliam DCPIA - Discharge Planning Initial Assessment Updated by [id number]: Vadim Pulliam on 11/30/18 3:01 pm * Is the patient Alert and Oriented? Yes * How many steps to enter\exit or inside your home? 6 W / RAIL * PCP DR. RODRIGUEZ (NOT YET SEEN) DR. IZQUIERDO SIGNING [facility] ORDERS UNTIL DR. RODRIGUEZ ADMITS NEW PATIENT * Pharmacy [facility] [place] * Preadmission Environment Home Alone * ADLs Independent * Equipment Cane Hospital Bed * Other Equipment NO MEDICAL EQUIPMENT PROVIDER PREFERENCE * List name and contact numbers for known caregivers / representatives who currently or will assist patient after discharge: NESHA KHALIL IN LAW, SUSANA CROWELL, * Verbal permission to speak to the caregivers and representatives has been obtained from the patient. N/A * Community resources currently utilized Home Health * Please name any agencies selected above. [facility], NURSING / WOUND CARE * Additional services required to return to the preadmission environment? Yes * Can the patient safely return to the preadmission environment? Yes * Has this patient been hospitalized within the prior 30 days at any hospital? Yes External Providers External Provider: OTHER-OTHER Next Contact Date: 12/05/2018 Service Request Date: Service Type: Resolution: Reviewer: Comments: Coverage Notice Reviewer: [id number] - Vadim Pulliam Notice Issued Date-Time: 12/03/2018 14:55 Notice Type: Patient Choice Letter Notice Delivered To: Patient Relationship to Patient: Chemical Strength Tester Name: Delivery Method: HAND - Hand Delivered Alexandra Days: Prior Verbal Notification: Recipient Understood Notice: Yes Recipient Signature: Yes Med Rec Note Co-signed by Attending: Coverage Notice Comment: 1. ZEKE 2. JERO WILLS 3. [place] 4. CANABIMAEL HAYWARD Last DP export: 12/05/18 7:15 am Patient Name: KUSUM SHAY Page [id number] at 1010 All edits/amendments must be made on the electronic document DICTATION DATE: 12/05/18 100 CASTING ROOM OPERATOR: ROSELYN 12/05/18 100 RPT#: [id number] DC DATE: STATUS: ADM IN [facility] [address] [place] [address] END OF REPORT
--- NOTE | 2018-12-05 10:16 | MORECARE ---
CASE MANAGEMENT DISCHARGE SUMMARY PATIENT: KUSUM SHAY UNIT: [id number] ADM DATE: 11/29/18 AGE: 58 : 62 SEX: M ROOM/BED: D.2132 AUTHOR: EDEL,DOC PHYSICIAN: REFERRING PHYSICIAN: GLENN SANDRA MD DATE OF SERVICE: 12/05/18 Discharge Plan Patient Name: KUSUM SHAY Facility: [facility]:[place] : 1960 Planned Disposition: Swing Bed (Medicare Approved) Anticipated Discharge Date: 12/05/18 Discharge Date: Expected LOS: 6 Initial Reviewer: [id number] Initial Review Date: 11/29/2018 Generated: 12/05/18 11:16 am Comments DCP- Discharge Planning Updated by [id number]: Vadim Pulliam on 12/04/18 3:[address] Patient Name: KUSUM SHAY Encounter No: [id number] : 1960 Primary Insurance: [facility] MEDICARE [employer] Anticipated DC Date: Planned Disposition: LONGTERM FACILITY External Planned Provider: [facility], MEDICARE SKILLED BED DCP follow-up note: CM RECEIVED CALL FROM VISHNU [facility] WHO ADVISED THEY WILL NOT ACCEPT PT. CM SPOKE TO FERN OF INPATIENT REHAB WHO INFORMED CM THAT PT IS TOO HIGH FUNCTIONING FOR INPATIENT REHAB. CM SPOKE TO PT IN ROOM, DISCUSSED DISCHARGE PLANNING AND OPTIONS. PT CANNOT DO WOUND CARE HIMSELF AND HAS NO TEACHABLE TECHNICAL TRAINING COORDINATOR AND HOME HEALTH WILL NOT DO DAILY WOUND CARE. PT WOULD LIKE TO EXPLORE LONGTERM FOR SKILLED CARE LONG IT IS COVERED BY HIS INSURANCE. CHOICE LISTING PROVIDED, PT SIGNED CHOICE FOR 1. [place] 2. [place] 3. [place] 4. [facility]. CM CALLED [facility], , SPOKE TO JACQUELINE WHO REPORTS THEY CAN CONTACT INSURANCE TO ENSURE SERVICES WOULD BE COVERED. CM FAXED REFERRAL TO [facility] AT [phone]. CM WAITING INSURANCE AUTHORIZATION FOR SKILLED SERVICES WELL ADMISSION DETERMINATION FROM [facility]. Vadim Pulliam, CASE MANAGEMENT Appended by Vadim Pulliam on 12/04/2018 16:27 DRY WALL APPLICATOR: CM RECEIVED CALL FROM PONCHO OF [facility], THEY WILL NOT ACCEPT, RECOMMENDED HOME WITH HOME HEALTH. CM PLEADED PT'S CASE HE HAS NO ONE AT HOME TO ASSIST, CANNOT DO THE WOUND CARE HIMSELF AND HOME HEALTH WILL NOT COME OUT DAILY. ZEKE'S ANSWER CONTINUES TO BE NO. CM CALLED AND SPOKE TO CLARE AT [facility] AND CLARE REPORTED THAT PT WILL HAVE A COPAY AND THAT PT WILL NOT KNOW UNTIL AFTER THE LONG TERM STAY OF EXACTLY HOW MUCH HE OWES. PT HAS ALREADY INFORMED CM THAT HE WILL NOT CONSIDER GOING SOMEWHERE WITH COPAY. CM CALLED [facility], , SPOKE TO EUGENIA WHO WILL CHECK WITH ADMISSIONS STAFF AND INSURANCE COMPANY TO SEE IF THEY COULD ADMIT FOR WOUND CARE ONLY. CM FAXED FACE SHEET TO [facility] AT [phone], CM WAITING DETERMINATION ON [facility] AND [facility]. VADIM PULLIAM CASE MANAGEMENT DCP- Discharge Planning Updated by [id number]: Vadim Pulliam on 12/04/18 12:[address] Patient Name: KUSUM SHAY Encounter No: [id number] : 1960 Primary Insurance: [facility] MEDICARE SOLUTIONS Anticipated DC Date: 12-04-2018 Planned Disposition: Penitentiary Facility External Planned Provider: [facility]IC[facility] SKILLED BED DCP follow-up note: CM FAXED REFERRAL UDPATE TO [facility] AT [phone]. CM WAITING INSURANCE AUTHORIZATION FOR SKILLED SERVICES WELL [facility] EVELIO Hackett DCP- Discharge Planning Updated by [id number]: Vadim Pulliam on 12/03/18 9:[address] Patient Name: KUSUM SHAY Encounter No: [id number] : 1960 Primary Insurance: [facility] MEDICARE SOLUTIONS Anticipated DC Date: Planned Disposition: TECHNICAL PROGRAM MANAGER [facility] Provider: BOBBY EDWARDS SHEBOYGANAndrew Discharge Planning Comments: CM RECEIVED CALL FROM VISHNU OF [facility], , WHO ASKED FOR REFERRAL UPDATE TO BE FAXED. CM FAXED REFERRAL UPDATE TO LARA GONSALEZ AT [phone]. CM WAITING INSURANCE AUTHORIZATION FOR ASSISTED ACUTE CARE SERVICES AT [facility]. CM TO FAX REFERRAL UPDATE TO [facility], ON 12-03-18. Dowel Inspector: Vadim Pulliam DCP- Discharge Planning Updated by [id number]: Vadim Pulliam on 11/30/18 2:[address] Patient Name: KUSUM SHAY Admission Status: ER Accout number: [id number] Admission Date: 11-29-2018 : 1960 Admission Diagnosis:SHORTNESS OF BREATH Attending: GLENN SANDRA Current LOS: 1 Anticipated DC Date: Planned Disposition: ASSISTED ACUTE [facility] Primary Insurance: [facility] MEDICARE SOLUTIONS PLANNED EXTERNAL PROVIDER: BOBBY EDWARDS Discharge Planning Comments: CM RECEIVED CALL FROM KASHMIR OF [facility], , WHO INFORMED CM THAT [facility] AND WERE NOT DOING EVERY OTHER DAY DRESSING CHANGES WAS AGREED AT HOSPITAL DISCHARGE; [facility] IS NOT ABLE TO SEE PT FOR DAILY DRESSING CHANGES ANY LONGER AND COULD GO OUT EVERY OTHER DAY IF NEEDED. PT HAS NO TEACHABLE CAREGIVER IN THE HOME. CM RECEIVED ORDERS FOR INPATIENT REHAB PRESCREENING, MET WITH PT IN ROOM TO DISCUSS DISCHARGE PLANNING AND NEEDS. PT REPORTS LIVING AT HOME INDEPENDENTLY AND ALONE. PT HAS CANE AND HOSPITAL BED WITH NO MEDICAL EQUIPMENT PROVIDER PREFERNCE. PT HAS [facility] FOR WOUND CARE AT HOME. CM DISCUSSED CALL FROM [facility] AND INABILITY TO DO DAILY DRESSING CHANGES AND THAT [facility]. CM DISCUSSED AVAILABILITY OF REHAB SERVICES AND MEDICAL EQUIPMENT. CM DISCUSSED AVAILABILITY OF LTACH. PT REPORTS INABILITY TO DO THE DRESSING CHANGES HIMSELF AT HOME AND IS CONCERNED ABOUT WOUND CARE AT THIS TIME. PT WOULD CONSIDER INPATIENT REHAB OR ASSISTED ACUTE CARE LONG COVERED BY INSURANCE. PT WOULD GO TO [facility] BUT WILL NOT CONSIDER GOING TO [place] FOR LTACH SERVICES. PT WILL NOT CONSIDER GOING TO A LONGTERM FACILITY AT ALL. CM PROVIDED HOSPITAL WARD CLERK AND CM CONTACT PHONE NUMBER. CM NOTIFIED SUDEEP MCGEE AND RECEIVED LTACH EVALUATION ORDER. CM SPOKE TO FERN OF INPATIENT REHAB AT [place], THEY WILL BE FOLLOWING AND WILL HAVE TO SUBMIT TO MANAGED MEDICARE FOR AUTHORIZATION WHEN ALL THERAPY EVALUATIONS ARE COMPLETED AND DOCUMENTED. CM CALLED [facility], , SPOKE TO VISHNU WHO INFORMED CM THAT PT HAD PREVIOUSLY BEEN REFERRED DURING PREVIOUS HOSPITAL STAY AND HAD BEEN APPROVED BY INSURANCE BUT CHOSE TO GO HOME WITH HOME HEALTH. CM PROVIDED REFERRAL INFORMATION AND NOTIFIED OF PT'S CHANGE OF MIND. CM FAXED REFERRAL TO [facility] AT [phone]. VISHNU INFORMED CM THAT THEY WILL NOT HAVE ANYTHING FROM INSURANCE PRIOR TO MONDAY AND ASKED CM TO FAX UPDATE ON MONDAY. CM WAITING INSURANCE AUTHORIZATION FOR ASSISTED ACUTE CARE SERVICES AT [facility]. CM TO FAX REFERRAL UPDATE TO [facility], ON 12-03-18. Dowel Inspector: Vadim Pulliam DCPIA - Discharge Planning Initial Assessment Updated by [id number]: Vadim Pulliam on 11/30/18 3:01 pm * Is the patient Alert and Oriented? Yes * How many steps to enter\exit or inside your home? 6 W / RAIL * PCP DR. RODRIGUEZ (NOT YET SEEN) DR. IZQUIERDO SIGNING [facility] ORDERS UNTIL DR. RODRIGUEZ ADMITS NEW PATIENT * Pharmacy [facility] [place] * Preadmission Environment Home Alone * ADLs Independent * Equipment Cane Hospital Bed * Other Equipment NO MEDICAL EQUIPMENT PROVIDER PREFERENCE * List name and contact numbers for known caregivers / representatives who currently or will assist patient after discharge: NESHA KHALIL IN LAW, SUSANA CROWELL, * Verbal permission to speak to the caregivers and representatives has been obtained from the patient. N/A * Community resources currently utilized Home Health * Please name any agencies selected above. [facility], NURSING / WOUND CARE * Additional services required to return to the preadmission environment? Yes * Can the patient safely return to the preadmission environment? Yes * Has this patient been hospitalized within the prior 30 days at any hospital? Yes Coverage Notice Reviewer: [id number] - Vadim Pulliam Notice Issued Date-Time: 12/03/2018 14:55 Notice Type: Patient Choice Letter Notice Delivered To: Patient Relationship to Patient: Bedspread Cutter Name: Delivery Method: HAND - Hand Delivered Alexandra Days: Prior Verbal Notification: Recipient Understood Notice: Yes Recipient Signature: Yes Med Rec Note Co-signed by Attending: Coverage Notice Comment: 1. ZEKE 2. JERO WILLS 3. LY 4. MYRON SANTAMARIAS Last DP export: 12/05/18 9:09 am Patient Name: KUSUM SHAY Page [id number] at 1016 All edits/amendments must be made on the electronic document DICTATION DATE: 12/05/18 1016 PROFESSIONAL MODEL: ROSELYN 12/05/18 1016 RPT#: [id number] DC DATE: STATUS: ADM IN [facility] [address] [place] [address] END OF REPORT
--- NOTE | 2018-12-05 10:30 | NUR ---
LIRIANO DC'D ORDERED WITH 350 CC URINE IN BAG. ATTEMPTED TO INSERT NEW CATH ORDERED AND UNABLE TO ADVANCE. PT REQUESTED LIRIANO BE REMOVED AND NOT BE REPLACED SINCE HE IS ABLE TO GET UP AND GO TO THE BATHROOM. REFUSED TO LET LIRIANO BE REPLACED. DRESSING CHANGED ORDERED AND PT TOLERATED WELL.
--- NOTE | 2018-12-05 10:37 | MORECARE ---
CASE MANAGEMENT DISCHARGE SUMMARY PATIENT: KUSUM SHAY UNIT: [id number] ADM DATE: 11/29/18 AGE: 58 : 62 SEX: M ROOM/BED: D.2132 AUTHOR: EDEL,DOC PHYSICIAN: REFERRING PHYSICIAN: GLENN SANDRA MD DATE OF SERVICE: 12/05/18 Discharge Plan Patient Name: KUSUM SHAY Facility: [facility]:[place] : 1960 Planned Disposition: Swing Bed (Medicare Approved) Anticipated Discharge Date: 12/05/18 Discharge Date: Expected LOS: 6 Initial Reviewer: [id number] Initial Review Date: 11/29/2018 Generated: 12/05/18 11:37 am Comments DCP- Discharge Planning Updated by [id number]: Vadim Pulliam on 12/05/18 9:[address] Patient Name: KUSUM SHAY Encounter No: [id number] : 1960 Primary Insurance: [facility] MEDICARE SOLUTIONS Anticipated DC Date: 12-05-2018 Planned Disposition: Swing Bed (Medicare Approved) External Planned Provider: [facility] DCP follow-up note: CM RECEIVED ORDER FOR LTACH PLACEMENT. PT HAS BEEN DECLINED BY LTACH. CM SPOKE TO PT IN ROOM, UPDATED THAT HE HAD BEEN DECLINED BY [facility], [facility], [facility] INFORMED THAT PT WILL HAVE COPAY THAT PT IS NOT WILLING TO PAY, [facility] IS STILL CONSIDERING PT. CM DISCUSSED SWING BED NURSING SERVICES AT [facility]. PT REPORTS AGREEMENT WITH THIS PLAN. IMPORTANT MESSAGE FROM MEDICARE PROVIDED AND DISCUSSED. CM CALLED [facility] IN [place], , SPOKE TO GELACIO CALZADA REGARDING SWING BED. GELACIO WILL RECEIVE REFERRAL AND SCREEN FOR ADMISSION. CM FAXED REFERRAL TO [facility] SWING BED UNIT AT [phone]. CM WAITING ADMISSION DETERMINATIONS FROM [facility] AND [facility] SWING BED UNIT. Vadim Pulliam, CASE MANAGEMENT Appended by Vadim Pulliam on 12/05/2018 10:36 PIG HANDLER: CM RECEIVED CALL FROM EUGENIA OF [facility], THEY ARE OUT OF NETWORK WITH PT'S INSURANCE, INFORMED CM THAT SHE FOUND OUT THAT PT WILL HAVE TO PAY A DAILY RATE OF $175 PER DAY TO ENTER ANY IN NETWORK CORRECTION FACILITY. PT NOTIFIED AND IS STILL IN AGREEMENT WITH REFERRAL TO [facility] SWING BED UNIT, NOT A CORRECTION FACILITY AT THIS TIME. CM WAITING ADMISSION DETERMINATION FROM [facility] SWING BED UNIT. VADIM PULLIAM, CASE MANAGEMENT DCP- Discharge Planning Updated by [id number]: Vadim Pulliam on 12/04/18 3:[address] Patient Name: KUSUM SHAY Encounter No: [id number] : 1960 Primary Insurance: [facility] MEDICARE SOLUTIONS Anticipated DC Date: Planned Disposition: CORRECTION FACILITY External Planned Provider: [facility], MEDICARE SKILLED BED DCP follow-up note: CM RECEIVED CALL FROM [facility] WHO ADVISED THEY WILL NOT ACCEPT PT. CM SPOKE TO FERN OF INPATIENT REHAB WHO INFORMED CM THAT PT IS TOO HIGH FUNCTIONING FOR INPATIENT REHAB. CM SPOKE TO PT IN ROOM, DISCUSSED DISCHARGE PLANNING AND OPTIONS. PT CANNOT DO WOUND CARE HIMSELF AND HAS NO TEACHABLE UNARMED SECURITY OFFICER AND HOME HEALTH WILL NOT DO DAILY WOUND CARE. PT WOULD LIKE TO EXPLORE CORRECTION FOR SKILLED CARE LONG IT IS COVERED BY HIS INSURANCE. CHOICE LISTING PROVIDED, PT SIGNED CHOICE FOR 1. [facility] 2. [place] 3. [facility] 4. [facility]. CM CALLED [facility], , SPOKE TO JACQUELINE WHO REPORTS THEY CAN CONTACT INSURANCE TO ENSURE SERVICES WOULD BE COVERED. CM FAXED REFERRAL TO [facility] AT [phone]. CM WAITING INSURANCE AUTHORIZATION FOR SKILLED SERVICES WELL ADMISSION DETERMINATION FROM [facility]. Vadim Pulliam, CASE MANAGEMENT Appended by Vadim Pulliam on 12/04/2018 16:27 PIG HANDLER: CM RECEIVED CALL FROM PONCHO OF [facility], THEY WILL NOT ACCEPT, RECOMMENDED HOME WITH HOME HEALTH. CM PLEADED PT'S CASE HE HAS NO ONE AT HOME TO ASSIST, CANNOT DO THE WOUND CARE HIMSELF AND HOME HEALTH WILL NOT COME OUT DAILY. QUAPAW'S ANSWER CONTINUES TO BE NO. CM CALLED AND SPOKE TO CLARE AT [facility] AND CLARE REPORTED THAT PT WILL HAVE A COPAY AND THAT PT WILL NOT KNOW UNTIL AFTER THE SKILLED NURSING STAY OF EXACTLY HOW MUCH HE OWES. PT HAS ALREADY INFORMED CM THAT HE WILL NOT CONSIDER GOING SOMEWHERE WITH COPAY. CM CALLED [facility], , SPOKE TO EUGENIA WHO WILL CHECK WITH ADMISSIONS STAFF AND INSURANCE COMPANY TO SEE IF THEY COULD ADMIT FOR WOUND CARE ONLY. CM FAXED FACE SHEET TO A[facility] AT [phone], CM WAITING DETERMINATION ON ADMISSION AND INSURANCE FROM [facility]. VADIM PULLIAM CASE MANAGEMENT DCP- Discharge Planning Updated by [id number]: Vadim Pulliam on 12/04/18 12:[address] Patient Name: KUSUM SHAY Encounter No: [id number] : 1960 Primary Insurance: [facility] MEDICARE SOLUTIONS Anticipated DC Date: 12-04-2018 Planned Disposition: Long-Term Facility External Planned Provider: [facility], MEDICARE SKILLED BED DCP follow-up note: CM FAXED REFERRAL UDP[place] TO [facility] AT [phone]. CM WAITING INSURANCE AUTHORIZATION FOR SKILLED SERVICES WELL ADMISSION DETERMINATION FROM [facility]. EVELIO Hackett DCP- Discharge Planning Updated by [id number]: Vadim Pulliam on 12/03/18 9:[address] Patient Name: KUSUM SHAY Encounter No: [id number] : 1960 Primary Insurance: [facility] MEDICARE SOLUTIONS Anticipated DC Date: Planned Disposition: [facility] Provider: LARA GONSALEZ [place] Discharge Planning Comments: CM RECEIVED CALL FROM VISHNU OF [facility], , WHO ASKED FOR REFERRAL UPDATE TO BE FAXED. CM FAXED REFERRAL UPDATE TO LARA GONSALEZ AT [phone]. CM WAITING INSURANCE AUTHORIZATION FOR DETENTION ACUTE CARE SERVICES AT [facility]. CM TO FAX REFERRAL UPDATE TO LARA GONSALEZ, ON 12-03-18. Ase Certified Technician: Vadim Pulliam DCP- Discharge Planning Updated by [id number]: Vadim Pulliam on 11/30/18 2:[address] Patient Name: KUSUM SHAY Admission Status: ER Accout number: [id number] Admission Date: 11-29-2018 : 1960 Admission Diagnosis:SHORTNESS OF BREATH Attending: GLENN SANDRA Current LOS: 1 Anticipated DC Date: Planned Disposition: ORDER ENTRY [facility] Primary Insurance: [facility] MEDICARE SOLUTIONS PLANNED EXTERNAL PROVIDER: BOBBY EDWARDS Discharge Planning Comments: CM RECEIVED CALL FROM KASHMIR OF [facility], , WHO INFORMED CM THAT [facility] AND WERE NOT DOING EVERY OTHER DAY DRESSING CHANGES WAS AGREED AT HOSPITAL DISCHARGE; [facility] IS NOT ABLE TO SEE PT FOR DAILY DRESSING CHANGES ANY LONGER AND COULD GO OUT EVERY OTHER DAY IF NEEDED. PT HAS NO TEACHABLE CAREGIVER IN THE HOME. CM RECEIVED ORDERS FOR INPATIENT REHAB PRESCREENING, MET WITH PT IN ROOM TO DISCUSS DISCHARGE PLANNING AND NEEDS. PT REPORTS LIVING AT HOME INDEPENDENTLY AND ALONE. PT HAS CANE AND HOSPITAL BED WITH NO MEDICAL EQUIPMENT PROVIDER PREFERNCE. PT HAS [facility] FOR WOUND CARE AT HOME. CM DISCUSSED CALL FROM [facility] AND INABILITY TO DO DAILY DRESSING CHANGES AND THAT [facility] PT. CM DISCUSSED AVAILABILITY OF REHAB SERVICES AND MEDICAL EQUIPMENT. CM DISCUSSED AVAILABILITY OF LTACH. PT REPORTS INABILITY TO DO THE DRESSING CHANGES HIMSELF AT HOME AND IS CONCERNED ABOUT WOUND CARE AT THIS TIME. PT WOULD CONSIDER INPATIENT REHAB OR DETENTION ACUTE CARE LONG COVERED BY INSURANCE. PT WOULD GO TO [facility] BUT WILL NOT CONSIDER GOING TO [place] FOR LTACH SERVICES. PT WILL NOT CONSIDER GOING TO A CORRECTION FACILITY AT ALL. CM PROVIDED HOSPITAL AGRICULTURAL PRODUCE SORTER AND CM CONTACT PHONE NUMBER. CM NOTIFIED SUDEEP MCGEE AND RECEIVED LTACH EVALUATION ORDER. CM SPOKE TO FERN OF INPATIENT REHAB AT [place], THEY WILL BE FOLLOWING AND WILL HAVE TO SUBMIT TO [facility] MEDICARE FOR AUTHORIZATION WHEN ALL THERAPY EVALUATIONS ARE COMPLETED AND DOCUMENTED. CM CALLED [facility], , SPOKE TO VISHNU WHO INFORMED CM THAT PT HAD PREVIOUSLY BEEN REFERRED DURING PREVIOUS HOSPITAL STAY AND HAD BEEN APPROVED BY INSURANCE BUT CHOSE TO GO HOME WITH HOME HEALTH. CM PROVIDED REFERRAL INFORMATION AND NOTIFIED OF PT'S CHANGE OF MIND. CM FAXED REFERRAL TO [facility] AT [phone]. VISHNU INFORMED CM THAT THEY WILL NOT HAVE ANYTHING FROM INSURANCE PRIOR TO MONDAY AND ASKED CM TO FAX UPDATE ON MONDAY. CM WAITING INSURANCE AUTHORIZATION FOR DETENTION ACUTE CARE SERVICES AT [facility]. CM TO FAX REFERRAL UPDATE TO [facility], ON 12-03-18. Ase Certified Technician: Vadim Pulliam DCPIA - Discharge Planning Initial Assessment Updated by QIAN: Vadim Pulliam on 11/30/18 3:01 pm * Is the patient Alert and Oriented? Yes * How many steps to enter\exit or inside your home? 6 W / RAIL * PCP DR. RODRIGUEZ (NOT YET SEEN) DR. IZQUIERDO SIGNING [facility] ORDERS UNTIL DR. RODRIGUEZ ADMITS NEW PATIENT * Pharmacy BUCKS IN CABLE * Preadmission Environment Home Alone * ADLs Independent * Equipment Cane Hospital Bed * Other Equipment NO MEDICAL EQUIPMENT PROVIDER PREFERENCE * List name and contact numbers for known caregivers / representatives who currently or will assist patient after discharge: NESHA KHALIL IN LAW, SUSANA CROWELL, * Verbal permission to speak to the caregivers and representatives has been obtained from the patient. N/A * Community resources currently utilized Home Health * Please name any agencies selected above. [facility], NURSING / WOUND CARE * Additional services required to return to the preadmission environment? Yes * Can the patient safely return to the preadmission environment? Yes * Has this patient been hospitalized within the prior 30 days at any hospital? Yes Coverage Notice Reviewer: [id number] Chandrika Pulliam Notice Issued Date-Time: 12/03/2018 14:55 Notice Type: Patient Choice Letter Notice Delivered To: Patient Relationship to Patient: District Wildlife Manager Name: Delivery Method: HAND - Hand Delivered Alexandra Days: Prior Verbal Notification: Recipient Understood Notice: Yes Recipient Signature: Yes Med Rec Note Co-signed by Attending: Coverage Notice Comment: 1. ZEKE 2. JERO WILLS 3. LY 4. MYRON HAYWARD Reviewer: [id number] Chandrika Pulliam Notice Issued Date-Time: 12/05/2018 10:20 Notice Type: IM Discharge Notice Notice Delivered To: Patient Relationship to Patient: District Wildlife Manager Name: Delivery Method: HAND - Hand Delivered Alexandra Days: Prior Verbal Notification: Recipient Understood Notice: Yes Recipient Signature: Yes Med Rec Note Co-signed by Attending: Coverage Notice Comment: Last DP export: 12/05/18 9:16 am Patient Name: KUSUM SHAY Page [id number] at 1037 All edits/amendments must be made on the electronic document DICTATION DATE: 12/05/18 1037 SOFT SUGAR SUPERVISOR: ROSELYN 12/05/18 1037 RPT#: [id number] DC DATE: STATUS: ADM IN [facility] [address] [place] [address] END OF REPORT
[2018-12-05 12:13] VITALS: BP 117/72
[2018-12-05] MEDS ORDERED: VIBRAMYCIN 100100 MG PO (13:30)
[2018-12-05] MEDS ORDERED: ELIQUIS5 MG PO ×2 (13:31→13:32)
--- NOTE | 2018-12-05 13:46 | MORECARE ---
CASE MANAGEMENT DISCHARGE SUMMARY PATIENT: KUSUM SHAY UNIT: [id number] ADM DATE: 11/29/18 AGE: 58 : 62 SEX: M ROOM/BED: D.2132 AUTHOR: EDEL,DOC PHYSICIAN: REFERRING PHYSICIAN: GLENN SANDRA MD DATE OF SERVICE: 12/05/18 Discharge Plan Patient Name: KUSUM SHAY Facility: [facility]:[place] : 1960 Planned Disposition: Swing Bed (Medicare Approved) Anticipated Discharge Date: 12/05/18 Discharge Date: Expected LOS: 6 Initial Reviewer: [id number] Initial Review Date: 11/29/2018 Generated: 12/05/18 2:46 pm Comments DCP- Discharge Planning Updated by [id number]: Vadim Pulliam on 12/05/18 9:[address] Patient Name: KUSUM SHAY Encounter No: [id number] : 1960 Primary Insurance: [facility] MEDICARE SOLUTIONS Anticipated DC Date: 12-05-2018 Planned Disposition: Swing Bed (Medicare Approved) External Planned Provider: [facility] DCP follow-up note: CM RECEIVED ORDER FOR LTACH PLACEMENT. PT HAS BEEN DECLINED BY LTACH. CM SPOKE TO PT IN ROOM, UPDATED THAT HE HAD BEEN DECLINED BY [facility], [facility], [facility] INFORMED THAT PT WILL HAVE COPAY THAT PT IS NOT WILLING TO PAY, [facility] IS STILL CONSIDERING PT. CM DISCUSSED SWING BED NURSING SERVICES AT [facility]. PT REPORTS AGREEMENT WITH THIS PLAN. IMPORTANT MESSAGE FROM MEDICARE PROVIDED AND DISCUSSED. CM CALLED [facility] IN [place], , SPOKE TO GELACIO CALZADA REGARDING SWING BED. GELACIO WILL RECEIVE REFERRAL AND SCREEN FOR ADMISSION. CM FAXED REFERRAL TO [facility] SWING BED UNIT AT [phone]. CM WAITING ADMISSION DETERMINATIONS FROM [facility] AND [facility] SWING BED UNIT. Vadim Pulliam, CASE MANAGEMENT Appended by Vadim Pulliam on 12/05/2018 10:36 MANAGER OF SUPPLY CHAIN: CM RECEIVED CALL FROM EUGENIA OF [facility], THEY ARE OUT OF NETWORK WITH PT'S INSURANCE, INFORMED CM THAT SHE FOUND OUT THAT PT WILL HAVE TO PAY A DAILY RATE OF $175 PER DAY TO ENTER ANY IN NETWORK SENIOR LIVING FACILITY. PT NOTIFIED AND IS STILL IN AGREEMENT WITH REFERRAL TO [facility] SWING BED UNIT, NOT A SENIOR LIVING FACILITY AT THIS TIME. CM WAITING ADMISSION DETERMINATION FROM [facility] SWING BED UNIT. VADIM PULLIAM, CASE MANAGEMENT DCP- Discharge Planning Updated by [id number]: Vadim Pulliam on 12/04/18 3:[address] Patient Name: KUSUM SHAY Encounter No: [id number] : 1960 Primary Insurance: [facility] MEDICARE SOLUTIONS Anticipated DC Date: Planned Disposition: SENIOR LIVING FACILITY External Planned Provider: [facility], MEDICARE SKILLED BED DCP follow-up note: CM RECEIVED CALL FROM VISHNU [facility] WHO ADVISED THEY WILL NOT ACCEPT PT. CM SPOKE TO FERN OF INPATIENT REHAB WHO INFORMED CM THAT PT IS TOO HIGH FUNCTIONING FOR INPATIENT REHAB. CM SPOKE TO PT IN ROOM, DISCUSSED DISCHARGE PLANNING AND OPTIONS. PT CANNOT DO WOUND CARE HIMSELF AND HAS NO TEACHABLE DIGITAL CARTOGRAPHIC TECHNICIAN AND HOME HEALTH WILL NOT DO DAILY WOUND CARE. PT WOULD LIKE TO EXPLORE SENIOR LIVING FOR SKILLED CARE LONG IT IS COVERED BY HIS INSURANCE. CHOICE LISTING PROVIDED, PT SIGNED CHOICE FOR 1. [facility] 2. [place] 3. [facility] 4. [facility]. CM CALLED [facility], , SPOKE TO JACQUELINE WHO REPORTS THEY CAN CONTACT INSURANCE TO ENSURE SERVICES WOULD BE COVERED. CM FAXED REFERRAL TO [facility] AT [phone]. CM WAITING INSURANCE AUTHORIZATION FOR SKILLED SERVICES WELL ADMISSION DETERMINATION FROM [facility]. Vadim Pulliam, CASE MANAGEMENT Appended by Vadim Pulliam on 12/04/2018 16:27 MANAGER OF SUPPLY CHAIN: CM RECEIVED CALL FROM PONCHO OF [facility], THEY WILL NOT ACCEPT, RECOMMENDED HOME WITH HOME HEALTH. CM PLEADED PT'S CASE HE HAS NO ONE AT HOME TO ASSIST, CANNOT DO THE WOUND CARE HIMSELF AND HOME HEALTH WILL NOT COME OUT DAILY. QUAPAW'S ANSWER CONTINUES TO BE NO. CM CALLED AND SPOKE TO CLARE AT [facility] AND CLARE REPORTED THAT PT WILL HAVE A COPAY AND THAT PT WILL NOT KNOW UNTIL AFTER THE CORRECTION STAY OF EXACTLY HOW MUCH HE OWES. PT HAS ALREADY INFORMED CM THAT HE WILL NOT CONSIDER GOING SOMEWHERE WITH COPAY. CM CALLED [facility], , SPOKE TO EUGENIA WHO WILL CHECK WITH ADMISSIONS STAFF AND INSURANCE COMPANY TO SEE IF THEY COULD ADMIT FOR WOUND CARE ONLY. CM FAXED FACE SHEET TO [facility] AT [phone], CM WAITING DETERMINATION ON ADMISSION AND INSURANCE FROM [facility]. VADIM PULLIAM CASE MANAGEMENT DCP- Discharge Planning Updated by [id number]: Vadim Pulliam on 12/04/18 12:[address] Patient Name: KUSUM SHAY Encounter No: [id number] : 1960 Primary Insurance: [facility] MEDICARE SOLUTIONS Anticipated DC Date: 12-04-2018 Planned Disposition: Mc[facility] Facility External Planned Provider: [facility], MEDICARE SKILLED BED DCP follow-up note: CM FAXED REFERRAL UDPATE TO [facility] AT [phone]. CM WAITING INSURANCE AUTHORIZATION FOR SKILLED SERVICES WELL ADMISSION DETERMINATION FROM [facility]. EVELIO Hackett DCP- Discharge Planning Updated by [id number]: Vadim Pulliam on 12/03/18 9:[address] Patient Name: KUSUM SHAY Encounter No: [id number] : 1960 Primary Insurance: [facility] MEDICARE SOLUTIONS Anticipated DC Date: Planned Disposition: [facility] Provider: LARA GONSALEZ [place] Discharge Planning Comments: CM RECEIVED CALL FROM VISHNU OF [facility], , WHO ASKED FOR REFERRAL UPDATE TO BE FAXED. CM FAXED REFERRAL UPDATE TO LARA GONSALEZ AT [phone]. CM WAITING INSURANCE AUTHORIZATION FOR AIR INTERCEPT CONTROLLER ACUTE CARE SERVICES AT [facility]. CM TO FAX REFERRAL UPDATE TO LARA GONSALEZ, ON 12-03-18. Desulfurizer Hand: Vadim Pulliam DCP- Discharge Planning Updated by [id number]: Vadim Pulliam on 11/30/18 2:[address] Patient Name: KUSUM SHAY Admission Status: ER Accout number: [id number] Admission Date: 11-29-2018 : 1960 Admission Diagnosis:SHORTNESS OF BREATH Attending: GLENN SANDRA Current LOS: 1 Anticipated DC Date: Planned Disposition: [facility]USTODIAL ACUTE [facility] Primary Insurance: [facility] MEDICARE SOLUTIONS PLANNED EXTERNAL PROVIDER: BOBBY EDWARDS Discharge Planning Comments: CM RECEIVED CALL FROM KASHMIR OF [facility], , WHO INFORMED CM THAT [facility] REFUSED TO SEE PT AND WERE NOT DOING EVERY OTHER DAY DRESSING CHANGES WAS AGREED AT HOSPITAL DISCHARGE; [facility] IS NOT ABLE TO SEE PT FOR DAILY DRESSING CHANGES ANY LONGER AND COULD GO OUT EVERY OTHER DAY IF NEEDED. PT HAS NO TEACHABLE CAREGIVER IN THE HOME. CM RECEIVED ORDERS FOR INPATIENT REHAB PRESCREENING, MET WITH PT IN ROOM TO DISCUSS DISCHARGE PLANNING AND NEEDS. PT REPORTS LIVING AT HOME INDEPENDENTLY AND ALONE. PT HAS CANE AND HOSPITAL BED WITH NO MEDICAL EQUIPMENT PROVIDER PREFERNCE. PT HAS [facility] FOR WOUND CARE AT HOME. CM DISCUSSED CALL FROM [facility] AND INABILITY TO DO DAILY DRESSING CHANGES AND THAT [facility], [facility] REFUSED TO ACCEPT PT. CM DISCUSSED AVAILABILITY OF REHAB SERVICES AND MEDICAL EQUIPMENT. CM DISCUSSED AVAILABILITY OF LTACH. PT REPORTS INABILITY TO DO THE DRESSING CHANGES HIMSELF AT HOME AND IS CONCERNED ABOUT WOUND CARE AT THIS TIME. PT WOULD CONSIDER INPATIENT REHAB OR AIR INTERCEPT CONTROLLER ACUTE CARE LONG COVERED BY INSURANCE. PT WOULD GO TO [facility] BUT WILL NOT CONSIDER GOING TO [place] FOR LTACH SERVICES. PT WILL NOT CONSIDER GOING TO A SENIOR LIVING FACILITY AT ALL. CM PROVIDED HOSPITAL JANITOR SUPERVISOR AND CM CONTACT PHONE NUMBER. CM NOTIFIED SUDEEP MCGEE AND RECEIVED LTACH EVALUATION ORDER. CM SPOKE TO FERN OF INPATIENT REHAB AT [place], THEY WILL BE FOLLOWING AND WILL HAVE TO SUBMIT TO [facility] MEDICARE FOR AUTHORIZATION WHEN ALL THERAPY EVALUATIONS ARE COMPLETED AND DOCUMENTED. CM CALLED [facility], , SPOKE TO VISHNU WHO INFORMED CM THAT PT HAD PREVIOUSLY BEEN REFERRED DURING PREVIOUS HOSPITAL STAY AND HAD BEEN APPROVED BY INSURANCE BUT CHOSE TO GO HOME WITH HOME HEALTH. CM PROVIDED REFERRAL INFORMATION AND NOTIFIED OF PT'S CHANGE OF MIND. CM FAXED REFERRAL TO [facility] AT [phone]. VISHNU INFORMED CM THAT THEY WILL NOT HAVE ANYTHING FROM INSURANCE PRIOR TO MONDAY AND ASKED CM TO FAX UPDATE ON MONDAY. CM WAITING INSURANCE AUTHORIZATION FOR AIR INTERCEPT CONTROLLER ACUTE CARE SERVICES AT [facility]. CM TO FAX REFERRAL UPDATE TO [facility], ON 12-03-18. Desulfurizer Hand: Vadim Pulliam DCPIA - Discharge Planning Initial Assessment Updated by QIAN: Vadim Pulliam on 11/30/18 3:01 pm * Is the patient Alert and Oriented? Yes * How many steps to enter\exit or inside your home? 6 W / RAIL * PCP DR. RODRIGUEZ (NOT YET SEEN) DR. IZQUIERDO SIGNING [facility] ORDERS UNTIL DR. RODRIGUEZ ADMITS NEW PATIENT * Pharmacy [facility] IN [place] * Preadmission Environment Home Alone * ADLs Independent * Equipment Cane Hospital Bed * Other Equipment NO MEDICAL EQUIPMENT PROVIDER PREFERENCE * List name and contact numbers for known caregivers / representatives who currently or will assist patient after discharge: NESHA KHALIL IN LAW, SUSANA CROWELL, * Verbal permission to speak to the caregivers and representatives has been obtained from the patient. N/A * Community resources currently utilized Home Health * Please name any agencies selected above. [facility], NURSING / WOUND CARE * Additional services required to return to the preadmission environment? Yes * Can the patient safely return to the preadmission environment? Yes * Has this patient been hospitalized within the prior 30 days at any hospital? Yes Coverage Notice Reviewer: [id number] Chandrika Pulliam Notice Issued Date-Time: 12/03/2018 14:55 Notice Type: Patient Choice Letter Notice Delivered To: Patient Relationship to Patient: Mushroom Press Operator Name: Delivery Method: HAND - Hand Delivered Alexandra Days: Prior Verbal Notification: Recipient Understood Notice: Yes Recipient Signature: Yes Med Rec Note Co-signed by Attending: Coverage Notice Comment: 1. ZEKE 2. JERO WILLS 3. LY 4. MYRON HAYWARD Reviewer: [id number] Chandrika Pulliam Notice Issued Date-Time: 12/05/2018 10:20 Notice Type: IM Discharge Notice Notice Delivered To: Patient Relationship to Patient: Mushroom Press Operator Name: Delivery Method: HAND - Hand Delivered Alexandra Days: Prior Verbal Notification: Recipient Understood Notice: Yes Recipient Signature: Yes Med Rec Note Co-signed by Attending: Coverage Notice Comment: Last DP export: 12/05/18 9:37 am Patient Name: KUSUM SHAY Page [id number] at 1346 All edits/amendments must be made on the electronic document DICTATION DATE: 12/05/18 1345 ELECTRICAL ASSEMBLY TECHNICIAN: ROSELYN 12/05/18 1345 RPT#: [id number] DC DATE: STATUS: ADM IN [facility] [address] [place] [address] END OF REPORT
--- NOTE | 2018-12-05 13:55 | MORECARE ---
CASE MANAGEMENT DISCHARGE SUMMARY PATIENT: KUSUM SHAY UNIT: [id number] ADM DATE: 11/29/18 AGE: 58 : 62 SEX: M ROOM/BED: D.2132 AUTHOR: EDEL,DOC PHYSICIAN: REFERRING PHYSICIAN: GLENN SANDRA MD DATE OF SERVICE: 12/05/18 Discharge Plan Patient Name: KUSUM SHAY Facility: [facility]:[place] : 1960 Planned Disposition: Swing Bed (Medicare Approved) Anticipated Discharge Date: 12/05/18 Discharge Date: Expected LOS: 6 Initial Reviewer: [id number] Initial Review Date: 11/29/2018 Generated: 12/05/18 2:55 pm Comments DCP- Discharge Planning Updated by [id number]: Vadim Pulliam on 12/05/18 12:[address] Patient Name: KUSUM SHAY Encounter No: [id number] : 1960 Primary Insurance: [facility] [employer] Anticipated DC Date: 12-05-2018 Planned Disposition: Swing Bed (Medicare Approved) External Planned Provider: :[facility], GROUP HOME SWING BED DCP follow-up note: CM RECEIVED CALL FROM GELACIO OF [facility], WHO INFORMED CM THAT DR. REYNA HAS ACCEPTED PT TO THE SWING BED UNIT AT [facility]. THEY NEED PT THERE SOON POSSIBLE TODAY AND BEFORE 5PM. CM NOTIFIED SUDEEP NEAL. CM NOTIFIED PT WHO WAS CONCERNED OF HIS COPAY. CM EXPLAINED THAT PT'S COPAY IS THE SAME IT WOULD HAVE BEEN AT THE NURSING FACILITY. PT NOT HAPPY ABOUT THE COPAY BUT ACCEPTED THAT HE HAS NO ONE AT HOME TO ASSIST AND HOME HEALTH WILL NOT COME EVERY DAY. PT REPORTS NOT WANTING TO PAY A COPAY FOR ANY OF HIS CARE. CM EXPLAINED THAT HIS INSURANCE WAS ELECTED BY PATIENT, NO ONE ELSE AND PROVIDED PT WITH HIS CUSTOMER SERVICES NUMBER FOR INSURANCE. PT THOUGHT ABOUT HIS OPTIONS AND INFORMED CM THAT HE WILL GO TO [facility] AND WORK OUT THE BILL LATER. PT DID NOT WANT AMBULANCE TRANSPORT HE REPORTS "I ALREADY HAVE AMBULANCE BILLS AND IT IS HUNDREDS OF DOLLARS." PT CALLED A FRIEND WHO WILL TRANSPORT PT TO [facility] AND WILL BE HERE WITHIN THE HOUR. CM VERIFIED WITH CM DIRECTOR SHAKIRA THAT PT DOES NOT REQUIRE AMBUALANCE TRANSPORT TO LOWER LEVEL OF CARE. CM NOTIFIED BEDSIDE NURSE AND TITLE INSURANCE AGENT NURSE. CM FAXED DISCHARGE INFORMATION TO [phone]. NURSE REPORT TO BE CALLED TO [facility] SWING BED UNIT AT [phone]. PT TO TRANSPORT VIA PRIVATE AUTO, FRIEND DRIVING. EVELIO Hackett DCP- Discharge Planning Updated by [id number]: Vadim Pulliam on 12/05/18 9:[address] Patient Name: KUSUM SHAY Encounter No: [id number] : 1960 Primary Insurance: [facility] [employer] [employer] Anticipated DC Date: 12-05-2018 Planned Disposition: Swing Bed (Medicare Approved) External Planned Provider: [facility] DCP follow-up note: CM RECEIVED ORDER FOR LTACH PLACEMENT. PT HAS BEEN DECLINED BY LTACH. CM SPOKE TO PT IN ROOM, UPDATED THAT HE HAD BEEN DECLINED BY [facility] ACUTE [facility], [facility], [facility] INFORMED THAT PT WILL HAVE COPAY THAT PT IS NOT WILLING TO PAY, [facility] IS STILL CONSIDERING PT. CM DISCUSSED SWING BED NURSING SERVICES AT [facility] IN [place]. PT REPORTS AGREEMENT WITH THIS PLAN. IMPORTANT MESSAGE FROM MEDICARE PROVIDED AND DISCUSSED. CM CALLED [facility] IN [place], , SPOKE TO GELACIO CALZADA REGARDING SWING BED. GELACIO WILL RECEIVE REFERRAL AND SCREEN FOR ADMISSION. CM FAXED REFERRAL TO [facility] SWING BED UNIT AT [phone]. CM WAITING ADMISSION DETERMINATIONS FROM [facility] GROUP HOME [facility] AND [facility] SWING BED UNIT. EVELIO Hackett MANAGEMENT Appended by Vadim Pulliam on 12/05/2018 10:36 LYE TREATER: CM RECEIVED CALL FROM EUGENIA OF [facility], THEY ARE OUT OF NETWORK WITH PT'S INSURANCE, INFORMED CM THAT SHE FOUND OUT THAT PT WILL HAVE TO PAY A DAILY RATE OF $175 PER DAY TO ENTER ANY IN NETWORK GROUP HOME FACILITY. PT NOTIFIED AND IS STILL IN AGREEMENT WITH REFERRAL TO [facility] SWING BED UNIT, NOT A GROUP HOME FACILITY AT THIS TIME. CM WAITING ADMISSION DETERMINATION FROM [facility] SWING BED UNIT. VADIM HERACLIO, CASE MANAGEMENT DCP- Discharge Planning Updated by [id number]: Vadim Pulliam on 12/04/18 3:[address] Patient Name: KUSUM SHAY Encounter No: [id number] : 1960 Primary Insurance: [facility] [employer] Anticipated DC Date: Planned Disposition: GROUP HOME FACILITY External Planned Provider: [facility], MEDICARE SKILLED BED DCP follow-up note: CM RECEIVED CALL FROM [facility] WHO ADVISED THEY WILL NOT ACCEPT PT. CM SPOKE TO FERN OF INPATIENT REHAB WHO INFORMED CM THAT PT IS TOO HIGH FUNCTIONING FOR INPATIENT REHAB. CM SPOKE TO PT IN ROOM, DISCUSSED DISCHARGE PLANNING AND OPTIONS. PT CANNOT DO WOUND CARE HIMSELF AND HAS NO TEACHABLE JACK SPOOLER TENDER AND HOME HEALTH WILL NOT DO DAILY WOUND CARE. PT WOULD LIKE TO EXPLORE GROUP HOME FOR SKILLED CARE LONG IT IS COVERED BY HIS INSURANCE. CHOICE LISTING PROVIDED, PT SIGNED CHOICE FOR 1. [facility] 2. [place] 3. [facility] 4. [facility]. CM CALLED [facility], , SPOKE TO JACQUELINE WHO REPORTS THEY CAN CONTACT INSURANCE TO ENSURE SERVICES WOULD BE COVERED. CM FAXED REFERRAL TO [facility] AT [phone]. CM WAITING INSURANCE AUTHORIZATION FOR SKILLED SERVICES WELL ADMISSION DETERMINATION FROM [facility]. Vadim Pulliam, CASE MANAGEMENT Appended by Vadim Pulliam on 12/04/2018 16:27 LYE TREATER: CM RECEIVED CALL FROM PONCHO OF [facility], THEY WILL NOT ACCEPT, RECOMMENDED HOME WITH HOME HEALTH. CM PLEADED PT'S CASE HE HAS NO ONE AT HOME TO ASSIST, CANNOT DO THE WOUND CARE HIMSELF AND HOME HEALTH WILL NOT COME OUT DAILY. [facility]'S ANSWER CONTINUES TO BE NO. CM CALLED AND SPOKE TO CLARE AT [facility] AND CLARE REPORTED THAT PT WILL HAVE A COPAY AND THAT PT WILL NOT KNOW UNTIL AFTER THE CARE HOME STAY OF EXACTLY HOW MUCH HE OWES. PT HAS ALREADY INFORMED CM THAT HE WILL NOT CONSIDER GOING SOMEWHERE WITH COPAY. CM CALLED [facility], , SPOKE TO EUGENIA WHO WILL CHECK WITH ADMISSIONS STAFF AND INSURANCE COMPANY TO SEE IF THEY COULD ADMIT FOR WOUND CARE ONLY. CM FAXED FACE SHEET TO [facility] AT [phone], CM WAITING DETERMINATION ON ADMISSION AND INSURANCE FROM [facility]. VADIM PULLIAM CASE MANAGEMENT DCP- Discharge Planning Updated by [id number]: Vadim Pulliam on 12/04/18 12:[address] Patient Name: KUSUM SHAY Encounter No: [id number] : 1960 Primary Insurance: [facility] [employer] [employer] Anticipated DC Date: 12-04-2018 Planned Disposition: Jail Facility External Planned Provider: [facility], MEDICARE SKILLED BED DCP follow-up note: CM FAXED REFERRAL [place] TO [facility] AT [phone]. CM WAITING INSURANCE AUTHORIZATION FOR SKILLED SERVICES WELL ADMISSION DETERMINATION FROM [facility]. EVELIO Hackett DCP- Discharge Planning Updated by [id number]: Vadim Pulliam on 12/03/18 9:[address] Patient Name: KUSUM SHAY Encounter No: [id number] : 1960 Primary Insurance: [facility] [employer] Anticipated DC Date: Planned Disposition: [facility] Provider: BOBBY EDWARDS Discharge Planning Comments: CM RECEIVED CALL FROM [facility], , WHO ASKED FOR REFERRAL UPDATE TO BE FAXED. CM FAXED REFERRAL UPDATE TO [facility] AT [phone]. CM WAITING INSURANCE AUTHORIZATION FOR [facility] ACUTE CARE SERVICES AT [facility]. CM TO FAX REFERRAL UPDATE TO [facility], ON 12-03-18. Pegger: Vadim Pulliam DCP- Discharge Planning Updated by [id number]: Vadim Pulliam on 11/30/18 2:[address] Patient Name: KUSUM SHAY Admission Status: ER Accout number: [id number] Admission Date: 11-29-2018 : 1960 Admission Diagnosis:SHORTNESS OF BREATH Attending: GLENN SANDRA Current LOS: 1 Anticipated DC Date: Planned Disposition: [facility] Primary Insurance: [facility] [employer] [employer] PLANNED EXTERNAL PROVIDER: BOBBY EDWARDS Discharge Planning Comments: CM RECEIVED CALL FROM [facility], , WHO INFORMED CM [facility] AND WERE NOT DOING EVERY OTHER DAY DRESSING CHANGES WAS AGREED AT HOSPITAL DISCHARGE; [facility] IS NOT ABLE TO SEE PT FOR DAILY DRESSING CHANGES ANY LONGER AND COULD GO OUT EVERY OTHER DAY IF NEEDED. PT HAS NO TEACHABLE CAREGIVER IN THE HOME. CM RECEIVED ORDERS FOR INPATIENT REHAB PRESCREENING, MET WITH PT IN ROOM TO DISCUSS DISCHARGE PLANNING AND NEEDS. PT REPORTS LIVING AT HOME INDEPENDENTLY AND ALONE. PT HAS CANE AND HOSPITAL BED WITH NO MEDICAL EQUIPMENT PROVIDER PREFERNCE. PT HAS [employer] FOR WOUND CARE AT HOME. CM DISCUSSED CALL FROM [facility] AND INABILITY TO DO DAILY DRESSING CHANGES AND THAT [facility] REFUSED TO ACCEPT PT. CM DISCUSSED AVAILABILITY OF REHAB SERVICES AND MEDICAL EQUIPMENT. CM DISCUSSED AVAILABILITY OF LTACH. PT REPORTS INABILITY TO DO THE DRESSING CHANGES HIMSELF AT HOME AND IS CONCERNED ABOUT WOUND CARE AT THIS TIME. PT WOULD CONSIDER INPATIENT REHAB OR [facility] CARE LONG COVERED BY INSURANCE. PT WOULD GO TO [facility] BUT WILL NOT CONSIDER GOING TO [place] FOR LTACH SERVICES. PT WILL NOT CONSIDER GOING TO A GROUP HOME FACILITY AT ALL. CM PROVIDED HOSPITAL SQUAD BOSS AND CM CONTACT PHONE NUMBER. CM NOTIFIED SUDEEP MCGEE AND RECEIVED LTACH EVALUATION ORDER. CM SPOKE TO FERN OF INPATIENT REHAB AT [place], THEY WILL BE FOLLOWING AND WILL HAVE TO SUBMIT TO MANAGED MEDICARE FOR AUTHORIZATION WHEN ALL THERAPY EVALUATIONS ARE COMPLETED AND DOCUMENTED. CM CALLED [facility], , SPOKE TO VISHNU WHO INFORMED CM THAT PT HAD PREVIOUSLY BEEN REFERRED DURING PREVIOUS HOSPITAL STAY AND HAD BEEN APPROVED BY INSURANCE BUT CHOSE TO GO HOME WITH HOME HEALTH. CM PROVIDED REFERRAL INFORMATION AND NOTIFIED OF PT'S CHANGE OF MIND. CM FAXED REFERRAL TO [facility] AT [phone]. VISHNU INFORMED CM THAT THEY WILL NOT HAVE ANYTHING FROM INSURANCE PRIOR TO MONDAY AND ASKED CM TO FAX UPDATE ON MONDAY. CM WAITING INSURANCE AUTHORIZATION FOR [facility] ACUTE CARE SERVICES AT [facility]. CM TO FAX REFERRAL UPDATE TO [facility], ON 12-03-18. Pegger: Vadim Pulliam DCPIA - Discharge Planning Initial Assessment Updated by [id number]: Vadim Pulliam on 11/30/18 3:01 pm * Is the patient Alert and Oriented? Yes * How many steps to enter\\exit or inside your home? 6 W / RAIL * PCP DR. RODRIGUEZ (NOT YET SEEN) DR. IZQUIERDO SIGNING [facility] ORDERS UNTIL DR. RODRIGUEZ ADMITS NEW PATIENT * Pharmacy [facility] * Preadmission Environment Home Alone * ADLs Independent * Equipment [facility] Hospital Bed * Other Equipment NO MEDICAL EQUIPMENT PROVIDER PREFERENCE * List name and contact numbers for known caregivers / representatives who currently or will assist patient after discharge: NESHA KHALIL IN LAW, SUSANA CROWELL, * Verbal permission to speak to the caregivers and representatives has been obtained from the patient. N/A * Community resources currently utilized Home Health * Please name any agencies selected above. [facility], NURSING / WOUND CARE * Additional services required to return to the preadmission environment? Yes * Can the patient safely return to the preadmission environment? Yes * Has this patient been hospitalized within the prior 30 days at any hospital? Yes Coverage Notice Reviewer: [id number] Pulliam Notice Issued Date-Time: 12/03/2018 14:55 Notice Type: Patient Choice Letter Notice Delivered To: Patient Relationship to Patient: Swift Tender Name: Delivery Method: HAND - Hand Delivered Alexandra Days: Prior Verbal Notification: Recipient Understood Notice: Yes Recipient Signature: Yes Med Rec Note Co-signed by Attending: Coverage Notice Comment: 1. [facility] 2. [facility] 3. [facility] Reviewer: [id number] Chandrika Pulliam Notice Issued Date-Time: 12/05/2018 10:20 Notice Type: IM Discharge Notice Notice Delivered To: Patient Relationship to Patient: Swift Tender Name: Delivery Method: HAND - Hand Delivered Alexandra Days: Prior Verbal Notification: Recipient Understood Notice: Yes Recipient Signature: Yes Med Rec Note Co-signed by Attending: Coverage Notice Comment: Last DP export: 12/05/18 12:46 pm Patient Name: KUSUM SHAY Page [id number] at 1355 All edits/amendments must be made on the electronic document DICTATION DATE: 12/05/18 3479 WOOD SCRAP HANDLER: ROSELYN 12/05/18 1357 RPT#: [id number] [place] DATE: STATUS: ADM IN [facility] [address] [place] [address] END OF REPORT
--- NOTE | 2018-12-05 14:51 | NUR ---
OT NOTE: PT OBSERVED AMULATING INDEPENDENTLY THROUGHOUT FACILITY. PT STATED THAT HE IS FEELING BETTER. REPORTS THAT PAIN IS MUCH IMPROVED. INDEP WITH MOBILITY, TRANSFERS, AND BED MOB. ROMARIO MARTINS, OTR/L
--- NOTE | 2018-12-05 17:29 | NUR ---
I have reviewed this patient and I concur with the Shift Assessment completed by the Licensed Practical Nurse today this shift.
--- NOTE | 2018-12-06 09:25 | MORECARE ---
CASE MANAGEMENT DISCHARGE SUMMARY PATIENT: KUSUM SHAY UNIT: [id number] ADM DATE: 11/29/18 AGE: 58 : 62 SEX: M ROOM/BED: D.2132 AUTHOR: EDEL,DOC PHYSICIAN: REFERRING PHYSICIAN: GLENN SANDRA MD DATE OF SERVICE: 12/06/18 Discharge Plan Patient Name: KUSUM SHAY Facility: [facility]:[place] : 1960 Planned Disposition: Swing Bed (Medicare Approved) Anticipated Discharge Date: 12/05/18 Discharge Date: 12/05/2018 Expected LOS: 6 Initial Reviewer: [id number] Initial Review Date: 11/29/2018 Generated: 12/06/18 10:24 am Comments DCP- Discharge Planning Updated by [id number]: Vadim Pulliam on 12/05/18 12:[address] Patient Name: KUSUM SHAY Encounter No: [id number] : 1960 Primary Insurance: [facility] MEDICARE SOLUTIONS Anticipated DC Date: 12-05-2018 Planned Disposition: Swing Bed (Medicare Approved) External Planned Provider: :[facility], PENITENTIARY SWING BED DCP follow-up note: CM RECEIVED CALL FROM GELACIO OF [facility], WHO INFORMED CM THAT DR. REYNA HAS ACCEPTED PT TO THE SWING BED UNIT AT [facility]. THEY NEED PT THERE SOON POSSIBLE TODAY AND BEFORE 5PM. CM NOTIFIED SUDEEP NEAL. CM NOTIFIED PT WHO WAS CONCERNED OF HIS COPAY. CM EXPLAINED THAT PT'S COPAY IS THE SAME IT WOULD HAVE BEEN AT THE NURSING FACILITY. PT NOT HAPPY ABOUT THE COPAY BUT ACCEPTED THAT HE HAS NO ONE AT HOME TO ASSIST AND HOME HEALTH WILL NOT COME EVERY DAY. PT REPORTS NOT WANTING TO PAY A COPAY FOR ANY OF HIS CARE. CM EXPLAINED THAT HIS INSURANCE WAS ELECTED BY PATIENT, NO ONE ELSE AND PROVIDED PT WITH HIS CUSTOMER SERVICES NUMBER FOR INSURANCE. PT THOUGHT ABOUT HIS OPTIONS AND INFORMED CM THAT HE WILL GO TO [facility] AND WORK OUT THE BILL LATER. PT DID NOT WANT AMBULANCE TRANSPORT HE REPORTS "I ALREADY HAVE AMBULANCE BILLS AND IT IS HUNDREDS OF DOLLARS." PT CALLED A FRIEND WHO WILL TRANSPORT PT TO [facility] AND WILL BE HERE WITHIN THE HOUR. CM VERIFIED WITH CM DIRECTOR DREAMER THAT PT DOES NOT REQUIRE AMBUALANCE TRANSPORT TO LOWER LEVEL OF CARE. CM NOTIFIED BEDSIDE NURSE AND FARMER AND GRAZIER NURSE. CM FAXED DISCHARGE INFORMATION TO [phone]. NURSE REPORT TO BE CALLED TO [facility] SWING BED UNIT AT [phone]. PT TO TRANSPORT VIA PRIVATE AUTO, FRIEND DRIVING. EVELIO Hackett DCP- Discharge Planning Updated by [id number]: Vadim Pulliam on 12/05/18 9:[address] Patient Name: KUSUM SHAY Encounter No: [id number] : 1960 Primary Insurance: [facility] MEDICARE SOLUTIONS Anticipated DC Date: 12-05-2018 Planned Disposition: Swing Bed (Medicare Approved) External Planned Provider: [facility] DCP follow-up note: CM RECEIVED ORDER FOR LTACH PLACEMENT. PT HAS BEEN DECLINED BY LTACH. CM SPOKE TO PT IN ROOM, UPDATED THAT HE HAD BEEN DECLINED BY [facility] AC[facility], [facility], [facility] INFORMED THAT PT WILL HAVE COPAY THAT PT IS NOT WILLING TO PAY, [facility] IS STILL CONSIDERING PT. CM DISCUSSED SWING BED NURSING SERVICES AT [facility] IN [place]. PT REPORTS AGREEMENT WITH THIS PLAN. IMPORTANT MESSAGE FROM MEDICARE PROVIDED AND DISCUSSED. CM CALLED [facility] IN [place], , SPOKE TO GELACIO CALZADA REGARDING SWING BED. GELACIO WILL RECEIVE REFERRAL AND SCREEN FOR ADMISSION. CM FAXED REFERRAL TO [facility] SWING BED UNIT AT [phone]. CM WAITING ADMISSION DETERMINATIONS FROM [facility] AND [facility] SWING BED UNIT. Vadim Pulliam CASE MANAGEMENT Appended by Vadim Pulliam on 12/05/2018 10:36 COMMANDING OFFICER GARAGE: CM RECEIVED CALL FROM EUGENIA [facility] PENITENTIARY [facility], THEY ARE OUT OF NETWORK WITH PT'S INSURANCE, INFORMED CM THAT SHE FOUND OUT THAT PT WILL HAVE TO PAY A DAILY RATE OF $175 PER DAY TO ENTER ANY IN NETWORK PENITENTIARY FACILITY. PT NOTIFIED AND IS STILL IN AGREEMENT WITH REFERRAL TO [facility] SWING BED UNIT, NOT A PENITENTIARY FACILITY AT THIS TIME. CM WAITING ADMISSION DETERMINATION FROM [facility] SWING BED UNIT. VADIM HERACLIO, CASE MANAGEMENT DCP- Discharge Planning Updated by [id number]: Vadim Pulliam on 12/04/18 3:[address] Patient Name: KUSUM SHAY Encounter No: [id number] : 1960 Primary Insurance: [facility] MEDICARE SOLUTIONS Anticipated DC Date: Planned Disposition: PENITENTIARY FACILITY External [facility] DCP follow-up note: CM RECEIVED CALL FROM VISHNU [facility] WHO ADVISED THEY WILL NOT ACCEPT PT. CM SPOKE TO FERN OF INPATIENT REHAB WHO INFORMED CM THAT PT IS TOO HIGH FUNCTIONING FOR INPATIENT REHAB. CM SPOKE TO PT IN ROOM, DISCUSSED DISCHARGE PLANNING AND OPTIONS. PT CANNOT DO WOUND CARE HIMSELF AND HAS NO TEACHABLE SCHOOL OCCUPATIONAL THERAPIST AND HOME HEALTH WILL NOT DO DAILY WOUND CARE. PT WOULD LIKE TO EXPLORE PENITENTIARY FOR SKILLED CARE LONG IT IS COVERED BY HIS INSURANCE. CHOICE LISTING PROVIDED, PT SIGNED CHOICE FOR 1. [facility] 2. [facility] 3. [facility] 4. [facility]. CM CALLED [facility], , SPOKE TO JACQUELINE WHO REPORTS THEY CAN CONTACT INSURANCE TO ENSURE SERVICES WOULD BE COVERED. CM FAXED REFERRAL TO [facility] AT [phone]. CM WAITING INSURANCE AUTHORIZATION FOR SKILLED SERVICES WELL ADMISSION DETERMINATION FROM [facility]. Vadim Pulliam, CASE MANAGEMENT Appended by Vadim Pulliam on 12/04/2018 16:27 COMMANDING OFFICER GARAGE: CM RECEIVED CALL FROM PONCHO OF [facility], THEY WILL NOT ACCEPT, RECOMMENDED HOME WITH HOME HEALTH. CM PLEADED PT'S CASE HE HAS NO ONE AT HOME TO ASSIST, CANNOT DO THE WOUND CARE HIMSELF AND HOME HEALTH WILL NOT COME OUT DAILY. [facility] ANSWER CONTINUES TO BE NO. CM CALLED AND SPOKE TO CLARE AT [facility] AND CLARE REPORTED THAT PT WILL HAVE A COPAY AND THAT PT WILL NOT KNOW UNTIL AFTER THE INTERMEDIATE STAY OF EXACTLY HOW MUCH HE OWES. PT HAS ALREADY INFORMED CM THAT HE WILL NOT CONSIDER GOING SOMEWHERE WITH COPAY. CM CALLED [facility], , SPOKE TO EUGENIA WHO WILL CHECK WITH ADMISSIONS STAFF AND INSURANCE COMPANY TO SEE IF THEY COULD ADMIT FOR WOUND CARE ONLY. CM FAXED FACE SHEET TO [facility] AT [phone], CM WAITING DETERMINATION ON ADMISSION AND INSURANCE FROM [facility]. VADIM PULLIAM CASE MANAGEMENT DCP- Discharge Planning Updated by [id number]: Vadim Pulliam on 12/04/18 12:[address] Patient Name: KUSUM SHAY Encounter No: [id number] : 1960 Primary Insurance: [facility] MEDICARE SOLUTIONS Anticipated DC Date: 12-04-2018 Planned Disposition: Longterm Facility External Planned Provider[facility] SKILLED BED DCP follow-up note: CM FAXED REFERRAL UDPATE TO [facility] AT [phone]. CM WAITING INSURANCE AUTHORIZATION FOR SKILLED SERVICES WELL ADMISSION DETERMINATION FROM [facility]. Vadim Pulliam CASE LEIGHANN DCP- Discharge Planning Updated by [id number]: Vadim Pulliam on 12/03/18 9:[address] Patient Name: KUSUM SHAY Encounter No: [id number] : 1960 Primary Insurance: [facility] MEDICARE SOLUTIONS Anticipated DC Date: Planned Disposition: PHOTO MASK PROCESSOR ACUTE [facility] Provider: BOBBY EDWARDS Discharge Planning Comments: CM RECEIVED CALL FROM [facility], , WHO ASKED FOR REFERRAL UPDATE TO BE FAXED. CM FAXED REFERRAL UPDATE TO [facility] AT [phone]. CM WAITING INSURANCE AUTHORIZATION FOR SENIOR LIVING ACUTE CARE SERVICES AT [facility]. CM TO FAX REFERRAL UPDATE TO [facility], ON 12-03-18. Toddler Caregiver: Vadim Pulliam DCP- Discharge Planning Updated by [id number]: Vadim Pulliam on 11/30/18 2:[address] Patient Name: KUSUM SHAY Admission Status: ER Accout number: [id number] Admission Date: 11-29-2018 : 1960 Admission Diagnosis:SHORTNESS OF BREATH Attending: GLENN SANDRA Current LOS: 1 Anticipated DC Date: Planned Disposition: SENIOR LIVING ACUTE [facility] Primary Insurance: [facility] MEDICARE SOLUTIONS PLANNED EXTERNAL PROVIDER: BOBBY EDWARDS Discharge Planning Comments: CM RECEIVED CALL FROM [facility], , WHO INFORMED CM [facility] AND WERE NOT DOING EVERY OTHER DAY DRESSING CHANGES WAS AGREED AT HOSPITAL DISCHARGE; [facility] IS NOT ABLE TO SEE PT FOR DAILY DRESSING CHANGES ANY LONGER AND COULD GO OUT EVERY OTHER DAY IF NEEDED. PT HAS NO TEACHABLE CAREGIVER IN THE HOME. CM RECEIVED ORDERS FOR INPATIENT REHAB PRESCREENING, MET WITH PT IN ROOM TO DISCUSS DISCHARGE PLANNING AND NEEDS. PT REPORTS LIVING AT HOME INDEPENDENTLY AND ALONE. PT HAS CANE AND HOSPITAL BED WITH NO MEDICAL EQUIPMENT PROVIDER PREFERNCE. PT HAS [employer] FOR WOUND CARE AT HOME. CM DISCUSSED CALL FROM [facility] AND INABILITY TO DO DAILY DRESSING CHANGES AND THAT [facility] REFUSED TO ACCEPT PT. CM DISCUSSED AVAILABILITY OF REHAB SERVICES AND MEDICAL EQUIPMENT. CM DISCUSSED AVAILABILITY OF LTACH. PT REPORTS INABILITY TO DO THE DRESSING CHANGES HIMSELF AT HOME AND IS CONCERNED ABOUT WOUND CARE AT THIS TIME. PT WOULD CONSIDER INPATIENT REHAB OR PHOTO MASK PROCESSOR ACUTE CARE LONG COVERED BY INSURANCE. PT WOULD GO TO [facility] BUT WILL NOT CONSIDER GOING TO [place] FOR LTACH SERVICES. PT WILL NOT CONSIDER GOING TO A PENITENTIARY FACILITY AT ALL. CM PROVIDED HOSPITAL COLOR STRAINING BAG WASHER AND CM CONTACT PHONE NUMBER. CM NOTIFIED SUDEEP MCGEE AND RECEIVED LTACH EVALUATION ORDER. CM SPOKE TO FERN OF INPATIENT REHAB AT [place], THEY WILL BE FOLLOWING AND WILL HAVE TO SUBMIT TO MANAGED MEDICARE FOR AUTHORIZATION WHEN ALL THERAPY EVALUATIONS ARE COMPLETED AND DOCUMENTED. CM CALLED [facility], , SPOKE TO VISHNU WHO INFORMED CM THAT PT HAD PREVIOUSLY BEEN REFERRED DURING PREVIOUS HOSPITAL STAY AND HAD BEEN APPROVED BY INSURANCE BUT CHOSE TO GO HOME WITH HOME HEALTH. CM PROVIDED REFERRAL INFORMATION AND NOTIFIED OF PT'S CHANGE OF MIND. CM FAXED REFERRAL TO [facility] AT [phone]. VISHNU INFORMED CM THAT THEY WILL NOT HAVE ANYTHING FROM INSURANCE PRIOR TO MONDAY AND ASKED CM TO FAX UPDATE ON MONDAY. CM WAITING INSURANCE AUTHORIZATION FOR PHOTO MASK PROCESSOR ACUTE CARE SERVICES AT [facility]. CM TO FAX REFERRAL UPDATE TO [facility], ON 12-03-18. Toddler Caregiver: Vadim Pulliam DCPIA - Discharge Planning Initial Assessment Updated by [id number]: Vadim Pulliam on 11/30/18 3:01 pm * Is the patient Alert and Oriented? Yes * How many steps to enter\\exit or inside your home? 6 W / RAIL * PCP DR. RODRIGUEZ (NOT YET SEEN) DR. IZQUIERDO [facility] ORDERS UNTIL DR. RODRIGUEZ ADMITS NEW PATIENT * [facility] [place] * Preadmission Environment Home Alone * ADLs Independent * Equipment [facility] * Other Equipment NO MEDICAL EQUIPMENT PROVIDER PREFERENCE * List name and contact numbers for known caregivers / representatives who currently or will assist patient after discharge: NESHA KHALIL IN LAW, SUSANA CROWELL, * Verbal permission to speak to the caregivers and representatives has been obtained from the patient. N/A * Community resources currently utilized Home Health * Please name any agencies selected above. [facility], NURSING / WOUND CARE * Additional services required to return to the preadmission environment? Yes * Can the patient safely return to the preadmission environment? Yes * Has this patient been hospitalized within the prior 30 days at any hospital? Yes Coverage Notice Reviewer: [id number] Chandrika Pulliam Notice Issued Date-Time: 12/03/2018 14:55 Notice Type: Patient Choice Letter Notice Delivered To: Patient Relationship to Patient: Snorkelling Instructor Name: Delivery Method: HAND - Hand Delivered Alexandra Days: Prior Verbal Notification: Recipient Understood Notice: Yes Recipient Signature: Yes Med Rec Note Co-signed by Attending: Coverage Notice Comment: 1. [facility] 2. [facility] 3. [facility] 4. [facility] Reviewer: [id number] Chandrika Pulliam Notice Issued Date-Time: 12/05/2018 10:20 Notice Type: IM Discharge Notice Notice Delivered To: Patient Relationship to Patient: Snorkelling Instructor Name: Delivery Method: HAND - Hand Delivered Alexandra Days: Prior Verbal Notification: Recipient Understood Notice: Yes Recipient Signature: Yes Med Rec Note Co-signed by Attending: Coverage Notice Comment: Last DP export: 12/05/18 12:55 pm Patient Name: KUSUM SHAY Page [id number] at 0925 All edits/amendments must be made on the electronic document DICTATION DATE: 12/06/18923 HEALTH INFORMATION MANAGERS: ROSELYN 12/06/18923 RPT#: [id number] DC DATE:12/05/18 STATUS: DIS IN [facility] [address] [place] [address] END OF REPORT
== END 2018-12-05 17:29 | disposition swing bed (61) | DRG 175 ==
LOC: D.ER 03:28 → D.EDHOLD 06:05 → D.M2 06:05
PROVIDERS: Family Medicine; ADMIT Internal Medicine Nephrology; ATTEND Internal Medicine Nephrology
DX: I26.99 Other pulmonary embolism without acute cor pulmonale (principal); M72.6 Necrotizing fasciitis; N17.9 Acute kidney failure, unspecified; L40.9 Psoriasis, unspecified; D50.9 Iron deficiency anemia, unspecified; Z87.891 Personal history of nicotine dependence; N49.2 Inflammatory disorders of scrotum

== ENCOUNTER 2018-12-21 18:05 | Inpatient (IN) | payer MEDICARE ==
[~2018-12-21] VITALS: Ht 182.9 cm; Wt 119.7 kg
[~2018-12-21 18:05] MED LIST changes: +ELIQUIS5 MG PO; +VIBRAMYCIN 100100 MG PO
[2018-12-21 19:36] LABS: BASOPHILS 0.8 % (0-2); EOSINOPHILS 5.2 % (0-7); HEMATOCRIT 34.2 % (42.0-54.0); HEMOGLOBIN 10.5 g/dL (13.5-17.5); IMMATURE GRANULOCYTES 0.2 % (0-5); LYMPHOCYTES 26.5 % (15-50); MCH 24.1 pg (26.0-34.0); MCHC 30.7 g/dL (31.0-37.0); MCV 78.6 fL (80.0-100.0); MEAN PLATELET VOLUME 9.3 fL (7.4-10.4); MONOCYTES 7.3 % (2-11); PLATELET COUNT 407 10x3/uL (130-400); RBC 4.35 10x6/uL (4.20-6.10); RDW 17.1 % (11.5-14.5); WBC 8.9 10x3/uL (4.8-10.8)
[2018-12-21 20:09] LABS: ALBUMIN 2.7 g/dL (3.4-5.0); ANION GAP 13.4 mmol/L (8-16); BILIRUBIN - TOTAL 0.12 mg/dL (0.2-1.3); CALCIUM 8.2 mg/dL (8.5-10.1); CARBON DIOXIDE 24.9 mmol/L (21.0-32.0); CREATININE - SERUM 1.3 mg/dL (0.6-1.3); MAGNESIUM - SERUM 1.8 mg/dL (1.8-2.4); POTASSIUM - SERUM 4.3 mmol/L (3.5-5.1); PROTEIN - SERUM 7.5 g/dL (6.4-8.2)
[2018-12-21 20:26] VITALS: BP 116/44
[2018-12-21] MEDS ORDERED: ROXICODONE15 MG PO (21:13)
[2018-12-21 22:17] VITALS: BP 137/87; BMI 35.9
[2018-12-22] VITALS: BP 137/87
--- NOTE | 2018-12-22 00:47 | NUR ---
ASSESSED AT THE BEGINNING OF THE SHIFT. PT WAS VERY UPSET AND WANTING TO HAVE A CARDIO DOCTOR CALLED. HE STATED THAT HE FEELS THAT HIS RESP CHANGES AND WEAKNESS IS DUE TO SOME TYPE OF CARDIO PROBLEMS. STATED HE FELT THIS WAY IN THE PAST AND ENDED UP WITH STENTS. VERY ANXIOUS. CONTACTED DR HODGE AND RECEIVED A ONE TIME ORDER FOR ATIVAN WHICH WAS GIVEN. ALSO A CONSULT FOR CARDIO. DR RANKIN WAS INTERNET PROJECT MANAGER AND NOTIFIED. PT WAS TOLD HE OR ONE OF HIS ASSOCIATES WOULD BE IN TO SEE HIM IN THE AM. AFTER RECEIVING ATIVAN FOR ANXIETY HE HAS SLEPT WELL TONIGHT.
--- NOTE | 2018-12-22 01:59 | NUR ---
AFTER ADMIT WAS DONE PT'S DOCTOR WAS CALLED TO OBTAIN PAIN MEDS TO USE WHILE CHANGING THE DRESSING TO HIS INCISION WHICH GOES FROM HIS LEFT HIP DOWN TO HIS SCROTUM. HE WAS GIVEN DILAUDID AND THEN THE DRESSING WAS REMOVED. IT HAS GREENISH DRAINAGE TO KERLIX BUT THE WOUND WAS BEEFY RED AND HEALTHY LOOKING. IT WAS CLEANED AND THEN A WET TO DRY DRESSING WAS REAPPLIED AND PT GOT UP TO GO WALKING. NO PROBLEMS ENCOUNTERED.
[2018-12-22 04:00] VITALS: BP 142/83
[2018-12-22 08:13] VITALS: BP 134/76
--- NOTE | 2018-12-22 09:00 | NUR ---
PT WANTING SOMETHING FOR PAIN BESIDES DILAUDID. PT STATES THE DILAUDID WEARS OFF IN 15 MIN AND HE ONLY WANTS THAT WHEN HE IS GETTING HIS DRESSING CHANGED. PAGED DR. GILES.
--- NOTE | 2018-12-22 09:06 | NUR ---
SPOKE WITH DR. GILES HE STATES TO ORDER WHAT PT TAKES AT HOME. ROXYCODONE 10MG Q4HP FOR PAIN.
[2018-12-22 10:59] VITALS: Ht 182.9 cm; Wt 119.7 kg
[2018-12-22 12:10] VITALS: BP 131/68
--- NOTE | 2018-12-22 12:53 | NUR ---
CONTACT ISOLATION PRECAUTIONS IN PLACE. DENIES ANY NEEDS AT THIS TIME.
--- NOTE | 2018-12-22 13:30 | NUR ---
RIGHT GROIN/THIGH BEEFY RED WOUND DRESSING REMOVED. WET TO DY DRESSING DONE. PT UPSET DR. GILES HAS NOT SEEN HIM YET.
[2018-12-22 15:17] VITALS: BP 114/69
--- NOTE | 2018-12-22 15:30 | NUR ---
SPOKE WITH DR. GILES HE STATES HE WILL TRY TO SEE PT TODAY BUT IT MAY NOT BE UNTIL TOMORROW. HE ALSO STATES HE SEEN PT IN ER AND TOLD HIM HE WAS GOING TO BE ADMITTED. STATED THIS TO PT AND PT VERBALIZED UNDERSTANDING.
--- NOTE | 2018-12-22 16:30 | NUR ---
EXPLAINED TO PT HE HAS CAMPYLOBACTER POSITIVE CULTURE IN STOOL AND THAT IT CAN CAUSE DIARRHEA AND THE DOCTOR ORDERED FLUIDS AND ABX. PT STATES TO ME "THEY'RE JUST LOOK FOR A REASON TO KEEP ME HERE. AND NO ONE HAS TOLD ME WHILE I HAS STOOL OUT MY RECTUM AND NOT MY BAG(COLOSTOMY)."
--- NOTE | 2018-12-22 17:25 | NUR ---
LEFT AC 20G IV INFILTRATED. DC'D WITH CATH INTACT.
--- NOTE | 2018-12-22 18:24 | NUR ---
PT REFUSING TO BE STUCK UNTIL MD COMES TO SEE HIM. HE STATES NOBODY HAS ADDRESSED TO HIM WHY HE IS HERE AND SEE HIM FOR THE REAL REASON HE CAME IN FOR WHICH IS THE STOOL HE IS HAVING OUT OF HIS RECTUM AND IF HE IS NOT GOING TO BE SEEN HE IS GOING TO BE DISCHARGED.
--- NOTE | 2018-12-22 18:28 | NUR ---
BORING INSPECTOR CALLED.
--- NOTE | 2018-12-22 18:41 | NUR ---
MEDIA ANALYST SPOKE WITH PT AND PT STATED TO HER HE WANTS TO BE DISCHARGED. SPOKE WITH DR. HODGE AND SHE STATES PT CAN BE DISCHARGE LONG DR. GILES IS OK WITH IT. SHE ALSO STATES FOR DC PT WILL NEED ZITHROMAX 500MG PO DAILY X5 DAYS AND PT DOES NOT NEED TO TAKE THE ORAL VANCOMYCIN. I VERBALIZED UNDERSTANDING. PAGED DR. GILES.
--- NOTE | 2018-12-22 18:55 | NUR ---
SPOKE WITH DR. GILES HE STATES TO TELL PT THAT NOT ALL STOOL WILL GO IN COLOSTOMY THAT IT CAN COME OUT THE RECTUM. HE STATES HE IS OK FOR PT TO DISCHARGE AND HAVE HIM MAKE A FOLLOW UP APPOINTMENT IN FOUR WEEKS. I VERBALIZED UNDERSTANDING.
[2018-12-22] MEDS ORDERED: ZITHROMAX500 MG PO (18:58)
--- NOTE | 2018-12-22 19:33 | NUR ---
SPOKE WITH PHARMACIST FROM [facility] [address] AND ZITHROMAX 500MG PO DAILY X5 DAYS WAS CALLED IN.
--- NOTE | 2018-12-22 21:45 | NUR ---
GIVEN DISCHARGE INSTRUCTION TO PT. PT PRESCRIPTION CALL IN IN [facility], AND PT REFUSED TO GO TO [facility] GET HIS MEDICINE. HE STATES: "HE WANTS TO GO [facility] IN [place] TO GET HIS MEDICINE IN MONDAY." CALLED [facility] IN [place], THE PHARMACY WAS CLOSED, AND INFORMED IT TO PT.
--- NOTE | 2018-12-24 16:13 | MORECARE ---
CASE MANAGEMENT DISCHARGE SUMMARY PATIENT: KUSUM SHAY UNIT: [id number] ADM DATE: 12/21/18 AGE: 58 : [birth year] SEX: M ROOM/BED: D.1203 AUTHOR: BRIAN HOLLINGSWORTH PHYSICIAN: REFERRING PHYSICIAN: CHRISTINA MILLS MD DATE OF SERVICE: 12/24/18 Discharge Plan Patient Name: KUSUM SHAY Facility: [facility]:[place] : 1960 Planned Disposition: Home Anticipated Discharge Date: 12/22/18 Discharge Date: 12/22/2018 Expected LOS: 1 Initial Reviewer: [id number] Initial Review Date: 12/21/2018 Generated: 12/24/18 5:12 pm Comments DCP- Discharge Planning Updated by [id number]: Bria Griffith on 12/23/18 9:[address] CM RECEIVED TELEPHONE CALL THIS AM FROM [facility]. PATIENT WAS DISCHARGED 12/22/18 LATE PM. THEY RECEIVED TELEPHONE CALL FROM THE PATIENT THIS MORNING. FAXED H/P, DISCHARGE SUMMARY AND DISCHARGE MED LIST TO [facility]. Patient Name: KUSUM SHAY Page [phone] at 1613 All edits/amendments must be made on the electronic document DICTATION DATE: 12/24/181611 MINING MACHINERY ASSEMBLER: ROSELYN 12/24/18 161 RPT#: [id number] DC DATE:12/22/18 STATUS: DIS IN [facility] [address] [place] [address] END OF REPORT
== END 2018-12-22 21:45 | disposition home health service (06) | DRG 372 ==
LOC: D.ER 18:05 → D.EDHOLD 19:40 → D.M3 20:16
PROVIDERS: Family Medicine; ADMIT Family Medicine; ATTEND Family Medicine
DX: A04.5 Campylobacter enteritis (principal); I27.82 Chronic pulmonary embolism; D64.9 Anemia, unspecified; Z87.891 Personal history of nicotine dependence

== ENCOUNTER 2019-02-11 07:29 | Inpatient (IN) | payer MEDICARE ==
[~2019-02-11] VITALS: Ht 185.4 cm; Wt 120.7 kg
[~2019-02-11 07:29] MED LIST changes: +ROXICODONE15 MG PO; +ZITHROMAX500 MG PO
[2019-02-13 09:49] LABS: HEMATOCRIT 36.9 % (42.0-54.0); HEMOGLOBIN 11.4 g/dL (13.5-17.5); MCH 23.4 pg (26.0-34.0); MCHC 30.9 g/dL (31.0-37.0); MCV 75.8 fL (80.0-100.0); MEAN PLATELET VOLUME 9.3 fL (7.4-10.4); RBC 4.87 10x6/uL (4.20-6.10); RDW 15.6 % (11.5-14.5); WBC 8.4 10x3/uL (4.8-10.8)
[2019-02-13 10:00] LABS: ANION GAP 13.5 mmol/L (8-16); CALCIUM 8.4 mg/dL (8.5-10.1); CARBON DIOXIDE 27.3 mmol/L (21.0-32.0); CREATININE - SERUM 1.3 mg/dL (0.6-1.3); POTASSIUM - SERUM 4.8 mmol/L (3.5-5.1)
[2019-02-13] MEDS ORDERED: OXYCODONE HCL E20 MG PO (10:16)
[2019-02-13 10:21] VITALS: BP 144/75; BMI 35.3
--- NOTE | 2019-02-13 14:28 | NUR ---
SCD PUMPERS WERE NOT PUT ON, PATIENT STATED HISTORY OF BLOOD CLOT THREE MONTHS AGO
--- NOTE | 2019-02-13 16:35 | NUR ---
I have reviewed this patient and I concur with the Shift Assessment completed by the Licensed Practical Nurse today this shift.
[2019-02-13 17:11] VITALS: BP 123/68
--- NOTE | 2019-02-13 17:19 | NUR ---
PT TO ROOM 2217 FROM PACU VIA BED. ASSESSMENT PER FLOW SHEET.CALL LIGHT IN REACH. DOOR OPEN TO MONITOR.FAMILY AT BEDSIDE.DRESSING TO RIGHT ABDOMEN CLEAN,DRY AND INTACT.PACKING TO TESTICLES IN PLACE,SECURED BY BRIEFS.
[2019-02-13 17:23] VITALS: BP 123/68; BMI 35.1
[2019-02-13 20:00] VITALS: BP 140/71
--- NOTE | 2019-02-13 20:00 | NUR ---
ASSESSMENT PER FLOWSHEET. IV PATENT RT FOREARM OF NS AT 75CC'S/HR. DRESSING TO ABDOMEN C/D/I DRESSING WITH PACKING TO MICHAEL AREA C/D/I. VOIDED IN URINAL. MONITORING VITAL SIGNS POST OP. RASH COVERING MOST OF PATIENT'S BODY. O2 ON 2L/M PER NC. REMAINS NPO POST OP.
--- NOTE | 2019-02-13 22:00 | NUR ---
EYES CLOSED RESPIRATIONS WITH EASE AND UNLABORED. AROUSES EASILY TO VERBAL STIMULI.
[2019-02-14] VITALS (7 sets, daily range): BP systolic 137–197; BP diastolic 74–102; Ht 185.4 cm; Wt 120.7 kg
--- NOTE | 2019-02-14 00:17 | NUR ---
EYES CLOSED RESPIRATIONS WITH EASE AND UNLABORED.
[2019-02-14 05:39] LABS: BASOPHILS 0.1 % (0-2); EOSINOPHILS 0 % (0-7); HEMATOCRIT 38.1 % (42.0-54.0); HEMOGLOBIN 11.8 g/dL (13.5-17.5); IMMATURE GRANULOCYTES 0.3 % (0-5); LYMPHOCYTES 4.1 % (15-50); MCH 23.2 pg (26.0-34.0); MEAN PLATELET VOLUME 9.7 fL (7.4-10.4); MONOCYTES 5.8 % (2-11); NEUTROPHILS 89.7 % (40-80); PLATELET COUNT 485 10x3/uL (130-400); RBC 5.08 10x6/uL (4.20-6.10); RDW 15.6 % (11.5-14.5)
[2019-02-14 05:46] LABS: WBC 18.2 10x3/uL (4.8-10.8)
[2019-02-14 06:11] LABS: ALBUMIN 2.9 g/dL (3.4-5.0); ALKALINE PHOSPHATASE 105 U/L (46-116); ALT (SGPT) 39 U/L (10-68); BILIRUBIN - TOTAL 0.25 mg/dL (0.2-1.3); CALC OSMOLALITY 278 mosm/kg (275-300); CALCIUM 8.5 mg/dL (8.5-10.1); CHLORIDE - SERUM 103 mmol/L (98-107); CREATININE - SERUM 1.3 mg/dL (0.6-1.3); GLUCOSE 137 mg/dL (74-106); MAGNESIUM - SERUM 1.9 mg/dL (1.8-2.4); PHOSPHOROUS 3.9 mg/dL (2.5-4.9); POTASSIUM - SERUM 4.5 mmol/L (3.5-5.1); PROTEIN - SERUM 7.5 g/dL (6.4-8.2); SODIUM 137 mmol/L (136-145); TROPONIN-I < 0.017 ng/mL (0.000-0.060); UREA NITROGEN 22 mg/dL (7-18); eGFR NON AFRICAN AMERICAN 60 mL/min (90-120)
--- NOTE | 2019-02-14 07:34 | NUR ---
ALERT AND ORIENTED X 3. QUESTIONS REASON FOR NPO STATUS. WILL ADDRESS WITH DOCTOR TODAY. LUNGS CLEAR BILATERALLY IN ALL WHITE. HEART SOUNDS S1 AND S2 HEARD IN ALL WHITE. BOWEL SOUNDS SLUGGISH X 4. DRSG IN PLACE TO ILEOSTOMY REVERSAL SITE C/D/I. DRSG IN PLACE TO GROIN. PSORIASIS TO UPPER EXTREMETIES. PLEXI PULSE BOOTS IN PLACE. O2 NOTED AT 2L NC. IV TO RFA PATENT WITHOUT REDNESS. BED LOW. CALL OSMAN AND PERSONAL ITEMS IN REACH. WILL CONTINUE TO MONITOR.
--- NOTE | 2019-02-14 09:27 | NUR ---
CODING AND REIMBURSEMENT SPECIALIST INITIATED FOR PAIN LEVEL 10/10. ONE TIME DOSE CLONIDINE GIVEN FOR BP 201/106 PER MD ORDER. WILL CONTINUE TO MONITOR.
--- NOTE | 2019-02-14 09:35 | NUR ---
Pt had excisional debridement of perineum and scrotum in 2018. The area is still healing. He states home health continues to perform wet to dry with saline dressing changes. He had reversal of ileostomy yesterday. The wound is packed with 1" iodoform gauze. Wound care will monitor.
--- NOTE | 2019-02-14 11:48 | NUR ---
DRESSING CHANGED TO LEFT GROIN AREA PER ORDER
--- NOTE | 2019-02-14 12:04 | NUR ---
SLEEPING. WILL CONTINUE TO MONITOR.
--- NOTE | 2019-02-14 13:36 | OP ---
PATIENT NAME: KUSUM SHAY MEDICAL RECORD: [id number] :62 LOCATION:D[facility] [id number] ADMISSION DATE:02/13/19 SURGEON: AUGUSTUS GILES MD DATE OF OPERATION: 02/13/2019 PREOPERATIVE DIAGNOSIS: Ileostomy, desires reversal. POSTOPERATIVE DIAGNOSIS: Ileostomy, desires reversal, with extensive intraabdominal adhesions. PROCEDURE: Ileostomy takedown. SURGEON: Augustus Giles MD BACK LINE COOK: None. BLOOD LOSS: Please see the anesthesia sheet. DRAINS: None. The risks, possible complications, and alternatives to the procedure were discussed with the patient. He elected to proceed. OPERATIVE COURSE: The patient was conveyed to the operating room electively on 02/13/2019. General anesthesia was induced by the anesthesia staff. The abdomen was sterilely prepped and draped. A circular incision was accomplished around the patient's double barrel ileostomy. I began to dissect down along the 2 limbs of the ileostomy. I encountered dense adhesions. The patient had a very thick layer of subcutaneous adipose tissue, so it took a while to reach the fascia. Once I reached the fascia, I went about freeing up adhesions that were intraabdominal in order to allow me to dunk the anastomosis into the peritoneal cavity after I had created the anastomosis. I continued my adhesiolysis. I then amputated the top of the ileostomy. I placed the antimesenteric borders of the ileum into apposition side by side with multiple 3-0 Vicryl sutures. I advanced anvils of the ERA-75 stapler down the limbs of the ileostomy. I then fired. The resulting enteric defect was closed with a single firing of the TA 60 stapler. I then excised the tissue on top of the TA 60 stapler. I then imbricated this TA 60 staple line with interrupted 3-0 Vicryls as well as a running 3-0 Vicryl. I tried to place the anastomosis back in the peritoneal cavity and was unable to do so without some further adhesiolysis. In order to gain additional exposure, I had to extend my skin and subcutaneous incision cephalad. Once I was able to place the anastomosis back into the peritoneal cavity, I closed the fascia with running looped #1 PDS. Subcutaneous tissues were closed with running #1 Vicryl. The subdermis was approximated in several areas with 3-0 Vicryls. The skin at several sites was closed with interrupted horizontal mattress 3-0 Vicryls. I then irrigated with hydrogen peroxide and packed the wound with one-inch iodoform gauze. A sterile dressing was applied. The patient was then extubated and conveyed to the postanesthesia care unit, where he was in stable condition. He will be admitted. I anticipate he will have some degree of ileus after this procedure. TRANSINT:[id number] Voice Confirmation ID: [id number] DOCUMENT ID: [id number] OPERATIVE REPORT [id number] KUSUM SHAY, AUGUSTUS MERCEDES at 1336 CC: JASON RODRIGUEZ [id number] DICTATION DATE: 02/13/19 1615 FELT MACHINE MECHANIC: 02/13/19 1909 ADM IN [facility] [address] [place] [address]
--- NOTE | 2019-02-14 13:37 | NUR ---
SLEEPING. WILL CONTINUE TO MONITOR.
--- NOTE | 2019-02-14 15:33 | NUR ---
EDUCATION PROVIDED ON USE OF INCENTIVE SPIROMETER. VERBALIZED UNDERSTANDING. DENIES FURTHER QUESTIONS.
--- NOTE | 2019-02-14 15:40 | NUR ---
ORDER FOR TELEMETRY. NO BOXES AVAILABLE.
--- NOTE | 2019-02-14 15:55 | MORECARE ---
CASE MANAGEMENT DISCHARGE SUMMARY PATIENT: KUSUM SHAY UNIT: [id number] ADM DATE: 02/13/19 AGE: 58 : 62 SEX: M ROOM/BED: D.2217 AUTHOR: BRIAN HOLLINGSWORTH PHYSICIAN: REFERRING PHYSICIAN: AUGUSTUS GILES MD DATE OF SERVICE: 02/14/19 Discharge Plan Patient Name: KUSUM SHAY [facility] [facility] 1960 Planned Disposition: Anticipated Discharge Date: Discharge Date: Expected LOS: Initial Reviewer: [email or web address] Initial Review Date: 02/13/2019 Generated: 02/14/19 4:54 pm Patient Name: KUSUM SHAY Page 21097 at 1555 All edits/amendments must be made on the electronic document DICTATION DATE: 02/14/191553 APPEALS REPRESENTATIVE: ROSELYN 02/14/19 155 RPT#: [id number] DC DATE: STATUS: ADM IN [facility] [address] [place] [address] END OF REPORT
--- NOTE | 2019-02-14 16:08 | MORECARE ---
CASE MANAGEMENT DISCHARGE SUMMARY PATIENT: KUSUM SHAY UNIT: [id number] ADM DATE: 02/13/19 AGE: 58 : 62 SEX: M ROOM/BED: D.2217 AUTHOR: BRIAN HOLLINGSWORTH PHYSICIAN: REFERRING PHYSICIAN: AUGUSTUS GILES MD DATE OF SERVICE: 02/14/19 Discharge Plan Patient Name: KUSUM SHAY [facility] [facility] 1960 Planned Disposition: Anticipated Discharge Date: Discharge Date: Expected LOS: Initial Reviewer: [email or web address] Initial Review Date: 02/13/2019 Generated: 02/14/19 5:08 pm Comments DCP- Discharge Planning Updated by [email or web address]: Roxanne Pineda on 02/14/19 2:[address] attempted to see patient, but he was sleeping. Will see him tomorrow Last DP export: 02/14/19 2:54 p Patient Name: KUSUM SHAY Page [id number] at 1608 All edits/amendments must be made on the electronic document DICTATION DATE: 02/14/191606 SPORTS MANAGEMENT INTERNSHIP: ROSELYN 02/14/191606 RPT#: [id number] DC DATE: STATUS: ADM IN [facility] [address] [place] [address] END OF REPORT
--- NOTE | 2019-02-14 17:42 | NUR ---
SLEEPING. WILL CONTINUE TO MONITOR.
--- NOTE | 2019-02-14 19:00 | NUR ---
REPORT RECEIVED AND CARE OF PT ASSUMED. PT LYING IN LOW COMBS'S POSITION WITH EYES CLOSED AND EASY RESPIRAITONS. IV IN RIGHT FA PATENT WITH NS INFUSING AT 75 ML / HR. DRESSING ON RLQ DRY AND INTACT. WILL MONITOR FOR NEEDS. CALL LIGHT WITHIN REACH.
--- NOTE | 2019-02-14 19:15 | NUR ---
GAVE X2 LEMON GULKANA SODAS.
--- NOTE | 2019-02-14 20:45 | NUR ---
COLLECTED URINE AND DELIVERED TO LAB FOR ORDERED STUDIES.
[2019-02-14 21:05] LABS: APPEARANCE CLEAR (CLEAR); BILIRUBIN NEGATIVE (NEGATIVE); COLOR STRAW (YELLOW); GLUCOSE NEGATIVE (NEGATIVE); KETONE NEGATIVE (NEGATIVE); NITRITE NEGATIVE (NEGATIVE); PROTEIN NEGATIVE (NEGATIVE); SPECIFIC GRAVITY 1.015 (1.005-1.020); UROBILINOGEN NORMAL (NORMAL)
--- NOTE | 2019-02-14 21:23 | NUR ---
HS MEDICATIONS GIVEN. WILL CONTINUE TO MONITOR FOR NEEDS.
--- NOTE | 2019-02-14 21:30 | NUR ---
GAVE X2 LEMON ALLAKAKET SODAS.
[2019-02-15 02:08] VITALS: BP 143/76
[2019-02-15 04:49] VITALS: BP 151/80
--- NOTE | 2019-02-15 05:32 | NUR ---
CHANGED DRESSING ON LEFT GROIN AREA...WET TO DRY 4X4'S.
[2019-02-15 05:50] LABS: BASOPHILS 0.3 % (0-2); EOSINOPHILS 0.5 % (0-7); HEMATOCRIT 35.8 % (42.0-54.0); IMMATURE GRANULOCYTES 0.2 % (0-5); MCHC 30.7 g/dL (31.0-37.0); MCV 74.9 fL (80.0-100.0); MONOCYTES 12.4 % (2-11); NEUTROPHILS 73.6 % (40-80); PLATELET COUNT 412 10x3/uL (130-400); RBC 4.78 10x6/uL (4.20-6.10); RDW 16.1 % (11.5-14.5); WBC 16.9 10x3/uL (4.8-10.8)
[2019-02-15 06:02] LABS: ALBUMIN 2.5 g/dL (3.4-5.0); ANION GAP 14.8 mmol/L (8-16); BILIRUBIN - TOTAL 0.36 mg/dL (0.2-1.3); CALCIUM 8.1 mg/dL (8.5-10.1); CARBON DIOXIDE 25.3 mmol/L (21.0-32.0); CREATININE - SERUM 1.2 mg/dL (0.6-1.3); POTASSIUM - SERUM 4.1 mmol/L (3.5-5.1); PROTEIN - SERUM 6.9 g/dL (6.4-8.2)
--- NOTE | 2019-02-15 07:26 | NUR ---
ALERT AND ORIENTED X 3. LUNGS CLEAR BILATERALLY IN ALL WHITE. BOWEL SOUNDS SLUGGISH X 4. DRSG TO RLQ C/D/I. 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 DRSG C/D/I. IV TO RFA PATENT WITHOUT REDNESS. DILAUDID ENERGY OPERATIONS VICE PRESIDENT INFUSING. O2 IN PLACE AT 2L NC. PLEXI PULSE BOOTS IN PLACE. TELEMETRY IN PLACE. HEART SOUNDS S1 AND S2 HEARD IN ALL WHITE. BED LOW. CALL OSMAN AND PERSONAL ITEMS IN REACH. WILL CONTINUE TO MONITOR.
--- NOTE | 2019-02-15 09:30 | NUR ---
SPOKE WITH [facility] WITH PATIENT PERMISSION. VERIFIED ADMITTING DATE AND DIAGNOSIS.
[2019-02-15 09:39] VITALS: BP 159/71
--- NOTE | 2019-02-15 10:02 | NUR ---
SLEEPING. WILL CONTINUE TO MONITOR.
--- NOTE | 2019-02-15 12:17 | NUR ---
RESTING IN BED. DENIES PAIN. DENIES NEEDS.
--- NOTE | 2019-02-15 13:13 | NUR ---
TWO APPLE ENSURE ORDERED PER REQUEST. DENIES FURTHER NEEDS.
--- NOTE | 2019-02-15 13:25 | NUR ---
DRESSING CHANGED TO ABD. OLD DRSG COMING OFF. PATIENT REQUESTED NEW DRESSING. INCISION C/D/I WITHOUT SIGNS OF INFECTION.
[2019-02-15 13:38] VITALS: BP 113/55
--- NOTE | 2019-02-15 13:51 | NUR ---
STATES HAS PASSED GAS. WANTS REGULAR DIET. WILL NOTIFY PHYSICIAN.
--- NOTE | 2019-02-15 14:15 | MORECARE ---
CASE MANAGEMENT DISCHARGE SUMMARY PATIENT: KUSUM SHAY UNIT: [id number] ADM DATE: 02/13/19 AGE: 58 : 62 SEX: M ROOM/BED: D.2217 AUTHOR: BRIAN HOLLINGSWORTH PHYSICIAN: REFERRING PHYSICIAN: AUGUSTUS GILES MD DATE OF SERVICE: 02/15/19 Discharge Plan Patient Name: KUSUM SHAY [facility] [facility] 1960 Planned Disposition: Home Anticipated Discharge Date: Discharge Date: Expected LOS: Initial Reviewer: [email or web address] Initial Review Date: 02/13/2019 Generated: 02/15/19 3:15 pm Comments DCP- Discharge Planning Updated by [email or web address]: Roxanne Pineda on 02/14/19 2:[address] attempted to see patient, but he was sleeping. Will see him tomorrow DCPIA - Discharge Planning Initial Assessment Updated by [email or web address]: Roxanne Pineda on 02/15/19 2:13 pm * Is the patient Alert and Oriented? Yes * How many steps to enter\exit or inside your home? * PCP Car[facility] * [facility]acy [facility] * Preadmission Environment Home with Family * ADLs Independent * Equipment Hospital Bed Wheelchair * List name and contact numbers for known caregivers / representatives who currently or will assist patient after discharge: Gabrielle Elmore [phone] * Verbal permission to speak to the caregivers and representatives has been obtained from the patient. Yes * Community resources currently utilized Home Health * Please name any agencies selected above. [facility] * Additional services required to return to the preadmission environment? No * Can the patient safely return to the preadmission environment? Yes * Has this patient been hospitalized within the prior 30 days at any hospital? No Last DP export: 02/14/19 3:08 p Patient Name: KUSUM SHAY Page [id number] at 1410 All edits/amendments must be made on the electronic document DICTATION DATE: 02/15/191413 CONFIGURATION RELEASE MANAGER: ROSELYN 02/15/19 141 RPT#: [id number] DC DATE: STATUS: ADM IN [facility] [address] [place] [address] END OF REPORT
--- NOTE | 2019-02-15 14:24 | MORECARE ---
CASE MANAGEMENT DISCHARGE SUMMARY PATIENT: KUSUM SHAY UNIT: [id number] ADM DATE: 02/13/19 AGE: 58 : 62 SEX: M ROOM/BED: D.2217 AUTHOR: EDELDOC PHYSICIAN: REFERRING PHYSICIAN: AUGUSTUS GILES MD DATE OF SERVICE: 02/15/19 Discharge Plan Patient Name: KUSUM SHAY Facility: [facility]:[place] : 1960 Planned Disposition: Home Anticipated Discharge Date: Discharge Date: Expected LOS: Initial Reviewer: [email or web address] Initial Review Date: 02/13/2019 Generated: 02/15/19 3:24 pm Comments DCP- Discharge Planning Updated by [email or web address]: Roxanne Pineda on 02/15/19 1:[address] Patient Name: KUSUM SHAY Admission Status: Elective Accout number: [id number] Admission Date: 02-13-2019 : 1960 Admission Diagnosis: Attending: AUGUSTUS GILES Current LOS: 2 Anticipated DC Date: Planned Disposition: Home Primary Insurance: [facility] MEDIC[facility] SOLUTIONS Discharge Planning Comments: CM met with patient to complete initial dc planning assessment. CM educated patient on the CM role and verbal consent given by patient to complete assessment. Patient lives at home where he states he is independent with his care. At discharge patient plans to return home and feels this is a safe discharge. He is current with [facility]. CM discussed availability of home health, rehab services, and medical equipment. He has a hospital bed & wheelchair at home. Patient denied known discharge needs at this time. CM will continue to follow and will assist as needed with dc plans/needs. Artificial Stone Setter: Roxanne Pineda DCP- Discharge Planning Updated by [id number]: Roxanne Pineda on 02/14/19 2:[address] attempted to see patient, but he was sleeping. Will see him tomorrow DCPIA - Discharge Planning Initial Assessment Updated by [email or web address]: Roxanne Pineda on 02/15/19 2:13 pm * Is the patient Alert and Oriented? Yes * How many steps to enter\exit or inside your home? * PCP Carreon * [facility] * Preadmission Environment Home with Family * ADLs Independent * Equipment Hospital Bed Wheelchair * List name and contact numbers for known caregivers / representatives who currently or will assist patient after discharge: Gabrielle Elmore [phone] * Verbal permission to speak to the caregivers and representatives has been obtained from the patient. Yes * Community resources currently utilized Home Health * Please name any agencies selected above. [facility] * Additional services required to return to the preadmission environment? No * Can the patient safely return to the preadmission environment? Yes * Has this patient been hospitalized within the prior 30 days at any hospital? No Coverage Notice Reviewer: [email or web address] Chandrika Pineda Notice Issued Date-Time: 02/15/2019 14:00 Notice Type: Patient Choice Letter Notice Delivered To: Patient Relationship to Patient: Card Doffer Name: Delivery Method: HAND - Hand Delivered Alexandra Days: Prior Verbal Notification: Recipient Understood Notice: Yes Recipient Signature: Yes Med Rec Note Co-signed by Attending: Coverage Notice Comment: Last DP export: 02/15/19 1:15 p Patient Name: KUSUM SHAY Page [id number] at 1424 All edits/amendments must be made on the electronic document DICTATION DATE: 02/15/191422 SPEED RUNNER: ROSELYN 02/15/191422 RPT#: [id number] DC DATE: STATUS: ADM IN [facility] [address] [place] [address] END OF REPORT
--- NOTE | 2019-02-15 14:34 | NUR ---
RESTING IN BED. DENIES NEEDS. FRIEND AT BEDSIDE.
--- NOTE | 2019-02-15 15:07 | NUR ---
BOLUS DOSE OF SURVEY SUPERVISOR ORDERED PER MD. NO BOLUS DOSE IN SURVEY SUPERVISOR ORDER. SPOKE WITH PATIENT. PATIENT DOES NOT WANT BOLUS. STATES DOES NOT WANT ME TO CALL DOCTOR. STATES "I'M FINE. I'M SLEEPING PRETTY GOOD ALREADY TOO." WILL CONTINUE TO MONITOR.
--- NOTE | 2019-02-15 15:20 | NUR ---
EDUCATION PROVIDED ON IMPORTANCE OF INCENTIVE SPIROMETER. STATES HAS BEEN USING IR. IR AT BEDSIDE. DEMONSTRATED USE.
--- NOTE | 2019-02-15 15:45 | NUR ---
STILL REQUESTING REGULAR DIET FOR DINNER. SILVANO MERCEDES. WAITING FOR CALL BACK.
--- NOTE | 2019-02-15 15:51 | NUR ---
SPOKE WITH DR GILES ABOUT ADVANCING TO REGULAR DIET. STATES IF PATIENT HAS PASSED GAS CAN ADVANCE DIET. PATIENT HAS PASSED GAS. DIET CHANGED TO REGULAR.
--- NOTE | 2019-02-15 16:40 | NUR ---
IV TO RIGHT WRIST INFILTRATED. REMOVED WITH TIP INTACT. RESITED TO [facility].
[2019-02-15 17:57] VITALS: BP 116/60
--- NOTE | 2019-02-15 18:22 | NUR ---
RESTING IN BED. TOLERATED REGULAR DIET. ATE 75 PERCENT DINNER.
--- NOTE | 2019-02-15 19:00 | NUR ---
REPORT RECEIVED AND CARE OF PT ASSUMED. PT LYING IN LOW COMBS'S POSITION WITH EYES CLOSED. IV IN LEFT FA PATENT WITH NS INFUSING AT 75 ML / HR AND AIR HOSE COUPLER W/ DILAUDID IN USE FOR PAIN CONTROL. DRESSING ON ABDOMEN CLEAN AND DRY. WILL MONITOR FOR NEEDS.
[2019-02-15 20:00] VITALS: BP 131/56
--- NOTE | 2019-02-15 22:23 | NUR ---
HS MEDICATIONS GIVEN. WILL CONTINUE TO MONITOR FOR NEEDS.
[2019-02-16] VITALS: BP 128/61
[2019-02-16 03:00] VITALS: BP 131/59
--- NOTE | 2019-02-16 03:47 | NUR ---
CHANGED DRESSING ON LEFT GROIN AREA.
[2019-02-16 05:59] LABS: BASOPHILS 0.6 % (0-2); EOSINOPHILS 3.2 % (0-7); HEMATOCRIT 34.5 % (42.0-54.0); HEMOGLOBIN 10.4 g/dL (13.5-17.5); IMMATURE GRANULOCYTES 0.3 % (0-5); LYMPHOCYTES 14.5 % (15-50); MCH 22.7 pg (26.0-34.0); MCHC 30.1 g/dL (31.0-37.0); MCV 75.3 fL (80.0-100.0); MEAN PLATELET VOLUME 9.6 fL (7.4-10.4); MONOCYTES 12.1 % (2-11); NEUTROPHILS 69.3 % (40-80); PLATELET COUNT 391 10x3/uL (130-400); RBC 4.58 10x6/uL (4.20-6.10); RDW 15.9 % (11.5-14.5)
[2019-02-16 06:00] LABS: WBC 11.8 10x3/uL (4.8-10.8)
[2019-02-16 07:13] LABS: ALBUMIN 2.3 g/dL (3.4-5.0); ANION GAP 10.6 mmol/L (8-16); BILIRUBIN - TOTAL 0.31 mg/dL (0.2-1.3); CARBON DIOXIDE 28.2 mmol/L (21.0-32.0); CREATININE - SERUM 1.2 mg/dL (0.6-1.3); POTASSIUM - SERUM 3.8 mmol/L (3.5-5.1); PROTEIN - SERUM 6.7 g/dL (6.4-8.2)
--- NOTE | 2019-02-16 07:50 | NUR ---
PT LYING IN BED, STATES MORE SORE THAN HURTING. BED IN LOW POSITION, CL IN REACH. PT STATED HE HOPES TO BE DC TODAY. ADVISED PT HE WILL NEED TO SPEAK TO DR IN REGARDS TO DISCHARGE PLANS. NO NEEDS VOICED, CONTINUE WITH PLAN OF CARE
[2019-02-16 08:49] VITALS: BP 145/71
--- NOTE | 2019-02-16 09:01 | NUR ---
PT IV INFILTRATED PT IS HOPING TO GO HOME TODAY AND REFUSES RESTICK. STATES HE WANTS DR TO PLACE ON [address] SO HE MAY NE DC. WILL SEE WHO IS ONCCOLE AND PAGE FOR ORDERS
[2019-02-16] MEDS ORDERED: LEVAQUIN750 MG PO (09:29)
[2019-02-16] MEDS ORDERED: HCTZ25 MG PO (09:30)
[2019-02-16] MEDS ORDERED: LISINOPRIL10 MG PO (09:30)
--- NOTE | 2019-02-16 10:38 | MORECARE ---
CASE MANAGEMENT DISCHARGE SUMMARY PATIENT: KUSUM SHAY UNIT: [id number] ADM DATE: 02/13/19 AGE: 58 : 62 SEX: M ROOM/BED: D.2217 AUTHOR: BRIAN HOLLINGSWORTH PHYSICIAN: REFERRING PHYSICIAN: AUGUSTUS GILES MD DATE OF SERVICE: 02/16/19 Discharge Plan Patient Name: KUSUM SHAY Facility: [facility]:[place] : 1960 Planned Disposition: Home Anticipated Discharge Date: Discharge Date: Expected LOS: Initial Reviewer: [email or web address] Initial Review Date: 02/13/2019 Generated: 02/16/19 11:37 am Comments DCP- Discharge Planning Updated by [email or web address]: Jennifer Amador on 02/16/19 9:[address] Patient Name: KUSUM SHAY Admission Status: Elective Accout number: [id number] Admission Date: 02-13-2019 : 1960 Admission Diagnosis: Attending: AUGUSTUS GILES Current LOS: 3 Anticipated DC Date: Planned Disposition: Home Primary Insurance: [facility] MEDICARE SOLUTIONS Discharge Planning Comments: dc'd with continuation of [facility] signed Mobile Equipment Servicer: Jenniefr Amador DCP- Discharge Planning Updated by [email or web address]: Roxanne Pineda on 02/15/19 1:[address] Patient Name: KUSUM SHAY Admission Status: Elective Accout number: [id number] Admission Date: 02-13-2019 : 1960 Admission Diagnosis: Attending: AUGUSTUS GILES Current LOS: 2 Anticipated DC Date: Planned Disposition: Home Primary Insurance: [facility] MEDICARE SOLUTIONS Discharge Planning Comments: CM met with patient to complete initial dc planning assessment. CM educated patient on the CM role and verbal consent given by patient to complete assessment. Patient lives at home where he states he is independent with his care. At discharge patient plans to return home and feels this is a safe discharge. He is current with [facility]. CM discussed availability of home health, rehab services, and medical equipment. He has a hospital bed & wheelchair at home. Patient denied known discharge needs at this time. CM will continue to follow and will assist as needed with dc plans/needs. Mobile Equipment Servicer: Roxanne Pineda DCP- Discharge Planning Updated by [email or web address]: Roxanne Pineda on 02/14/19 2:[address] attempted to see patient, but he was sleeping. Will see him tomorrow DCPIA - Discharge Planning Initial Assessment Updated by [email or web address]: Roxanne Pineda on 02/15/19 2:13 pm * Is the patient Alert and Oriented? Yes * How many steps to enter\exit or inside your home? * PCP Car[facility] * [facility] * Preadmission Environment Home with Family * ADLs Independent * Equipment Hospital Bed Wheelchair * List name and contact numbers for known caregivers / representatives who currently or will assist patient after discharge: Gabrielle Ramírez [phone] * Verbal permission to speak to the caregivers and representatives has been obtained from the patient. Yes * Community resources currently utilized Home Health * Please name any agencies selected above. [facility] * Additional services required to return to the preadmission environment? No * Can the patient safely return to the preadmission environment? Yes * Has this patient been hospitalized within the prior 30 days at any hospital? No Coverage Notice Reviewer: [id number] - Roxanne Perazaken Notice Issued Date-Time: 02/15/2019 14:00 Notice Type: Patient Choice Letter Notice Delivered To: Patient Relationship to Patient: Railway Signal Technician Name: Delivery Method: HAND - Hand Delivered Alexandra Days: Prior Verbal Notification: Recipient Understood Notice: Yes Recipient Signature: Yes Med Rec Note Co-signed by Attending: Coverage Notice Comment: Reviewer: [id number] Chandrika Amador Notice Issued Date-Time: 02/16/2019 10:15 Notice Type: IM Discharge Notice Notice Delivered To: Patient Relationship to Patient: Self Railway Signal Technician Name: Delivery Method: HAND - Hand Delivered Alexandra Days: Prior Verbal Notification: Recipient Understood Notice: Yes Recipient Signature: Yes Med Rec Note Co-signed by Attending: Coverage Notice Comment: Last DP export: 02/15/19 1:24 p Patient Name: KUSUM SHAY Page 39661 at 1038 All edits/amendments must be made on the electronic document DICTATION DATE: 02/16/19 1037 HOGSHEAD LINER: ROSELYN 02/16/19 1037 RPT#: [id number] DC DATE: STATUS: ADM IN [facility] [address] [place] [address] END OF REPORT
--- NOTE | 2019-02-16 11:21 | NUR ---
dc pthome. went over dc instructions and follow up care with pt all questions answered. no other needs voiced
--- NOTE | 2019-02-18 15:12 | MORECARE ---
CASE MANAGEMENT DISCHARGE SUMMARY PATIENT: KUSUM SHAY UNIT: [id number] ADM DATE: 02/13/19 AGE: 58 : 62 SEX: M ROOM/BED: D.2217 AUTHOR: BRIAN HOLLINGSWORTH PHYSICIAN: REFERRING PHYSICIAN: AUGUSTUS GILES MD DATE OF SERVICE: 02/18/19 Discharge Plan Patient Name: KUSUM SHAY Facility: [facility]:[place] : 1960 Planned Disposition: Home Anticipated Discharge Date: Discharge Date: 02/16/2019 Expected LOS: 0 Initial Reviewer: [email or web address] Initial Review Date: 02/13/2019 Generated: 02/18/19 4:11 pm Comments DCP- Discharge Planning Updated by [email or web address]: Jennifer Amador on 02/16/19 9:[address] Patient Name: KUSUM SHAY Admission Status: Elective Accout number: [id number] Admission Date: 02-13-2019 : 1960 Admission Diagnosis: Attending: AUGUSTUS GILES Current LOS: 3 Anticipated DC Date: Planned Disposition: Home Primary Insurance: [facility] MEDICARE SOLUTIONS Discharge Planning Comments: dc'd with continuation of [facility] signed It Generalist: Jennifer Amador DCP- Discharge Planning Updated by [email or web address]: Roxanne Pineda on 02/15/19 1:[address] Patient Name: KUSUM SHAY Admission Status: Elective Accout number: [id number] Admission Date: 02-13-2019 : 1960 Admission Diagnosis: Attending: AUGUSTUS GILES Current LOS: 2 Anticipated DC Date: Planned Disposition: Home Primary Insurance: [facility] MEDIC[facility] SOLUTIONS Discharge Planning Comments: CM met with patient to complete initial dc planning assessment. CM educated patient on the CM role and verbal consent given by patient to complete assessment. Patient lives at home where he states he is independent with his care. At discharge patient plans to return home and feels this is a safe discharge. He is current with [facility]. CM discussed availability of home health, rehab services, and medical equipment. He has a hospital bed & wheelchair at home. Patient denied known discharge needs at this time. CM will continue to follow and will assist as needed with dc plans/needs. It Generalist: Roxanne Pineda DCP- Discharge Planning Updated by [email or web address]: Roxanne Edwin on 02/14/19 2:[address] attempted to see patient, but he was sleeping. Will see him tomorrow DCPIA - Discharge Planning Initial Assessment Updated by [email or web address]: Roxanne Edwin on 02/15/19 2:13 pm * Is the patient Alert and Oriented? Yes * How many steps to enter\exit or inside your home? * PCP Car[facility] * [facility] * Preadmission Environment Home with Family * ADLs Independent * Equipment Hospital Bed Wheelchair * List name and contact numbers for known caregivers / representatives who currently or will assist patient after discharge: Gabrielle Ramírez [phone] * Verbal permission to speak to the caregivers and representatives has been obtained from the patient. Yes * Community resources currently utilized Home Health * Please name any agencies selected above. [facility] * Additional services required to return to the preadmission environment? No * Can the patient safely return to the preadmission environment? Yes * Has this patient been hospitalized within the prior 30 days at any hospital? No Coverage Notice Reviewer: [email or web address] - Roxanne Edwin Notice Issued Date-Time: 02/15/2019 14:00 Notice Type: Patient Choice Letter Notice Delivered To: Patient Relationship to Patient: Entry Level Electrical Engineer Name: Delivery Method: HAND - Hand Delivered Alexandra Days: Prior Verbal Notification: Recipient Understood Notice: Yes Recipient Signature: Yes Med Rec Note Co-signed by Attending: Coverage Notice Comment: Reviewer: [id number] Chandrika Amador Notice Issued Date-Time: 02/16/2019 10:15 Notice Type: IM Discharge Notice Notice Delivered To: Patient Relationship to Patient: Self Entry Level Electrical Engineer Name: Delivery Method: HAND - Hand Delivered Alexandra Days: Prior Verbal Notification: Recipient Understood Notice: Yes Recipient Signature: Yes Med Rec Note Co-signed by Attending: Coverage Notice Comment: Last DP export: 02/16/19 9:38 a Patient Name: KUSUM SHAY Page 13702 at 1512 All edits/amendments must be made on the electronic document DICTATION DATE: 02/18/191510 BEAM MACHINE OPERATOR: ROSELYN 02/18/19 1511 RPT#: [id number] DC DATE:02/16/19 STATUS: DIS IN [facility] [address] [place] [address] END OF REPORT
== END 2019-02-16 11:21 | disposition home health service (06) | DRG 330 ==
LOC: D.SDCHOLD 02-13 09:16 → D.MS 02-13 09:16 → D.SDCHOLD 02-13 09:45 → D.MS 02-13 16:10
PROVIDERS: Anesthesiology; Emergency Medicine; ADMIT Surgery; ATTEND Surgery
PROC: 0DSB0ZZ Reposition Ileum, Open Approach (ICD-10-PCS; principal; 2019-02-13 11:45)
DX: Z43.2 Encounter for attention to ileostomy (principal); J98.11 Atelectasis; K66.0 Peritoneal adhesions (postprocedural) (postinfection)